=== PATIENT | male | born 1955 | race American Indian/Alaskan Native ===

== ENCOUNTER 2017-09-23 04:29 | Emergency (ER) | payer MEDICARE ==
[2017-09-23 06:03] LABS: Eosinophils # (Auto) 0.3 K/mm3 (0.0-0.4); Eosinophils % (Auto) 5.9 % (0.0-4.3); Hematocrit 38.7 % (35.5-45.6); Lymphocytes # (Auto) 2.2 K/mm3 (1.2-5.4); Lymphocytes % (Auto) 45.6 % (13.4-35.0); Mean Corpuscular HGB Conc 34 % (32-34); Mean Corpuscular Hemoglobin 34 pg (28-32); Mean Corpuscular Volume 100 fl (84-94); Monocytes # (Auto) 0.6 K/mm3 (0.0-0.8); Monocytes % (Auto) 11.7 % (0.0-7.3); Platelet Count 201 K/mm3 (140-440); Red Blood Count 3.86 M/mm3 (3.65-5.03); Red Cell Distribution Width 14.9 % (13.2-15.2)
--- NOTE | 2017-09-23 06:31 | Emergency Department Report ---
ED General Adult HPI - General Chief complaint: Medical Clearance Stated complaint: MED CLEARANCE Time Seen by Provider: 09/23/17 06:23 Source: patient, EMS Mode of arrival: Stretcher Limitations: No Limitations - History of Present Illness Initial comments: This is a 61-year-old man with a history of schizophrenia. He was seen and observed at [facility] through Sunday. He was transferred to [facility]. He states that his last heroin use was on Sunday. He states he also uses cocaine. He admits to intravenous drug abuse. I am not certain why [facility] wouldn't have sent this patient for emergency evaluation. He is resting comfortably. He is clearly not withdrawing from any medication. He is not acutely psychotic. The patient denies any hallucinosis now. He states the medicine that he is given at [facility] was beneficial. Apparently he additionally has history of HIV COPD and perhaps coronary artery disease/PA. He is literally resting comfortably and has no complaints. He denies any depression or suicidal ideation. He states he wants help with his drug use. -: Gradual - Related Data Allergies Allergy/AdvReac Type Severity Reaction Status Date / Time No Known Allergies Allergy Unverified 09/23/17 05:41 ED Review of Systems ROS: Stated complaint: MED CLEARANCE Other details as noted in HPI Constitutional: denies: chills, fever Eyes: denies: eye pain, eye discharge, vision change ENT: denies: ear pain, throat pain Respiratory: denies: cough, shortness of breath, wheezing Cardiovascular: denies: chest pain, palpitations Endocrine: no symptoms reported Gastrointestinal: denies: abdominal pain, nausea, diarrhea Genitourinary: denies: urgency, dysuria Musculoskeletal: denies: back pain, joint swelling, arthralgia Skin: denies: rash, lesions Neurological: denies: headache, weakness, paresthesias Psychiatric: as per HPI. denies: anxiety, depression, auditory hallucinations, visual hallucinations, homicidal thoughts, suicidal thoughts Hematological/Lymphatic: denies: easy bleeding, easy bruising ED Past Medical Hx - Past Medical History Previous Medical History?: Yes Hx Hypertension: Yes Hx Heart Attack/AMI: Yes Hx Psychiatric Treatment: Yes Hx COPD: Yes Hx HIV: Yes Additional medical history: Schizophrenia - Surgical History Past Surgical History?: No - Social History Smoking Status: Current Every Day Smoker Substance Use Type: Cocaine ED Physical Exam - General Limitations: No Limitations General appearance: alert, in no apparent distress - Head Head exam: Present: atraumatic, normocephalic - Eye Eye exam: Present: normal appearance, PERRL, EOMI. Absent: scleral icterus - ENT ENT exam: Present: mucous membranes moist - Neck Neck exam: Present: normal inspection - Respiratory Respiratory exam: Present: normal lung sounds bilaterally. Absent: respiratory distress - Cardiovascular Cardiovascular Exam: Present: regular rate, normal rhythm. Absent: systolic murmur, diastolic murmur, rubs, gallop - GI/Abdominal GI/Abdominal exam: Present: soft, normal bowel sounds. Absent: distended, tenderness, guarding, rebound, rigid - Rectal Rectal exam: Present: deferred - Extremities Exam Extremities exam: Present: normal inspection - Back Exam Back exam: Present: normal inspection - Neurological Exam Neurological exam: Present: alert, oriented X3, CN II-XII intact. Absent: motor sensory deficit - Psychiatric Psychiatric exam: Present: normal affect, normal mood - Skin Skin exam: Present: warm, dry, intact, normal color. Absent: rash ED Course Vital Signs 09/23/17 05:00 Temperature 97.7 F Pulse Rate 64 Respiratory 16 Rate Blood Pressure 142/85 Blood Pressure 142/85 [Right] O2 Sat by Pulse 100 Oximetry ED Medical Decision Making - Lab Data Result diagrams: 09/23/17 05:52 09/23/17 05:52 Laboratory Results - last 24 hr 09/23/17 05:52 WBC 4.9 RBC 3.86 Hgb 13.0 Hct 38.7 MCV 100 H MCH 34 H MCHC 34 RDW 14.9 Plt Count 201 Lymph % (Auto) 45.6 H [place] % (Auto) 11.7 H Eos % (Auto) 5.9 H Baso % (Auto) 1.0 Lymph # 2.2 [place] # 0.6 Eos # 0.3 Baso # 0.0 Seg Neutrophils % 35.8 L Seg Neutrophils # 1.8 Laboratory Results - last 24 hr 09/23/17 09/23/17 09/23/17 05:20 05:20 05:52 WBC RBC Hgb Hct MCV MCH MCHC RDW Plt Count Lymph % (Auto) [place] % (Auto) Eos % (Auto) Baso % (Auto) Lymph # [place] # Eos # Baso # Seg Neutrophils % Seg Neutrophils # Sodium Potassium Chloride Carbon Dioxide Anion Gap BUN Creatinine Estimated GFR BUN/Creatinine Ratio Glucose Calcium Urine Color Yellow Urine Turbidity Clear Urine pH 6.0 Ur Specific [place] 1.006 Urine Protein 30 mg/dl Urine Glucose (UA) Neg Urine Ketones Neg Urine Blood Neg Urine Nitrite Neg Urine Bilirubin Neg Urine Urobilinogen < 2.0 Ur Leukocyte Esterase Neg Urine WBC (Auto) 1.0 Urine RBC (Auto) 1.0 Salicylates < 0.3 L Urine Opiates Screen Presumptive negative Urine Methadone Screen Presumptive negative Acetaminophen Ur Barbiturates Screen Presumptive negative Ur Phencyclidine Scrn Presumptive negative Ur Amphetamines Screen Presumptive negative U Benzodiazepines Scrn Presumptive negative Urine Cocaine Screen Presumptive negative U Marijuana (THC) Screen Presumptive negative Drugs of Abuse Note Disclamer Plasma/Serum Alcohol 09/23/17 09/23/17 09/23/17 05:52 05:52 05:52 WBC RBC Hgb Hct MCV MCH MCHC RDW Plt Count Lymph % (Auto) [place] % (Auto) Eos % (Auto) Baso % (Auto) Lymph # [place] # Eos # Baso # Seg Neutrophils % Seg Neutrophils # Sodium 136 L Potassium 3.7 Chloride 97.6 L Carbon Dioxide 21 L Anion Gap 21 BUN 16 Creatinine 1.6 H Estimated GFR 53 BUN/Creatinine Ratio 10 Glucose 133 H Calcium 9.7 Urine Color Urine Turbidity Urine pH Ur Specific [place] Urine Protein Urine Glucose (UA) Urine Ketones Urine Blood Urine Nitrite Urine Bilirubin Urine Urobilinogen Ur Leukocyte Esterase Urine WBC (Auto) Urine RBC (Auto) Salicylates Urine Opiates Screen Urine Methadone Screen Acetaminophen < 5.0 L Ur Barbiturates Screen Ur Phencyclidine Scrn Ur Amphetamines Screen U Benzodiazepines Scrn Urine Cocaine Screen U Marijuana (THC) Screen Drugs of Abuse Note Plasma/Serum Alcohol < 0.01 09/23/17 05:52 WBC 4.9 RBC 3.86 Hgb 13.0 Hct 38.7 MCV 100 H MCH 34 H MCHC 34 RDW 14.9 Plt Count 201 Lymph % (Auto) 45.6 H [place] % (Auto) 11.7 H Eos % (Auto) 5.9 H Baso % (Auto) 1.0 Lymph # 2.2 [place] # 0.6 Eos # 0.3 Baso # 0.0 Seg Neutrophils % 35.8 L Seg Neutrophils # 1.8 Sodium Potassium Chloride Carbon Dioxide Anion Gap BUN Creatinine Estimated GFR BUN/Creatinine Ratio Glucose Calcium Urine Color Urine Turbidity Urine pH Ur Specific [place] Urine Protein Urine Glucose (UA) Urine Ketones Urine Blood Urine Nitrite Urine Bilirubin Urine Urobilinogen Ur Leukocyte Esterase Urine WBC (Auto) Urine RBC (Auto) Salicylates Urine Opiates Screen Urine Methadone Screen Acetaminophen Ur Barbiturates Screen Ur Phencyclidine Scrn Ur Amphetamines Screen U Benzodiazepines Scrn Urine Cocaine Screen U Marijuana (THC) Screen Drugs of Abuse Note Plasma/Serum Alcohol Critical care attestation.: If time is entered above; I have spent that time in minutes in the direct care of this critically ill patient, excluding procedure time. ED Disposition Clinical Impression: Polysubstance abuse Schizophrenia Qualifiers: Schizophrenia type: unspecified Qualified Code(s): F20.9 - Schizophrenia, unspecified Disposition: TO HOME OR SELFCARE Is pt being admited?: No Does the pt Need Aspirin: No Condition: Stable Instructions: Schizophrenia (ED), Polysubstance Abuse (ED) Additional Instructions: Further care at the [facility]. No emergency treatment is required at this time. Certainly continue your medication for schizophrenia. [facility] to evaluate this patient for his polysubstance abuse and recommended treatment thereof. Referrals: PRIMARY CARE [Primary Care Provider] - 3-5 Days [facility] provider [Other] - 3-5 Days Time of Disposition: 07:53
[2017-09-23 06:43] LABS: Calcium 9.7 mg/dL (8.4-10.2)
[2017-09-23 07:21] LABS: Bilirubin,Urine NEG (Negative); Blood,Urine NEG (Negative); Color,Urine Yellow (Yellow); Urobilinogen,Urine < 2.0 mg/dL (<2.0)
[2017-09-23 07:29] LABS: Amphetamine Screen,Urine PRESUMPTIVE NEGATIVE; Benzodiazepines Screen,Urine PRESUMPTIVE NEGATIVE; Cannabinoid Screen,Urine PRESUMPTIVE NEGATIVE; Cocaine Screen,Urine PRESUMPTIVE NEGATIVE; Methadone Screen,Urine PRESUMPTIVE NEGATIVE; Opiate Screen,Urine PRESUMPTIVE NEGATIVE
[2017-09-23 09:55] VITALS: BP 128/82
== END 2017-09-23 09:57 | disposition home or self-care (01) ==
LOC: ED 04:29
DX: F20.9 Schizophrenia, unspecified (principal); F11.10 Opioid abuse, uncomplicated; F14.10 Cocaine abuse, uncomplicated; F19.10 Other psychoactive substance abuse, uncomplicated; I10 Essential (primary) hypertension; I25.2 Old myocardial infarction; J44.9 Chronic obstructive pulmonary disease, unspecified; F17.200 Nicotine dependence, unspecified, uncomplicated
CPT/HCPCS: 36415; 80048; 80307; 81001; 85025; 99284; G0480; 80320

== ENCOUNTER 2018-09-17 15:25 | Inpatient (IN) | payer MEDICARE ==
--- NOTE | 2018-09-17 16:34 | Event Note ---
ED Screening Note ED Screening Note: HIV DX 1992 HTN FEELS LIKE HE SOMETHING STUCK IN HIS THROAT NO FEVER POS CHILLS POOR PO This initial assessment/diagnostic orders/clinical plan/treatment(s) is/are subject to change based on patients health status, clinical progression and re- assessment by fellow clinical providers in the ED. Further treatment and workup at subsequent clinical providers discretion. Patient/guardian urged not to elope from the ED as their condition may be serious if not clinically assessed and managed. Initial orders include: XRAY LABS UA
[2018-09-17 16:59] LABS: Hematocrit 37.7 % (35.5-45.6); Mean Corpuscular HGB Conc 34 % (32-34); Mean Corpuscular Volume 98 fl (84-94); Platelet Count 195 K/mm3 (140-440); Red Blood Count 3.87 M/mm3 (3.65-5.03); Red Cell Distribution Width 14.3 % (13.2-15.2)
[2018-09-17 17:14] LABS: Calcium 8.7 mg/dL (8.4-10.2)
--- NOTE | 2018-09-17 17:36 | XRay Report ---
CHEST 2 VIEWS INDICATION / CLINICAL INFORMATION: CHEST PAIN. COMPARISON: None available. FINDINGS: SUPPORT DEVICES: None. HEART / MEDIASTINUM: No significant abnormality. LUNGS / PLEURA: Multiple calcified granulomata in the right upper lung. Lungs are hyperexpanded sugge sting COPD. No focal consolidation or significant effusion. No pneumothorax. ADDITIONAL FINDINGS: No significant additional findings. IMPRESSION: 1. No acute findings. Signer Name: Wilton Devi MD Signed: 09/17/2018 5:32 PM Workstation Name: [id number]
--- NOTE | 2018-09-17 17:37 | XRay Report ---
Soft tissues the neck INDICATION: Feels like something stuck in throat FINDINGS: There is a linear radiopaque structure in the valleculae. This could represent a small bone . The prevertebral soft tissues are unremarkable. The airway appears patent. Atherosclerotic calcifications are noted in the left carotid artery. Signer Name: Eric Whatley MD Signed: 09/17/2018 5:33 PM Workstation Name: [id number]
[2018-09-17 18:21] LABS: Bilirubin,Urine NEG (Negative); Blood,Urine NEG (Negative); Color,Urine Yellow (Yellow); Urobilinogen,Urine < 2.0 mg/dL (<2.0)
[2018-09-17] MEDS ORDERED: NACL 0.9% 1000 ML 1,000 ML IV ONE (18:37)
[2018-09-17] MEDS ORDERED: MORPHINE IV ONE (19:18)
[2018-09-17] MEDS ORDERED: ZOFRAN IV ONE (19:18)
--- NOTE | 2018-09-17 19:18 | Emergency Department Report ---
ED General Adult HPI - General Chief complaint: Chest Pain Stated complaint: SORE THROAT/VOMITTING Time Seen by Provider: 09/17/18 16:32 Source: patient Mode of arrival: Ambulatory Limitations: No Limitations - History of Present Illness Initial comments: 62-year-old male comes in with nausea vomiting constipation and difficulty swallowing as well as chest pain. Patient has a past medical history of COPD [place] HIV and hypertension. Patient reports that he is currently taking his infections disease medication. Patient reports that he is on lisinopril for hypertension. Patient reports he feels like something is stuck in his throat. He denies any fever chills. Onset/Timin -: days(s) Location: chest Consistency: intermittent Associated Symptoms: denies other symptoms Treatments Prior to Arrival: none - Related Data Home Medications Medication Instructions Recorded Confirmed Last Taken RX: Emtricitab/Rilpiviri/Tenof Ala 1 each PO QAM 09/17/18 09/17/18 Unknown [Odefsey Tablet] RX: Ibuprofen [Motrin 800 MG tab] 800 mg PO BID PRN 09/17/18 09/17/18 Unknown Previous Rx's Medication Instructions Recorded Last Taken Type RX: Aspirin [Aspirin BABY CHEW TAB] 81 mg PO QDAY #30 tab.chew 09/24/18 Unknown Rx RX: AtorvaSTATin [Lipitor] 40 mg PO QHS #30 tablet 09/24/18 Unknown Rx RX: Docusate Sodium [Colace CAP] 100 mg PO BID PRN #20 capsule 09/24/18 Unknown Rx RX: Fluconazole [Diflucan TAB] 200 mg PO QDAY #5 tablet 09/24/18 Unknown Rx RX: Lisinopril [Zestril TAB] 40 mg PO QDAY #30 tablet 09/24/18 Unknown Rx RX: Metoprolol [Lopressor TAB] 25 mg PO BID #60 tablet 09/24/18 Unknown Rx RX: Nicotine [Habitrol] 14 mg TD QDAY #30 patch 09/24/18 Unknown Rx RX: Nystas/Diphen/Xyl Visc/Mylanta 15 ml PO TID 10 Days oral.liqd 09/24/18 Unknown Rx [Magic Mouthwash] RX: Pantoprazole [Protonix TAB] 40 mg PO DAILY #30 tablet 09/24/18 Unknown Rx RX: Spironolactone [Aldactone] 25 mg PO QDAY #30 tablet 09/24/18 Unknown Rx RX: hydrALAZINE [Apresoline TAB] 50 mg PO TID #90 tab 09/24/18 Unknown Rx RX: HYDROcodone/APAP 10-325 [[place] 1 each PO Q6H PRN #6 tablet 09/27/18 Unknown Rx 10-325 mg TAB] Allergies Allergy/AdvReac Type Severity Reaction Status Date / Time Lettuce Allergy Unknown Uncoded 09/18/18 17:27 ED Review of Systems ROS: Stated complaint: SORE THROAT/VOMITTING Other details as noted in HPI Comment: All other systems reviewed and negative ENT: denies: ear pain, throat pain Respiratory: denies: cough, shortness of breath, wheezing Cardiovascular: chest pain Gastrointestinal: nausea, vomiting Genitourinary: denies: urgency, dysuria Skin: denies: rash, lesions Neurological: denies: headache, weakness, paresthesias Psychiatric: denies: anxiety, depression ED Past Medical Hx - Past Medical History Hx Hypertension: Yes Hx Heart Attack/AMI: Yes Hx Psychiatric Treatment: Yes Hx COPD: Yes Hx HIV: Yes Additional medical history: Schizophrenia - Social History Smoking Status: Never Smoker Substance Use Type: None - Medications Home Medications: Home Medications Medication Instructions Recorded Confirmed Last Taken Type RX: Emtricitab/Rilpiviri/Tenof [place] 1 each PO QAM 09/17/18 09/17/18 Unknown History [Odefsey Tablet] RX: Ibuprofen [Motrin 800 MG tab] 800 mg PO BID PRN 09/17/18 09/17/18 Unknown History RX: Aspirin [Aspirin BABY CHEW TAB] 81 mg PO QDAY #30 tab.chew 09/24/18 Unknown Rx RX: AtorvaSTATin [Lipitor] 40 mg PO QHS #30 tablet 09/24/18 Unknown Rx RX: Docusate Sodium [Colace CAP] 100 mg PO BID PRN #20 capsule 09/24/18 Unknown Rx RX: Fluconazole [Diflucan TAB] 200 mg PO QDAY #5 tablet 09/24/18 Unknown Rx RX: Lisinopril [Zestril TAB] 40 mg PO QDAY #30 tablet 09/24/18 Unknown Rx RX: Metoprolol [Lopressor TAB] 25 mg PO BID #60 tablet 09/24/18 Unknown Rx RX: Nicotine [Habitrol] 14 mg TD QDAY #30 patch 09/24/18 Unknown Rx RX: Nystas/Diphen/Xyl Visc/Mylanta 15 ml PO TID 10 Days oral.liqd 09/24/18 Unknown Rx [Magic Mouthwash] RX: Pantoprazole [Protonix TAB] 40 mg PO DAILY #30 tablet 09/24/18 Unknown Rx RX: Spironolactone [Aldactone] 25 mg PO QDAY #30 tablet 09/24/18 Unknown Rx RX: hydrALAZINE [Apresoline TAB] 50 mg PO TID #90 tab 09/24/18 Unknown Rx RX: HYDROcodone/APAP 10-325 [[place] 1 each PO Q6H PRN #6 tablet 09/27/18 Unknown Rx 10-325 mg TAB] ED Physical Exam - General Limitations: No Limitations General appearance: alert, in no apparent distress, cachectic - Head Head exam: Present: atraumatic, normocephalic - Eye Eye exam: Present: normal appearance - ENT ENT exam: Present: mucous membranes moist - Neck Neck exam: Present: lymphadenopathy - Respiratory Respiratory exam: Present: normal lung sounds bilaterally. Absent: respiratory distress - Cardiovascular Cardiovascular Exam: Present: tachycardia - GI/Abdominal GI/Abdominal exam: Present: soft, normal bowel sounds. Absent: distended, tenderness - Back Exam Back exam: Present: normal inspection, full ROM - Neurological Exam Neurological exam: Present: alert, oriented X3, normal gait - Psychiatric Psychiatric exam: Present: normal affect, normal mood - Skin Skin exam: Present: warm, dry, intact, normal color. Absent: rash ED Course Vital Signs 09/17/18 09/17/18 09/17/18 16:34 19:00 20:40 Temperature 97.9 F 98.7 F 98.3 F Pulse Rate 96 H 90 72 Respiratory 16 18 17 Rate Blood Pressure 101/53 122/65 Blood Pressure 132/69 [Right] O2 Sat by Pulse 99 100 100 Oximetry 09/17/18 22:40 Temperature 97.7 F Pulse Rate 71 Respiratory 16 Rate Blood Pressure Blood Pressure 142/73 [Right] O2 Sat by Pulse 97 Oximetry ED Medical Decision Making - Lab Data Result diagrams: 09/23/18 04:00 09/23/18 04:00 - Radiology Data Radiology results: report reviewed Patient: GEGE CASTILLO MR#: [id number] : 1955 Acct:[id number] Age/Sex: 62 / M ADM Date: 09/17/18 Loc: ED Attending Dr: Ordering Physician: SONU DIAZ Date of Service: 09/17/18 Procedure(s): XR neck soft tissue Accession Number(s): [id number] cc: SONU DIAZ Fluoro Time In Minutes: Soft tissues the neck INDICATION: Feels like something stuck in throat FINDINGS: There is a linear radiopaque structure in the valleculae. This could represent a small bone. The prevertebral soft tissues are unremarkable. The airway appears patent. Atherosclerotic calcifications are noted in the left carotid artery. Signer Name: Eric Whatley MD Signed: 09/17/2018 5:33 PM Workstation Name: [id number] Transcribed By: Dictated By: Eric Whatley MD Electronically Authenticated By: Eric Whatley MD Signed Date/Time: 09/17/18 173 DD/ 30 TD/TT: - Medical Decision Making 62-year-old male comes in for chest pain radiates down his left arm. Patient has significant past medical history of HIV. Patient will have basic labs EKG. Patient be admitted for chest pain. Critical care attestation.: If time is entered above; I have spent that time in minutes in the direct care of this critically ill patient, excluding procedure time. ED Disposition Clinical Impression: Acute kidney injury superimposed on CKD Disposition: OP ADMIT IP TO THIS HOSP Is pt being admited?: Yes Does the pt Need Aspirin: No Condition: Stable
[2018-09-17] MEDS ORDERED: ZOFRAN IV PRN (19:57)
[2018-09-17] MEDS ORDERED: SODIUM CHLORIDE FLUSH SYRINGE 10 ML IV PRN ×2 (19:57)
[2018-09-17] MEDS ORDERED: PROVENTIL IH PRN (19:57)
[2018-09-17] MEDS ORDERED: DUONEB *Not for PRN Use IH SCH (20:00)
[2018-09-17] MEDS ORDERED: NITROSTAT SL PRN (20:03)
--- NOTE | 2018-09-17 20:47 | History and Physical Report ---
History of Present Illness Date of examination: 09/17/18 Date of admission: 09/17/2018 Chief complaint: Chest pain History of present illness: 61-year-old -Liberian male with history of COPD, MT, retention, HIV who presents [facility] with complaints of chest pain. Patient states that he's been experiencing intermittent left-sided chest pain accompanied by nausea, vomiting and constipation for the past 4 days. He also complains of throat discomfort. He states that it feels like "something is stuck in his throat". He rates his chest pain 6/10 describes that as achy. He states that his chest pain radiates to his left upper arm. This pain is aggravated with meal consumption and exertion. He admits to being compliant with antiretroviral medication, and follows an ID physician (can't recall name). He denies any further cardiac history or cardiac workup. Denies: fever, diarrhea, diaphoresis, cough, sputum production, hemoptysis, headache, or recent sick contacts Past History Past Medical History: acute MT, COPD, HIV/AIDS, hypertension, other (schizophrenia) Past Surgical History: No surgical history Social history: no significant social history Family history: no significant family history Medications and Allergies Allergies Allergy/AdvReac Type Severity Reaction Status Date / Time No Known Allergies Allergy Verified 09/17/18 15:27 Home Medications Medication Instructions Recorded Confirmed Last Taken Type Emtricitab/Rilpiviri/Tenof Ala 1 each PO QAM 09/17/18 09/17/18 Unknown History [Odefsey Tablet] HYDROcodone/APAP 10-325 [[place] 1 each PO Q6H PRN 09/17/18 09/17/18 Unknown History 10/325] Ibuprofen [Motrin] 800 mg PO BID PRN 09/17/18 09/17/18 Unknown History Lisinopril [Zestril TAB] 40 mg PO BID 09/17/18 09/17/18 Unknown History Active Meds: Active Medications Acetaminophen (Tylenol) 650 mg PO Q4H PRN PRN Reason: Pain MILD(1-3)/Fever >100.5/HORNE Albuterol (Proventil) 2.5 mg IH Q4HRT PRN PRN Reason: Shortness Of Breath Albuterol/Ipratropium (Duoneb *Not For Prn Use*) 1 ampul IH Q6HRT [facility] Aspirin (Baby Aspirin) 81 mg PO QDAY [facility] Atorvastatin Calcium (Lipitor) 40 mg PO QHS [facility] Docusate Sodium (Colace) 100 mg PO BID [facility] Enoxaparin Sodium (Lovenox) 40 mg SUB-Q QDAY [facility] Sodium Chloride (Nacl 0.9% 1000 Ml) 1,000 mls @ 100 mls/hr IV DIRECT SKY Ceftriaxone Sodium (Rocephin/Ns 1 Gm/50 Ml) 1 gm in 50 mls @ 100 mls/hr IV Q24H [facility]; Protocol Lisinopril (Zestril) 40 mg PO BID [facility] Miscellaneous Medication (Emtricitab/Rilpiviri/Tenof Ala [Odefsey Tablet]) 1 each PO QAM [facility] Morphine Sulfate (Morphine) 2 mg IV Q4H PRN PRN Reason: Pain, Moderate (4-6) Stop: 09/18/18 23:59 Nitroglycerin (Nitrostat) 0.4 mg SL Q5M PRN PRN Reason: Chest Pain Ondansetron HCl (Zofran) 4 mg IV Q8H PRN PRN Reason: Nausea And Vomiting Oxycodone/Acetaminophen (Percocet 5/325) 1 tab PO Q6H PRN PRN Reason: Pain, Moderate (4-6) Sodium Chloride (Sodium Chloride Flush Syringe 10 Ml) 10 ml IV BID [facility] Sodium Chloride (Sodium Chloride Flush Syringe 10 Ml) 10 ml IV PRN PRN PRN Reason: LINE FLUSH Review of Systems All systems: negative (reviewed and no additional remarkable complaints except as noted below) Cardiovascular: chest pain (with radiation to left arm), high blood pressure Respiratory: other (throat soreness/pain) Exam - Physical Exam Narrative exam: Physical exam General appearance: Present: No acute distress, alert and oriented 3, thin older adult male - EENT Eyes: Present: PERRL, EOM intact ENT: hearing intact, normal dentition - Neck Neck: Present: supple, normal ROM - Respiratory Respiratory effort: Non-labored Respiratory: Clear throughout - Cardiovascular Heart rate:92 (bpm) Rhythm: Sinus rhythm, biatrial enlargement Heart Sounds: Present: S1 & S2. Absent: rub, click - Extremities Extremities: no ischemia, pulses intact, - Peripheral Assessment Peripheral Pulses: within normal limits - Abdominal General gastrointestinal: soft, non-tender, normal bowel sounds - Integumentary Integumentary: Present: warm, dry - Musculoskeletal Musculoskeletal: Normal gait - Psychiatric Psychiatric: cooperative - Constitutional Vitals: Temp Pulse Resp BP Pulse Ox 98.3 F 72 17 122/65 100 09/17/18 20:40 09/17/18 20:40 09/17/18 20:40 09/17/18 20:40 09/17/18 20:40 Results - Labs CBC & Chem 7: 09/17/18 16:48 09/17/18 16:48 Labs: Laboratory Last Values WBC 7.6 K/mm3 (4.5-11.0) 09/17/18 16:48 RBC 3.87 M/mm3 (3.65-5.03) 09/17/18 16:48 Hgb 13.0 gm/dl (11.8-15.2) 09/17/18 16:48 Hct 37.7 % (35.5-45.6) 09/17/18 16:48 MCV 98 fl (84-94) H 09/17/18 16:48 MCH 34 pg (28-32) H 09/17/18 16:48 MCHC 34 % (32-34) 09/17/18 16:48 RDW 14.3 % (13.2-15.2) 09/17/18 16:48 Plt Count 195 K/mm3 (140-440) 09/17/18 16:48 Sodium 133 mmol/L (137-145) L 09/17/18 16:48 Potassium 3.7 mmol/L (3.6-5.0) 09/17/18 16:48 Chloride 99.7 mmol/L (98-107) 09/17/18 16:48 Carbon Dioxide 16 mmol/L (22-30) L 09/17/18 16:48 21 mmol/L 09/17/18 16:48 BUN 29 mg/dL (9-20) H 09/17/18 16:48 3.6 mg/dL (0.8-1.5) H 09/17/18 16:48 Estimated GFR 21 ml/min 09/17/18 16:48 8 % 09/17/18 16:48 Glucose 95 mg/dL (75-100) 09/17/18 16:48 Calcium 8.7 mg/dL (8.4-10.2) 09/17/18 16:48 Phosphorus 4.90 mg/dL (2.5-4.5) H 09/17/18 17:34 Magnesium 2.10 mg/dL (1.7-2.3) 09/17/18 17:34 < 0.010 ng/mL (0.00-0.029) 09/17/18 19:03 NT-Pro-B Natriuret Pep 636.1 pg/mL (0-900) 09/17/18 17:34 Yellow (Yellow) 09/17/18 18:00 Slightly-cloudy (Clear) 09/17/18 18:00 5.0 (5.0-7.0) 09/17/18 18:00 Ur Specific [place] 1.020 (1.003-1.030) 09/17/18 18:00 100 mg/dl mg/dL (Negative) 09/17/18 18:00 Neg mg/dL (Negative) 09/17/18 18:00 Neg mg/dL (Negative) 09/17/18 18:00 Neg (Negative) 09/17/18 18:00 Neg (Negative) 09/17/18 18:00 Neg (Negative) 09/17/18 18:00 < 2.0 mg/dL (<2.0) 09/17/18 18:00 Ur Leukocyte Esterase Neg (Negative) 09/17/18 18:00 12.0 /HPF (0.0-6.0) H 09/17/18 18:00 1.0 /HPF (0.0-6.0) 09/17/18 18:00 Group A Strep Rapid Negative (Negative) 09/17/18 Unknown - Imaging and Cardiology Chest x-ray: report reviewed (Multiple calcified granuloma in right upper lung. Lungs are hyperexpanded chest and COPD. No focal consolidation or significant effusion. No pneumothorax.), image reviewed Imaging and Cardiology: Throat/ Neck XR: FINDINGS: There is a linear radiopaque structure in the valleculae. This could represent a small bone. The prevertebral soft tissues are unremarkable. The airway appears patent. Atherosclerotic calcifications are noted in the left carotid artery. Assessment and Plan Assessment and plan: 61-year-old -Liberian male with history of COPD, MT, retention, HIV who presents [facility] with complaints of intermittent left-sided chest pain with radiation to left arm and the discomfort for the past 4 days. CXR showed hyperexpanded lungs chest of COPD. No acute cardiopulmonary abnormalities noted. Neck x-ray was unrevealing for acute abnormalities. He was found to be mildly hyponatremic with Na of 133. Elevated urine WBC at 12.0. Will admit to telemetry for further evaluation and treatment. Hyponatremia Urinary tract infection Acute on chronic renal failure Acute CP R/O ACS ?? Strep Throat- less likely ?? Dysphasia- more likely HIV positive HTN Plan: Continue supportive care Continuous radiation monitor Group B strep negative Nothing by mouth Speech eval pending Monitor renal function Creatinine this admission 3.6, baseline creatinine 1.6 Gentle hydration with normal saline @ 42ml/hr Nephrology consult pending Monitor electrolytes, replete as needed Urine WBC 12.0 Urine and blood culture pending Start Rocephin 1 g every 24 hours ID consulted Resume home antiretroviral medication Troponin negative 2, will continue to trend Echocardiogram and thallium stress test pending Cardiology consult pending Scheduled Duonebs, albuterol when necessary Monitor BP Continue home hypertensive med: Lisinopril 40 mg twice a day Start ASA 81 mg daily, Lipitor 40 mg daily at bedtime Lipid panel pending DVT PPX on Heparin Advance Directives: No VTE prophylaxis?: Chemical Plan of care discussed with patient/family: Yes
[2018-09-17] MEDS ORDERED: NACL 0.9% 1000 ML 1,000 ML IV SCH (21:00)
[2018-09-17] MEDS ORDERED: ROCEPHIN/NS 1 GM/50 ML 1 GM/50 ML BAG IV SCH (21:00)
[2018-09-17] MEDS ORDERED: ROCEPHIN/NS 1 GM/50 ML 1 GM/50 ML BAG IV ONE (22:38)
[2018-09-17] MEDS ORDERED: HEPARIN ONE (22:39)
[2018-09-17] MEDS ORDERED: COLACE ONE (22:39)
[2018-09-17] MEDS: HEPARIN SUB-Q SCH (22:45)
[2018-09-17] MEDS: SODIUM CHLORIDE FLUSH SYRINGE 10 ML IV SCH (22:45)
[2018-09-17] MEDS: COLACE PO SCH (22:45)
[2018-09-17] MEDS: ZESTRIL PO SCH (22:45)
[2018-09-17] MEDS ORDERED: MORPHINE ONE (22:48)
[2018-09-17] MEDS: MORPHINE IV PRN (22:54)
[2018-09-18] MEDS ORDERED: PROTONIX IV ONE (00:34)
[2018-09-18] MEDS: MORPHINE IV PRN ×2 (03:39→22:14)
[2018-09-18 06:48] LABS: Basophils % (Auto) 0.7 % (0.0-1.8); Eosinophils # (Auto) 0.2 K/mm3 (0.0-0.4); Eosinophils % (Auto) 2.6 % (0.0-4.3); Hematocrit 34.7 % (35.5-45.6); Lymphocytes # (Auto) 1.3 K/mm3 (1.2-5.4); Lymphocytes % (Auto) 20.5 % (13.4-35.0); Mean Corpuscular HGB Conc 35 % (32-34); Mean Corpuscular Volume 97 fl (84-94); Monocytes % (Auto) 14.9 % (0.0-7.3); Platelet Count 166 K/mm3 (140-440); Red Blood Count 3.57 M/mm3 (3.65-5.03); Red Cell Distribution Width 14.3 % (13.2-15.2)
[2018-09-18] MEDS ORDERED: LEXISCAN IV NR (07:43)
[2018-09-18] MEDS: DUONEB *Not for PRN Use IH SCH ×3 (08:02→20:33)
[2018-09-18 08:22] LABS: Chol/HDL Ratio 8.11 %
[2018-09-18] MEDS ORDERED: LOVENOX SUB-Q SCH (10:00)
--- NOTE | 2018-09-18 10:48 | Progress Note ---
Assessment and Plan Assessment and plan: 61-year-old -[place] male with history of COPD, [place], retention, HIV who presents [facility] with complaints of intermittent left-sided chest pain with radiation to left arm and the discomfort for the past 4 days. CXR showed hyperexpanded lungs chest of COPD. No acute cardiopulmonary abnormalities noted. Neck x-ray was unrevealing for acute abnormalities. He was found to be mildly hyponatremic with Na of 133. Elevated urine WBC at 12.0. Will admit to telemetry for further evaluation and treatment. --Hyponatremia;, continue replacement therapy with normal saline Closely monitor electrolytes --Acute on chronic renal failure; vasomotor nephropathy Closely monitor renal function, avoid nephrotoxins, nephrology following --HIV; continue current management per ID Patient follows with [facility], --Dysphagia; supportive care, Magic mouthwash swish and swallow Diet as tolerated, GI consult improvement Also consider [place] esophagitis --Severe malnutrition; nutrition supplements and supportive care Nutrition consult as needed --DVT prophylaxis; Lovenox Monitor closely and adjust management as needed History Interval history: Patient seen and examined medical records reviewed Complaints of sore throat difficulty swallowing No other Complaints Vital signs noted Hospitalist Physical - Constitutional Vitals: Temp Pulse Resp BP Pulse Ox 98.1 F 73 18 124/61 87 09/18/18 07:41 09/18/18 07:41 09/18/18 07:41 09/18/18 07:41 09/18/18 07:41 General appearance: Present: no acute distress, cachectic, disheveled - EENT Eyes: Present: PERRL, EOM intact - Neck Neck: Present: supple, normal ROM - Respiratory Respiratory effort: normal Respiratory: bilateral: diminished, negative: rales, rhonchi, wheezing - Cardiovascular Rhythm: regular Heart Sounds: Present: S1 & S2 - Extremities Extremities: no ischemia, No edema - Abdominal General gastrointestinal: soft, non-tender, non-distended, normal bowel sounds - Integumentary Integumentary: Present: clear, warm - Psychiatric Psychiatric: appropriate mood/affect, cooperative - Neurologic Neurologic: CNII-XII intact, moves all extremities Results - Labs CBC & Chem 7: 09/18/18 05:48 09/18/18 05:48 Labs: Laboratory Last Values WBC 6.5 K/mm3 (4.5-11.0) 09/18/18 05:48 RBC 3.57 M/mm3 (3.65-5.03) L 09/18/18 05:48 Hgb 12.0 gm/dl (11.8-15.2) 09/18/18 05:48 Hct 34.7 % (35.5-45.6) L 09/18/18 05:48 MCV 97 fl (84-94) H 09/18/18 05:48 MCH 34 pg (28-32) H 09/18/18 05:48 MCHC 35 % (32-34) H 09/18/18 05:48 RDW 14.3 % (13.2-15.2) 09/18/18 05:48 Plt Count 166 K/mm3 (140-440) 09/18/18 05:48 Lymph % (Auto) 20.5 % (13.4-35.0) 09/18/18 05:48 [place] % (Auto) 14.9 % (0.0-7.3) H 09/18/18 05:48 Eos % (Auto) 2.6 % (0.0-4.3) 09/18/18 05:48 Baso % (Auto) 0.7 % (0.0-1.8) 09/18/18 05:48 Lymph # 1.3 K/mm3 (1.2-5.4) 09/18/18 05:48 [place] # 1.0 K/mm3 (0.0-0.8) H 09/18/18 05:48 Eos # 0.2 K/mm3 (0.0-0.4) 09/18/18 05:48 Baso # 0.0 K/mm3 (0.0-0.1) 09/18/18 05:48 Seg Neutrophils % 61.3 % (40.0-70.0) 09/18/18 05:48 Seg Neutrophils # 4.0 K/mm3 (1.8-7.7) 09/18/18 05:48 Sodium 136 mmol/L (137-145) L 09/18/18 05:48 Potassium 3.5 mmol/L (3.6-5.0) L 09/18/18 05:48 Chloride 105.8 mmol/L (98-107) 09/18/18 05:48 Carbon Dioxide 16 mmol/L (22-30) L 09/18/18 05:48 18 mmol/L 09/18/18 05:48 BUN 26 mg/dL (9-20) H 09/18/18 05:48 3.0 mg/dL (0.8-1.5) H 09/18/18 05:48 Estimated GFR 26 ml/min 09/18/18 05:48 9 % 09/18/18 05:48 Glucose 85 mg/dL (75-100) 09/18/18 05:48 Calcium 8.0 mg/dL (8.4-10.2) L 09/18/18 05:48 Phosphorus 4.90 mg/dL (2.5-4.5) H 09/17/18 17:34 Magnesium 2.10 mg/dL (1.7-2.3) 09/17/18 17:34 < 0.010 ng/mL (0.00-0.029) 09/18/18 00:44 NT-Pro-B Natriuret Pep 636.1 pg/mL (0-900) 09/17/18 17:34 Triglycerides 255 mg/dL (2-149) H 09/18/18 05:48 Cholesterol 146 mg/dL (50-199) 09/18/18 05:48 76 mg/dL (50-130) 09/18/18 05:48 18 mg/dL (40-59) L 09/18/18 05:48 8.11 % 09/18/18 05:48 Yellow (Yellow) 09/17/18 18:00 Slightly-cloudy (Clear) 09/17/18 18:00 5.0 (5.0-7.0) 09/17/18 18:00 Ur Specific [place] 1.020 (1.003-1.030) 09/17/18 18:00 100 mg/dl mg/dL (Negative) 09/17/18 18:00 Neg mg/dL (Negative) 09/17/18 18:00 Neg mg/dL (Negative) 09/17/18 18:00 Neg (Negative) 09/17/18 18:00 Neg (Negative) 09/17/18 18:00 Neg (Negative) 09/17/18 18:00 < 2.0 mg/dL (<2.0) 09/17/18 18:00 Ur Leukocyte Esterase Neg (Negative) 09/17/18 18:00 12.0 /HPF (0.0-6.0) H 09/17/18 18:00 1.0 /HPF (0.0-6.0) 09/17/18 18:00 Group A Strep Rapid Negative (Negative) 09/17/18 Unknown Active Medications - Current Medications Current Medications: Generic Name Dose Route Start Last Admin Trade Name Freq PRN Reason Stop Dose Admin Acetaminophen 650 mg 09/17/18 19:57 Tylenol PO Q4H PRN Pain MILD(1-3)/Fever >100.5/HORNE Albuterol 2.5 mg 09/17/18 19:57 Proventil IH Q4HRT PRN Shortness Of Breath Albuterol/Ipratropium 1 ampul 09/18/18 08:00 09/18/18 08:02 Duoneb *Not For Prn Use* IH Not Given TIDRT [facility] Aspirin 81 mg 09/18/18 10:00 Baby Aspirin PO QDAY [facility] Atorvastatin Calcium 40 mg 09/17/18 22:00 09/17/18 22:45 Lipitor PO 40 mg QHS [facility] Administration Docusate Sodium 100 mg 09/17/18 22:00 09/17/18 22:45 Colace PO 100 mg BID [facility] Administration Heparin Sodium (Porcine) 5,000 unit 09/17/18 22:00 09/17/18 22:45 Heparin SUB-Q 5,000 unit Q12HR [facility] Administration Sodium Chloride 1,000 mls @ 42 mls/hr 09/17/18 21:00 09/18/18 00:32 Nacl 0.9% 1000 Ml IV 42 mls/hr DIRECT [facility] Administration Ceftriaxone Sodium 1 gm in 50 mls @ 100 mls/hr 09/17/18 21:00 09/17/18 22:45 Rocephin/Ns 1 Gm/50 Ml IV 100 mls/hr Q24H [facility] Administration Protocol Lisinopril 40 mg 09/17/18 22:00 09/17/18 22:45 Zestril PO 40 mg BID [facility] Administration Miscellaneous Medication 1 each 09/18/18 10:00 Emtricitab/Rilpiviri/Tenof Ala [Odefsey Tablet] PO QAM [facility] Morphine Sulfate 2 mg 09/17/18 19:57 09/18/18 03:39 Morphine IV 09/18/18 23:59 2 mg Q4H PRN Administration Pain, Moderate (4-6) Nitroglycerin 0.4 mg 09/17/18 20:03 Nitrostat SL Q5M PRN Chest Pain Ondansetron HCl 4 mg 09/17/18 19:57 Zofran IV Q8H PRN Nausea And Vomiting Oxycodone/Acetaminophen 1 tab 09/17/18 19:57 Percocet 5/325 PO Q6H PRN Pain, Moderate (4-6) Sodium Chloride 10 ml 09/17/18 22:00 09/17/18 22:45 Sodium Chloride Flush Syringe 10 Ml IV 10 ml BID [facility] Administration Sodium Chloride 10 ml 09/17/18 19:57 Sodium Chloride Flush Syringe 10 Ml IV PRN PRN LINE FLUSH
[2018-09-18] MEDS: BABY ASPIRIN PO SCH (11:28)
[2018-09-18] MEDS: HEPARIN SUB-Q SCH ×2 (11:29→21:47)
[2018-09-18] MEDS: ZESTRIL PO SCH (11:29)
[2018-09-18] MEDS: COLACE PO SCH ×2 (11:29→21:46)
[2018-09-18] MEDS: PERCOCET 5/325 PO PRN ×2 (11:29→19:08)
--- NOTE | 2018-09-18 11:59 | Consultation ---
History of Present Illness Consult date: 09/18/18 Requesting physician: CHEPE MANLEY Consult reason: chest pain History of present illness: The patient claims that for the past 2 days, he has been experiencing a sensation of sore throat and difficulty swallowing both solids and liquids. He states that he experiences chest pain with swallowing. X-ray of his neck reve aled a radio-opaque structure in the vallecula which was felt to represent a small bone. The patient was seen in the stress lab this morning after undergoing pharmacologic stress test with nuclear imaging. The nuclear scan is currently pending. Past History Past Medical History: acute [place], COPD, HIV/AIDS, hypertension, hyperlipidemia, other (schizophrenia) Past Surgical History: No surgical history Social history: smoking. denies: alcohol abuse Family history: denies: CAD Medications and Allergies Allergies Allergy/AdvReac Type Severity Reaction Status Date / Time No Known Allergies Allergy Verified 09/17/18 15:27 Home Medications Medication Instructions Recorded Confirmed Last Taken Type Emtricitab/Rilpiviri/Tenof Ala 1 each PO QAM 09/17/18 09/17/18 Unknown History [Odefsey Tablet] HYDROcodone/APAP 10-325 [[place] 1 each PO Q6H PRN 09/17/18 09/17/18 Unknown History 10/325] Ibuprofen [Motrin] 800 mg PO BID PRN 09/17/18 09/17/18 Unknown History Lisinopril [Zestril TAB] 40 mg PO BID 09/17/18 09/17/18 Unknown History Active Meds: Active Medications Acetaminophen (Tylenol) 650 mg PO Q4H PRN PRN Reason: Pain MILD(1-3)/Fever >100.5/HORNE Albuterol (Proventil) 2.5 mg IH Q4HRT PRN PRN Reason: Shortness Of Breath Albuterol/Ipratropium (Duoneb *Not For Prn Use*) 1 ampul [facility]IDRT [facility] Last Admin: 09/18/18 08:02 Dose: Not Given Documented by: Aspirin (Baby Aspirin) 81 mg PO QDAY [facility] Last Admin: 09/18/18 11:28 Dose: 81 mg Documented by: Atorvastatin Calcium (Lipitor) 40 mg PO QHS [facility] Last Admin: 09/17/18 22:45 Dose: 40 mg Documented by: Docusate Sodium (Colace) 100 mg PO BID [facility] Last Admin: 09/18/18 11:29 Dose: 100 mg Documented by: Heparin Sodium (Porcine) (Heparin) 5,000 unit SUB-Q Q12HR [facility] Last Admin: 09/18/18 11:29 Dose: 5,000 unit Documented by: Sodium Chloride (Nacl 0.9% 1000 Ml) 1,000 mls @ 42 mls/hr IV DIRECT [facility] Last Admin: 09/18/18 00:32 Dose: 42 mls/hr Documented by: Ceftriaxone Sodium (Rocephin/Ns 1 Gm/50 Ml) 1 gm in 50 mls @ 100 mls/hr IV Q24H [facility]; Protocol Last Admin: 09/17/18 22:45 Dose: 100 mls/hr Documented by: Lisinopril (Zestril) 40 mg PO BID [facility] Last Admin: 09/18/18 11:29 Dose: 40 mg Documented by: Miscellaneous Medication (Emtricitab/Rilpiviri/Tenof Ala [Odefsey Tablet]) 1 each PO QAM [facility] Morphine Sulfate (Morphine) 2 mg IV Q4H PRN PRN Reason: Pain, Moderate (4-6) Stop: 09/18/18 23:59 Last Admin: 09/18/18 03:39 Dose: 2 mg Documented by: Nicotine (Habitrol) 14 mg TD QDAY [facility] Nitroglycerin (Nitrostat) 0.4 mg SL Q5M PRN PRN Reason: Chest Pain Ondansetron HCl (Zofran) 4 mg IV Q8H PRN PRN Reason: Nausea And Vomiting Oxycodone/Acetaminophen (Percocet 5/325) 1 tab PO Q6H PRN PRN Reason: Pain, Moderate (4-6) Last Admin: 09/18/18 11:29 Dose: 1 tab Documented by: Sodium Chloride (Sodium Chloride Flush Syringe 10 Ml) 10 ml IV BID [facility] Last Admin: 09/17/18 22:45 Dose: 10 ml Documented by: Sodium Chloride (Sodium Chloride Flush Syringe 10 Ml) 10 ml IV PRN PRN PRN Reason: LINE FLUSH Review of Systems Constitutional: no fever, no chills Ears, nose, mouth and throat: dysphagia, sore throat, no ear pain, no ear discharge Cardiovascular: chest pain, no palpitations, no lightheadedness, no shortness of breath Respiratory: no cough, no hemoptysis, no shortness of breath Gastrointestinal: nausea, vomiting, no abdominal pain, no diarrhea, no constipation Genitourinary Male: no dysuria, no urinary frequency Rectal: no pain, no bleeding Musculoskeletal: neck pain, no neck stiffness, no myalgias Integumentary: no rash, no pruritis Neurological: no weakness, no parathesias, no numbness, no tingling, no headaches Endocrine: no cold intolerance, no heat intolerance Hematologic/Lymphatic: no easy bruising, no easy bleeding Allergic/Immunologic: no urticaria, no wheezing Physical Examination Vital Signs Last Vital Signs Temp 98.1 F 09/18/18 07:41 Pulse 73 09/18/18 11:29 Resp 18 09/18/18 07:41 BP 124/61 09/18/18 11:29 Pulse Ox 87 09/18/18 07:41 General appearance: no acute distress HEENT: Positive: EOMI, Normocephaly, Mucus Membranes Moist Neck: Positive: neck supple, trachea midline Cardiac: Positive: Reg Rate and Rhythm, S1/S2 Lungs: Positive: clear to auscultation Neuro: Positive: Grossly Intact Abdomen: Positive: Soft, Active Bowel Sounds. Negative: Tender Skin: Positive: Clear. Negative: Rash Musculoskeletal: Normal Range of Motion Extremities: Present: normal. Absent: edema Results 09/18/18 05:48 09/18/18 05:48 Lipids 09/18/18 Range/Units 05:48 Triglycerides 255 H (2-149) mg/dL Cholesterol 146 (50-199) mg/dL HDL Cholesterol 18 L (40-59) mg/dL Cholesterol/HDL Ratio 8.11 % CBC 09/17/18 09/18/18 Range/Units 16:48 05:48 WBC 7.6 6.5 (4.5-11.0) K/mm3 RBC 3.87 3.57 L (3.65-5.03) M/mm3 Hgb 13.0 12.0 (11.8-15.2) gm/dl Hct 37.7 34.7 L (35.5-45.6) % Plt Count 195 166 (140-440) K/mm3 Lymph # 1.3 (1.2-5.4) K/mm3 [place] # 1.0 H (0.0-0.8) K/mm3 Eos # 0.2 (0.0-0.4) K/mm3 Baso # 0.0 (0.0-0.1) K/mm3 Comprehensive Metabolic Panel 09/17/18 09/18/18 Range/Units 16:48 05:48 Sodium 133 L 136 L (137-145) mmol/L Potassium 3.7 3.5 L (3.6-5.0) mmol/L Chloride 99.7 105.8 (98-107) mmol/L Carbon Dioxide 16 L 16 L (22-30) mmol/L BUN 29 H 26 H (9-20) mg/dL Creatinine 3.6 H 3.0 H (0.8-1.5) mg/dL Glucose 95 85 (75-100) mg/dL Calcium 8.7 8.0 L (8.4-10.2) mg/dL - Imaging and Cardiology EKG: image reviewed EKG interpretations - Telemetry EKG Rhythm: Sinus Rhythm - EKG Sinus rhythms and dysrhythmias: sinus rhythm Assessment and Plan I will await nuclear imaging results for further recommendations. - Patient Problems (1) Atypical chest pain Current Visit: Yes Status: Acute (2) Dysphagia Current Visit: Yes Status: Acute (3) Hypertension Current Visit: Yes Status: Chronic Qualifiers: Hypertension type: essential hypertension Qualified Code(s): I10 - E ssential (primary) hypertension (4) COPD (chronic obstructive pulmonary disease) Current Visit: Yes Status: Chronic (5) HIV antibody positive Current Visit: Yes Status: Chronic (6) Schizophrenia Current Visit: Yes Status: Chronic
--- NOTE | 2018-09-18 12:27 | Consultation ---
History of Present Illness - History of Present Illness Thank you for the consultation ! Patient was evaluated today My assessment and plan are as follows; Acute on chronic renal failure in a patient who does have multiple risk factors for chronic kidney disease as well as its progression over time patient clinically appears to be prerenal given that he was taking BC powder, nonsteroidal drugs and was admitted with nausea vomiting poor by mouth intake for last 5-6 days, continue with hydration and close monitoring of renal functi on, patient has been educated to comply with treatment recommendation No indication for renal replacement therapy at this time Avoid nonsteroidal drugs altogether negative measures for pain control History of HIV: Check urine for protein creatinine ratio Admitted with chest pain left arm pain patients with chronic kidney disease are much higher risk for coronary artery disease and must be evaluated further Hyponatremia: Multifactorial in a patient who has been admitted with dehydration Mild hypokalemia: Monitor and follow discontinue lisinopril for now, may consider adding spironolactone High suspicion for secondary hypertension Metabolic acidosis and renal failure will change IV fluids to lactated Ringer's with potassium Hyperphosphatemia likely due to underlying chronic kidney disease, acute renal failure to monitor and follow No evidence of anemia at this time Patient was adequately counseled and educated regarding multiple renal related issues. Renal prognosis remains guarded at this time All renal related questions were answered and simple Filipino pertinent lab studies as well as imaging results were also discussed with patient We will continue to follow and make recommendations from renal standpoint. Author: Sebastian Saleh M.D. [facility], [address] [place] [id number] Tel; [phone] history of presenting illness Patient is a 62-year-old -[place]i male who has been admitted here since yesterday with complaints of chest pain, intermittent nausea vomiting and constipation for last 4 days with discomfort in the throat area for which workup is in progress.. Patient stated that she has been usin BCs as well as [id number] nonsteroidal drugs for pain control including ibuprofen, patient does have history of chronic kidney disease but during this admission his creatinine upon arrival was 3.6 which has come down to 3.0 he does not follow up with her house father but has multiple risk factors for underlying chronic kidney disease Denies any voiding problems Current allergies: None Past medical history: Acute RI COPD HIV Patient's a viral load was 0 Hypertension Schizophrenia Home medication present medication: Reviewed Social history: Reviewed Family history: Reviewed Review of systems positive for abdominal pain nausea vomiting constipation, no difficulty voiding Prior history of chronic kidney disease All other review of systems negative Physical examination Vitals: Reviewed General: No acute distress HEENT: Oral mucosa moist no pallor or icterus Neck: Supple without any JVD thyromegaly or nodular mass Chest: Clear to auscultation Heart: Regular rate and rhythm S1-S2 heard no S3-S4 Abdomen: Soft nontender, bowel sounds present no renal bruit no suprapubic masses no CVA tenderness noted Extremity: Minimal edema dry skin no peripheral cyanosis Endocrine: Thyroid not enlarged Psychiatric: No agitation and aggression noted Musculoskeletal: No joint effusion noted Labs and x-rays: Reviewed from this admission Past History Past Medical History: acute [place], COPD, HIV/AIDS, hypertension, hyperlipidemia, other (schizophrenia) Past Surgical History: No surgical history Social history: smoking. denies: alcohol abuse Family history: denies: CAD Medications and Allergies Allergies Allergy/AdvReac Type Severity Reaction Status Date / Time No Known Allergies Allergy Verified 09/17/18 15:27 Home Medications Medication Instructions Recorded Confirmed Last Taken Type Emtricitab/Rilpiviri/Tenof Ala 1 each PO QAM 09/17/18 09/17/18 Unknown History [Odefsey Tablet] HYDROcodone/APAP 10-325 [[place] 1 each PO Q6H PRN 09/17/18 09/17/18 Unknown History 10/325] Ibuprofen [Motrin] 800 mg PO BID PRN 09/17/18 09/17/18 Unknown History Lisinopril [Zestril TAB] 40 mg PO BID 09/17/18 09/17/18 Unknown History Active Meds: Active Medications Acetaminophen (Tylenol) 650 mg PO Q4H PRN PRN Reason: Pain MILD(1-3)/Fever >100.5/HORNE Albuterol (Proventil) 2.5 mg IH Q4HRT PRN PRN Reason: Shortness Of Breath Albuterol/Ipratropium (Duoneb *Not For Prn Use*) 1 ampul IH TIDRT [facility] Last Admin: 09/18/18 08:02 Dose: Not Given Documented by: Aspirin (Baby Aspirin) 81 mg PO QDAY [facility] Last Admin: 09/18/18 11:28 Dose: 81 mg Documented by: Atorvastatin Calcium (Lipitor) 40 mg PO QHS [facility] Last Admin: 09/17/18 22:45 Dose: 40 mg Documented by: Docusate Sodium (Colace) 100 mg PO BID [facility] Last Admin: 09/18/18 11:29 Dose: 100 mg Documented by: Heparin Sodium (Porcine) (Heparin) 5,000 unit SUB-Q Q12HR [facility] Last Admin: 09/18/18 11:29 Dose: 5,000 unit Documented by: Sodium Chloride (Nacl 0.9% 1000 Ml) 1,000 mls @ 42 mls/hr IV DIRECT [facility] Last Admin: 09/18/18 00:32 Dose: 42 mls/hr Documented by: Ceftriaxone Sodium (Rocephin/Ns 1 Gm/50 Ml) 1 gm in 50 mls @ 100 mls/hr IV Q24H [facility]; Protocol Last Admin: 09/17/18 22:45 Dose: 100 mls/hr Documented by: Lidocaine HCl (Magic Mouthwash) 15 ml PO TID [facility] Lisinopril (Zestril) 40 mg PO BID [facility] Last Admin: 09/18/18 11:29 Dose: 40 mg Documented by: Miscellaneous Medication (Emtricitab/Rilpiviri/Tenof Ala [Odefsey Tablet]) 1 each PO QAM [facility] Morphine Sulfate (Morphine) 2 mg IV Q4H PRN PRN Reason: Pain, Moderate (4-6) Stop: 09/18/18 23:59 Last Admin: 09/18/18 03:39 Dose: 2 mg Documented by: Nicotine (Habitrol) 14 mg TD QDAY [facility] Nitroglycerin (Nitrostat) 0.4 mg SL Q5M PRN PRN Reason: Chest Pain Ondansetron HCl (Zofran) 4 mg IV Q8H PRN PRN Reason: Nausea And Vomiting Oxycodone/Acetaminophen (Percocet 5/325) 1 tab PO Q6H PRN PRN Reason: Pain, Moderate (4-6) Last Admin: 09/18/18 11:29 Dose: 1 tab Documented by: Sodium Chloride (Sodium Chloride Flush Syringe 10 Ml) 10 ml IV BID [facility] Last Admin: 09/17/18 22:45 Dose: 10 ml Documented by: Sodium Chloride (Sodium Chloride Flush Syringe 10 Ml) 10 ml IV PRN PRN PRN Reason: LINE FLUSH Exam - Vital Signs Vital signs: Vital Signs Temp Pulse Resp BP Pulse Ox 97.9 F 96 H 16 101/53 99 09/17/18 16:34 09/17/18 16:34 09/17/18 16:34 09/17/18 16:34 09/17/18 16:34 Results - Lab Results 09/18/18 05:48 09/18/18 05:48 Most recent lab results Calcium 8.0 mg/dL (8.4-10.2) L 09/18/18 05:48 Phosphorus 4.90 mg/dL (2.5-4.5) H 09/17/18 17:34 Magnesium 2.10 mg/dL (1.7-2.3) 09/17/18 17:34
--- NOTE | 2018-09-18 12:44 | Consultation ---
History of Present Illness - Reason for Consult Consult date: 09/18/18 UTI, HIV Requesting physician: KILO QUIROZ - History of Present Illness The patient is a 61-year-old male with COPD, coronary artery disease, HIV disease presented to the emergency room yesterday with complaints of painful swallowing. He felt like something was stuck in his throat. The difficulty and pain with swallowing his to both liquids and solids. He has a long-standing history of HIV, takes Odefsey, follows up with an ID physician at [facility]. His UA on admission showed some pyuria and hence infectious diseases was consulted to evaluate for possibility of UTI. Denies any fever or chills. Denies any diarrhea or abdominal pain. Denies any urinary burning. Review of Systems: General: no fevers,chills or rigors HEENT: no new visual disturbance Respiratory: No cough, sputum, hemoptysis or shortness of breath Cardiovascular: No chest pain, syncope Gastrointestinal: No nausea or diarrhea. No abdominal pain Genitourinary: No dysuria or hematuria Musculoskeletal: No new or worsening neck pain or back pain Neurologic: No headaches, seizures Hematologic: No easy bruising or bleeding Endocrine: No night sweats or acute weight loss Skin: negative for rash, jaundice Psychiatric: No suicidal or homicidal ideation Past History Past Medical History: acute [place], COPD, HIV/AIDS, hypertension, hyperlipidemia, other (schizophrenia) Past Surgical History: No surgical history Social history: smoking. denies: alcohol abuse Family history: denies: CAD Medications and Allergies Allergies Allergy/AdvReac Type Severity Reaction Status Date / Time No Known Allergies Allergy Verified 09/17/18 15:27 Home Medications Medication Instructions Recorded Confirmed Last Taken Type Emtricitab/Rilpiviri/Tenof Ala 1 each PO QAM 09/17/18 09/17/18 Unknown History [Odefsey Tablet] HYDROcodone/APAP 10-325 [[place] 1 each PO Q6H PRN 09/17/18 09/17/18 Unknown History 10/325] Ibuprofen [Motrin] 800 mg PO BID PRN 09/17/18 09/17/18 Unknown History Lisinopril [Zestril TAB] 40 mg PO BID 09/17/18 09/17/18 Unknown History Active Meds: Active Medications Acetaminophen (Tylenol) 650 mg PO Q4H PRN PRN Reason: Pain MILD(1-3)/Fever >100.5/HORNE Albuterol (Proventil) 2.5 mg IH Q4HRT PRN PRN Reason: Shortness Of Breath Albuterol/Ipratropium (Duoneb *Not For Prn Use*) 1 ampul IH TIDRT [facility] Last Admin: 09/18/18 08:02 Dose: Not Given Documented by: Aspirin (Baby Aspirin) 81 mg PO QDAY [facility] Last Admin: 09/18/18 11:28 Dose: 81 mg Documented by: Atorvastatin Calcium (Lipitor) 40 mg PO QHS [facility] Last Admin: 09/17/18 22:45 Dose: 40 mg Documented by: Docusate Sodium (Colace) 100 mg PO BID [facility] Last Admin: 09/18/18 11:29 Dose: 100 mg Documented by: Heparin Sodium (Porcine) (Heparin) 5,000 unit SUB-Q Q12HR [facility] Last Admin: 09/18/18 11:29 Dose: 5,000 unit Documented by: Sodium Chloride (Nacl 0.9% 1000 Ml) 1,000 mls @ 42 mls/hr IV DIRECT [facility] Last Admin: 09/18/18 00:32 Dose: 42 mls/hr Documented by: Ceftriaxone Sodium (Rocephin/Ns 1 Gm/50 Ml) 1 gm in 50 mls @ 100 mls/hr IV Q24H [facility]; Protocol Last Admin: 09/17/18 22:45 Dose: 100 mls/hr Documented by: Lidocaine HCl (Magic Mouthwash) 15 ml PO TID [facility] Lisinopril (Zestril) 40 mg PO BID [facility] Last Admin: 09/18/18 11:29 Dose: 40 mg Documented by: Miscellaneous Medication (Emtricitab/Rilpiviri/Tenof Ala [Odefsey Tablet]) 1 each PO QAM [facility] Morphine Sulfate (Morphine) 2 mg IV Q4H PRN PRN Reason: Pain, Moderate (4-6) Stop: 09/18/18 23:59 Last Admin: 09/18/18 03:39 Dose: 2 mg Documented by: Nicotine (Habitrol) 14 mg TD QDAY [facility] Nitroglycerin (Nitrostat) 0.4 mg SL Q5M PRN PRN Reason: Chest Pain Ondansetron HCl (Zofran) 4 mg IV Q8H PRN PRN Reason: Nausea And Vomiting Oxycodone/Acetaminophen (Percocet 5/325) 1 tab PO Q6H PRN PRN Reason: Pain, Moderate (4-6) Last Admin: 09/18/18 11:29 Dose: 1 tab Documented by: Sodium Chloride (Sodium Chloride Flush Syringe 10 Ml) 10 ml IV BID [facility] Last Admin: 09/17/18 22:45 Dose: 10 ml Documented by: Sodium Chloride (Sodium Chloride Flush Syringe 10 Ml) 10 ml IV PRN PRN PRN Reason: LINE FLUSH Physical Examination - Physical Exam Narrative exam: Physical Exam: Constitutional: Alert, cooperative. No acute distress Head, Ears, Nose: Normocephalic, atraumatic. External ears, nose normal Eyes: Conjunctivae/corneas clear. No icterus. No ptosis. Neck: Supple, no meningeal signs Oral: no thrush Cardiovascular: S1, S2 normal. Respiratory: Good air entry, clear to auscultation bilaterally GI: Soft, non-tender; bowel sounds normal. No peritoneal signs. No CVA tenderness. No suprapubic tenderness. Musculoskeletal: No pedal edema, no cyanosis. Skin: No rash or abscess Hem/Lymphatic: No palpable cervical or supraclavicular nodes. No lymphangitis Psych: Mood ok. Affect normal Neurological: Awake, alert, oriented. No gross abnormality - Constitutional Vitals: Vital Signs Temp Pulse Resp BP Pulse Ox 98.1 F 73 18 124/61 87 09/18/18 07:41 09/18/18 11:29 09/18/18 07:41 09/18/18 11:29 09/18/18 07:41 Temperature -Last 24 Hours Temperature 98.1 F Temperature 98.5 F Temperature 97.7 F Temperature 98.3 F Temperature 98.7 F Temperature 97.9 F Results - Labs CBC & Chem 7: 09/18/18 05:48 09/18/18 05:48 Labs: Abnormal lab results 09/17/18 09/17/18 09/17/18 Range/Units 16:48 16:48 17:34 RBC (3.65-5.03) M/mm3 Hct (35.5-45.6) % MCV 98 H (84-94) fl MCH 34 H (28-32) pg MCHC (32-34) % [place] % (Auto) (0.0-7.3) % [place] # (0.0-0.8) K/mm3 Sodium 133 L (137-145) mmol/L Potassium (3.6-5.0) mmol/L Carbon Dioxide 16 L (22-30) mmol/L BUN 29 H (9-20) mg/dL Creatinine 3.6 H (0.8-1.5) mg/dL Calcium (8.4-10.2) mg/dL Phosphorus 4.90 H (2.5-4.5) mg/dL Triglycerides (2-149) mg/dL HDL Cholesterol (40-59) mg/dL Urine WBC (Auto) (0.0-6.0) /HPF 09/17/18 09/18/18 09/18/18 Range/Units 18:00 05:48 05:48 RBC 3.57 L (3.65-5.03) M/mm3 Hct 34.7 L (35.5-45.6) % MCV 97 H (84-94) fl MCH 34 H (28-32) pg MCHC 35 H (32-34) % [place] % (Auto) 14.9 H (0.0-7.3) % [place] # 1.0 H (0.0-0.8) K/mm3 Sodium 136 L (137-145) mmol/L Potassium 3.5 L (3.6-5.0) mmol/L Carbon Dioxide 16 L (22-30) mmol/L BUN 26 H (9-20) mg/dL Creatinine 3.0 H (0.8-1.5) mg/dL Calcium 8.0 L (8.4-10.2) mg/dL Phosphorus (2.5-4.5) mg/dL Triglycerides 255 H (2-149) mg/dL HDL Cholesterol 18 L (40-59) mg/dL Urine WBC (Auto) 12.0 H (0.0-6.0) /HPF - Imaging and Cardiology Chest x-ray: report reviewed, image reviewed (no pneumonia) Assessment and Plan Cultures: 09/17/2018 Blood culture in progress A/P: 61-year-old male with COPD, coronary artery disease, HIV disease admitted with dysphagia: 1) HIV: well controlled, on Odefsey. Per history, viral load undetectable and good CD4 count. Follows up at [facility]. Odefsey is non formulary, patient states he can have someone bring it in. 2) ?UTI: UA showed 12 WBC. No leucocytosis, no fever. Patient has no urinary symptoms. When questioned the patient, he was not instructed to provide a mid- stream sample. No abx needed. 3) Dysphagia / sore throat: Group A Strep rapid negative. 4) TUAN: nephrology consulted. Recs: - no UTI, no abx needed - continue Odefsey when available, but it is non formulary, patient states he can have someone bring it in. (follow up renal function, Odefsey does not need renal adjustment till CrCL is <30) Lacey Eastman MD, FACP [facility] C: [phone] O: [phone] F: [phone]
[2018-09-18] MEDS ORDERED: APRESOLINE IV PRN (15:56)
[2018-09-18] MEDS: SODIUM CHLORIDE FLUSH SYRINGE 10 ML IV SCH ×2 (16:04→22:19)
[2018-09-18] MEDS: MAGIC MOUTHWASH PO SCH ×2 (16:05→21:47)
[2018-09-18] MEDS: KCL 20 MEQ in LACTATED RINGERS 1,000 ML IV SCH (21:53)
--- NOTE | 2018-09-18 22:09 | Treadmill Report ---
LEXISCAN STRESS TEST REPORT REASON FOR STUDY: Chest pain. STRESS TEST PROTOCOL: The patient received 0.4 mg of Lexiscan intravenously over 10 seconds. Tc-99m Tetrofosmin was subsequently injected. Baseline ECG, normal sinus rhythm. Lexiscan ECG, no ischemic changes. No chest pain. No arrhythmias. IMPRESSION: Electrocardiographically negative stress test. Nuclear imaging report to follow. JOB# [id number] ELADIO/NTS
[2018-09-19] MEDS: PERCOCET 5/325 PO PRN ×5 (00:08→21:26)
--- NOTE | 2018-09-19 00:35 | Treadmill Report ---
THALLIUM REPORT REASON FOR STUDY: Chest pain. IMAGING PROTOCOL: The patient received 10 mCi of technetium-99 Tetrofosmin for rest imaging and 28 mCi of technetium-99m Tetrofosmin for stress imaging. Imaging for all procedures was completed 30-90 minutes following the initial injection of Technetium 99m Tetrofosmin. SPECT imaging in the 180 degree arc was performed in the right anterior oblique projection. Computerized reconstruction of the images was performed for analysis. NUCLEAR IMAGING RESULTS: Normal left ventricular cavity size with no change from stress to rest. Distribution of radionuclide within the left ventricle revealed a medium-sized area of photo-induction involving the inferior and inferoapical region. The degree of photo-induction is moderate. Rest imaging does not show any significant improvement in this defect. There is also a small area of photo-induction involving the inferolateral wall. The degree of photo-induction is moderate. Rest imaging does not show any significant improvement in this defect. In addition, there is a small area of photo-induction involving the anteroseptal wall. The degree of photo-induction is moderate. Rest imaging does not show any significant improvement in this defect. Gated SPECT imaging revealed normal global LV systolic function with no significant wall motion abnormalities. The calculated left ventricular ejection fraction is 56%. IMPRESSION: Medium-size fixed inferior and inferoapical defect. Small fixed inferolateral defect. Small fixed anteroseptal defect. Normal global left ventricular systolic function with no significant wall motion abnormalities. Ejection fraction 56%. These findings suggest prior infarction involving all 3 coronary artery territories. However, in the absence of significant wall motion abnormalities, the defects noted in this patient may be artifactual. No evidence of significant stress-induced ischemia. [facility]# [id number] ELADIO/GABO ADDISON
[2018-09-19 06:04] LABS: Basophils % (Auto) 0.5 % (0.0-1.8); Eosinophils # (Auto) 0.2 K/mm3 (0.0-0.4); Eosinophils % (Auto) 3.1 % (0.0-4.3); Hematocrit 34.6 % (35.5-45.6); Hemoglobin 11.7 gm/dl (11.8-15.2); Lymphocytes # (Auto) 1.7 K/mm3 (1.2-5.4); Lymphocytes % (Auto) 33.2 % (13.4-35.0); Mean Corpuscular HGB Conc 34 % (32-34); Mean Corpuscular Volume 98 fl (84-94); Monocytes # (Auto) 0.8 K/mm3 (0.0-0.8); Monocytes % (Auto) 15.5 % (0.0-7.3); Platelet Count 166 K/mm3 (140-440); Red Blood Count 3.52 M/mm3 (3.65-5.03); Red Cell Distribution Width 14.2 % (13.2-15.2)
[2018-09-19 06:31] LABS: Albumin 3.2 g/dL (3.9-5); Calcium 8.4 mg/dL (8.4-10.2)
[2018-09-19] MEDS: DUONEB *Not for PRN Use IH SCH ×3 (08:21→20:03)
[2018-09-19] MEDS: COLACE PO SCH ×2 (09:06→21:26)
[2018-09-19] MEDS: BABY ASPIRIN PO SCH (09:06)
[2018-09-19] MEDS: HABITROL TD SCH (09:06)
--- NOTE | 2018-09-19 09:06 | Progress Note ---
Subjective Interval history: Patient was seen today for follow-up of multiple renal related issues No complaints of any chest pain pressure or shortness of breath feeling better No nausea or vomiting Interdisciplinary notes that also reviewed Events of 24 hours vitals labs intake output medications were reviewed Past medical history: Reviewed Family history: Reviewed Social history: Reviewed Allergies: Reviewed Physical examination: Vitals: Reviewed HEENT: No pallor or icterus oral mucosa moist Neck: Supple no JVD no thyromegaly Chest: Bilateral clear to auscultation anteriorly Heart: Regular rate and rhythm S1-S2 heard no S3-S4 Abdomen: Soft nontender no voluntary guarding rigidity rebound Extremity: Dry skin less than 1+ peripheral edema Psychiatric: No evidence of agitation and aggression noted Dermatology: No petechial rashes Labs and x-rays: Reviewed from today Assessment and plan Acute kidney injury: Improving renal function and no evidence to suggest acute tubular necrosis mostly appeared to be volume depleted Accelerated hypertension with hypokalemia likely secondary hypertension we'll consider adding Aldactone with caution discussed with patient Would like to discontinue IV fluid tomorrow, depending on hydration status Patient will need to make an appointment for follow-up in the office next week , he is agreeable to follow Electrolyte imbalances: To monitor and follow Follow pending ultrasonogram results He has been adequately counseled and educated regarding all her renal-related issues Patient was adequately counseled and educated regarding all the renal related issues Laboratory studies, pertinent for discussed with patient more than 35 minutes was spent in direct patient care today All questions were answered and simple Chadian We'll continue to follow and make recommendation for renal standpoint Objective - Vital Signs Vital signs: Vital Signs - 12hr 09/18/18 09/19/18 09/19/18 23:07 03:49 07:38 Temperature 98.0 F 98.0 F 98.1 F Pulse Rate 70 63 71 Pulse Rate [ Throughout] Respiratory 20 20 18 Rate Respiratory Rate [ Throughout] Blood Pressure 140/69 148/73 152/85 O2 Sat by Pulse 100 99 89 Oximetry 09/19/18 09/19/18 08:21 08:34 Temperature Pulse Rate Pulse Rate [ 68 69 Throughout] Respiratory Rate Respiratory 18 18 Rate [ Throughout] Blood Pressure O2 Sat by Pulse Oximetry - Lab 09/19/18 05:29 09/20/18 10:59 Most recent lab results Calcium 8.4 mg/dL (8.4-10.2) 09/19/18 05:29 Phosphorus 4.90 mg/dL (2.5-4.5) H 09/17/18 17:34 Magnesium 2.10 mg/dL (1.7-2.3) 09/17/18 17:34 Medications & Allergies - Medications Allergies/Adverse Reactions: Allergies Lettuce Allergy (Uncoded 09/18/18 17:27) Unknown Home Medications: Home Medications Medication Instructions Recorded Confirmed Last Taken Type Emtricitab/Rilpiviri/Tenof Ala 1 each PO QAM 09/17/18 09/17/18 Unknown History [Odefsey Tablet] HYDROcodone/APAP 10-325 [[place] 1 each PO Q6H PRN 09/17/18 09/17/18 Unknown History 10/325] Ibuprofen [Motrin] 800 mg PO BID PRN 09/17/18 09/17/18 Unknown History Lisinopril [Zestril TAB] 40 mg PO BID 09/17/18 09/17/18 Unknown History Active Medications: Generic Name Dose Route Start Last Admin Trade Name Freq PRN Reason Stop Dose Admin Acetaminophen 650 mg 09/17/18 19:57 Tylenol PO Q4H PRN Pain MILD(1-3)/Fever >100.5/HORNE Albuterol 2.5 mg 09/17/18 19:57 Proventil IH Q4HRT PRN Shortness Of Breath Albuterol/Ipratropium 1 ampul 09/18/18 08:00 09/19/18 08:21 Duoneb *Not For Prn Use* IH 1 ampul TIDRT [facility] Administration Aspirin 81 mg 09/18/18 10:00 09/18/18 11:28 Baby Aspirin PO 81 mg QDAY [facility] Administration Atorvastatin Calcium 40 mg 09/17/18 22:00 09/18/18 21:46 Lipitor PO 40 mg QHS [facility] Administration Docusate Sodium 100 mg 09/17/18 22:00 09/18/18 21:46 Colace PO 100 mg BID [facility] Administration Heparin Sodium (Porcine) 5,000 unit 09/17/18 22:00 09/18/18 21:47 Heparin SUB-Q 5,000 unit Q12HR [facility] Administration Hydralazine HCl 20 mg 09/18/18 15:56 Apresoline IV Q4H PRN HTN SYS=OR>170 Potassium Chloride 20 meq/ 1,010 mls @ 125 mls/hr 09/18/18 16:00 09/18/18 21:53 Lactated Ringer's IV 125 mls/hr DIRECT [facility] Administration Lidocaine HCl 15 ml 09/18/18 14:00 09/18/18 21:47 Magic Mouthwash PO 15 ml TID [facility] Administration Miscellaneous Medication 1 each 09/18/18 10:00 Emtricitab/Rilpiviri/Tenof Ala [Odefsey Tablet] PO QAM [facility] Nicotine 14 mg 09/19/18 10:00 Habitrol TD QDAY [facility] Nitroglycerin 0.4 mg 09/17/18 20:03 Nitrostat SL Q5M PRN Chest Pain Ondansetron HCl 4 mg 09/17/18 19:57 Zofran IV Q8H PRN Nausea And Vomiting Oxycodone/Acetaminophen 1 tab 09/17/18 19:57 09/19/18 08:55 Percocet 5/325 PO 1 tab Q6H PRN Administration Pain, Moderate (4-6) Sodium Chloride 10 ml 09/17/18 22:00 09/18/18 22:19 Sodium Chloride Flush Syringe 10 Ml IV 10 ml BID [facility] Administration Sodium Chloride 10 ml 09/17/18 19:57 Sodium Chloride Flush Syringe 10 Ml IV PRN PRN LINE FLUSH
[2018-09-19] MEDS: MAGIC MOUTHWASH PO SCH ×3 (09:07→21:25)
[2018-09-19] MEDS: HEPARIN SUB-Q SCH ×2 (09:08→21:26)
--- NOTE | 2018-09-19 09:18 | Progress Note ---
Assessment and Plan Assessment and plan: 61-year-old -[place] male with history of COPD, ID, retention, HIV who presents [facility] with complaints of intermittent left-sided chest pain with radiation to left arm and the discomfort for the past 4 days. CXR showed hyperexpanded lungs chest of COPD. No acute cardiopulmonary abnormalities noted. Neck x-ray was unrevealing for acute abnormalities. He was found to be mildly hyponatremic with Na of 133. Elevated urine WBC at 12.0. Will admit to telemetry for further evaluation and treatment. --Hyponatremia;, continue replacement therapy with normal saline Closely monitor electrolytes --Acute on chronic renal failure; vasomotor nephropathy Closely monitor renal function, avoid nephrotoxins, nephrology following --HIV; continue current management per ID Patient follows with [facility], --Dysphagia; odynophagia, supportive care, Magic mouthwash swish and swallow Diet as tolerated, GI consult improvement Also consider Belen esophagitis --Severe malnutrition; nutrition supplements and supportive care Nutrition consult as needed --DVT prophylaxis; Lovenox Monitor closely and adjust management as needed History Interval history: Patient seen and examined medical records reviewed Patient still complains of dysphagia odynophagia We'll consult GI Vital signs noted Hospitalist Physical - Constitutional Vitals: Temp Pulse Resp BP Pulse Ox 98.1 F 69 18 152/85 89 09/19/18 07:38 09/19/18 08:34 09/19/18 08:34 09/19/18 07:38 09/19/18 07:38 General appearance: Present: no acute distress, cachectic, disheveled - EENT Eyes: Present: PERRL, EOM intact - Neck Neck: Present: supple, normal ROM - Respiratory Respiratory effort: normal Respiratory: bilateral: diminished, negative: rales, rhonchi, wheezing - Cardiovascular Rhythm: regular Heart Sounds: Present: S1 & S2 - Extremities Extremities: no ischemia, No edema - Abdominal General gastrointestinal: soft, non-tender, non-distended, normal bowel sounds - Integumentary Integumentary: Present: clear, warm - Psychiatric Psychiatric: appropriate mood/affect, cooperative - Neurologic Neurologic: moves all extremities Results - Labs CBC & Chem 7: 09/19/18 05:29 09/19/18 05:29 Labs: Laboratory Last Values WBC 5.2 K/mm3 (4.5-11.0) 07/18/19 05:29 RBC 3.52 M/mm3 (3.65-5.03) L 09/19/18 05:29 Hgb 11.7 gm/dl (11.8-15.2) L 09/19/18 05:29 Hct 34.6 % (35.5-45.6) L 09/19/18 05:29 MCV 98 fl (84-94) H 09/19/18 05:29 MCH 33 pg (28-32) H 09/19/18 05:29 MCHC 34 % (32-34) 09/19/18 05:29 RDW 14.2 % (13.2-15.2) 09/19/18 05:29 Plt Count 166 K/mm3 (140-440) 09/19/18 05:29 Lymph % (Auto) 33.2 % (13.4-35.0) 09/19/18 05:29 [place] % (Auto) 15.5 % (0.0-7.3) H 09/19/18 05:29 Eos % (Auto) 3.1 % (0.0-4.3) 09/19/18 05:29 Baso % (Auto) 0.5 % (0.0-1.8) 09/19/18 05:29 Lymph # 1.7 K/mm3 (1.2-5.4) 09/19/18 05:29 [place] # 0.8 K/mm3 (0.0-0.8) 09/19/18 05:29 Eos # 0.2 K/mm3 (0.0-0.4) 09/19/18 05:29 Baso # 0.0 K/mm3 (0.0-0.1) 09/19/18 05:29 Seg Neutrophils % 47.7 % (40.0-70.0) 09/19/18 05:29 Seg Neutrophils # 2.5 K/mm3 (1.8-7.7) 09/19/18 05:29 Sodium 141 mmol/L (137-145) 09/19/18 05:29 Potassium 3.2 mmol/L (3.6-5.0) L 09/19/18 05:29 Chloride 110.7 mmol/L (98-107) H 09/19/18 05:29 Carbon Dioxide 17 mmol/L (22-30) L 09/19/18 05:29 17 mmol/L 09/19/18 05:29 BUN 23 mg/dL (9-20) H 09/19/18 05:29 1.9 mg/dL (0.8-1.5) H 09/19/18 05:29 Estimated GFR 44 ml/min 09/19/18 05:29 12 % 09/19/18 05:29 Glucose 81 mg/dL (75-100) 09/19/18 05:29 8.1 mg/dL (3.5-7.6) H 09/18/18 05:04 Calcium 8.4 mg/dL (8.4-10.2) 09/19/18 05:29 Phosphorus 4.90 mg/dL (2.5-4.5) H 09/17/18 17:34 Magnesium 2.10 mg/dL (1.7-2.3) 09/17/18 17:34 0.20 mg/dL (0.1-1.2) 09/19/18 05:29 AST 11 units/L (5-40) 09/19/18 05:29 ALT 6 units/L (7-56) L 09/19/18 05:29 105 units/L (35-129) 09/19/18 05:29 < 0.010 ng/mL (0.00-0.029) 09/18/18 00:44 NT-Pro-B Natriuret Pep 636.1 pg/mL (0-900) 09/17/18 17:34 6.8 g/dL (6.3-8.2) 09/19/18 05:29 3.2 g/dL (3.9-5) L 09/19/18 05:29 0.9 % 09/19/18 05:29 Triglycerides 255 mg/dL (2-149) H 09/18/18 05:48 Cholesterol 146 mg/dL (50-199) 09/18/18 05:48 76 mg/dL (50-130) 09/18/18 05:48 18 mg/dL (40-59) L 09/18/18 05:48 8.11 % 09/18/18 05:48 Yellow (Yellow) 09/17/18 18:00 Slightly-cloudy (Clear) 09/17/18 18:00 5.0 (5.0-7.0) 09/17/18 18:00 Ur Specific [place] 1.020 (1.003-1.030) 09/17/18 18:00 100 mg/dl mg/dL (Negative) 09/17/18 18:00 Neg mg/dL (Negative) 09/17/18 18:00 Neg mg/dL (Negative) 09/17/18 18:00 Neg (Negative) 09/17/18 18:00 Neg (Negative) 09/17/18 18:00 Neg (Negative) 09/17/18 18:00 < 2.0 mg/dL (<2.0) 09/17/18 18:00 Ur Leukocyte Esterase Neg (Negative) 09/17/18 18:00 12.0 /HPF (0.0-6.0) H 09/17/18 18:00 1.0 /HPF (0.0-6.0) 09/17/18 18:00 Group A Strep Rapid Negative (Negative) 09/17/18 Unknown Active Medications - Current Medications Current Medications: Generic Name Dose Route Start Last Admin Trade Name Freq PRN Reason Stop Dose Admin Acetaminophen 650 mg 09/17/18 19:57 Tylenol PO Q4H PRN Pain MILD(1-3)/Fever >100.5/HORNE Albuterol 2.5 mg 09/17/18 19:57 Proventil IH Q4HRT PRN Shortness Of Breath Albuterol/Ipratropium 1 ampul 09/18/18 08:00 09/19/18 08:21 Duoneb *Not For Prn Use* IH 1 ampul TIDRT SKY Administration Aspirin 81 mg 09/18/18 10:00 09/19/18 09:06 Baby Aspirin PO 81 mg QDAY SKY Administration Atorvastatin Calcium 40 mg 09/17/18 22:00 09/18/18 21:46 Lipitor PO 40 mg QHS SKY Administration Docusate Sodium 100 mg 09/17/18 22:00 09/19/18 09:06 Colace PO 100 mg BID SKY Administration Heparin Sodium (Porcine) 5,000 unit 09/17/18 22:00 09/19/18 09:08 Heparin SUB-Q 5,000 unit Q12HR SKY Administration Hydralazine HCl 20 mg 09/18/18 15:56 Apresoline IV Q4H PRN HTN SYS=OR>170 Potassium Chloride 20 meq/ 1,010 mls @ 125 mls/hr 09/18/18 16:00 09/18/18 21:53 Lactated Ringer's IV 125 mls/hr DIRECT SKY Administration Lidocaine HCl 15 ml 09/18/18 14:00 09/19/18 09:07 Magic Mouthwash PO 15 ml TID SKY Administration Miscellaneous Medication 1 each 09/18/18 10:00 Emtricitab/Rilpiviri/Tenof Ala [Odefsey Tablet] PO QAM SKY Nicotine 14 mg 09/19/18 10:00 09/19/18 09:06 Habitrol TD 14 mg QDAY SKY Administration Nitroglycerin 0.4 mg 09/17/18 20:03 Nitrostat SL Q5M PRN Chest Pain Ondansetron HCl 4 mg 09/17/18 19:57 Zofran IV Q8H PRN Nausea And Vomiting Oxycodone/Acetaminophen 1 tab 09/17/18 19:57 09/19/18 08:55 Percocet 5/325 PO 1 tab Q6H PRN Administration Pain, Moderate (4-6) Sodium Chloride 10 ml 09/17/18 22:00 09/18/18 22:19 Sodium Chloride Flush Syringe 10 Ml IV 10 ml BID SKY Administration Sodium Chloride 10 ml 09/17/18 19:57 Sodium Chloride Flush Syringe 10 Ml IV PRN PRN LINE FLUSH Spironolactone 25 mg 09/19/18 10:00 Aldactone PO QDAY [facility] Nutrition/Malnutrition Assess - Dietary Evaluation Nutrition/Malnutrition Findings: Nutrition Notes Start: 09/18/18 17:16 Freq: Status: Active Protocol: Document 09/18/18 17:16 RM (Rec: 09/18/18 17:26 RM [id number]) Nutrition Notes Need for Assessment 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 NPO in place earlier today. Cardiac diet ordered later today. 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 Also stated that at home he drinks Ensure TID. Stated that his appetite is fair now. Noted lunch at bedside w/25% eaten. Denied chewing difficulty. Stated UBW is 134 lbs but unsure how long ago he weighed that. Noted temporal wasting. Percent of energy/protein needs met: 23%/31% Burn Absent Trauma Absent #1 Nutrition Diagnosis Malnutrition Etiology HIV, Schizophrenia As Evidenced by Signs and Symptoms temporal wasting, BMI 17 Is patient on ventilator? No Is Patient Ambulatory and/or Out of Bed Yes REE-([place]-St. Jeor-ambulatory/OOB) [ 1820.000 NUTR.MSJOOB] Kcal/Kg value to use for calculation 41 Approximate Energy Requirements Using 2325 kcal/Kg Calculation Used for Recommendations Kcal/kg Additional Notes Protein Needs: 68-85g (1.2-1. 5g/kg) Fluid Needs: 1 ml/kcal Nutrition Intervention Change Diet Order: Continue current Add Supplement/Snack (indicate name/kcal Ensure Enlive [place] TID /protein ) Provides kCal: 1,050 Provides Protein (gm) 60 Goal #1 Meet at least 75% of calorie and protein needs via PO and ONS intakes Goal #2 Wt gain/mainetenance Anticipated Discharge Needs: Cardiac diet Follow-Up By: 09/20/18 Additional Comments Follow for PO and ONS intakes
[2018-09-19] MEDS: KCL 20 MEQ in LACTATED RINGERS 1,000 ML IV SCH ×2 (09:38→17:14)
[2018-09-19] MEDS: SODIUM CHLORIDE FLUSH SYRINGE 10 ML IV SCH ×2 (11:00→21:27)
--- NOTE | 2018-09-19 11:58 | Ultrasound Report ---
ULTRASOUND RENAL INDICATION / CLINICAL INFORMATION: Acute kidney injury. COMPARISON: None available. FINDINGS: RIGHT KIDNEY: Length = 10.4 cm. [normal > 9 cm] - Parenchymal Thickness = 1.2 cm. [normal > 1.5 cm] - Echogenicity: Slightly increased - Hydronephrosis: None. - Cyst or mass: No significant abnormality. - Stones: None seen. LEFT KIDNEY: Length = 10.6 cm. [normal > 9 cm] - Parenchymal Thickness = 1.7 cm. [normal > 1.5 cm] - Echogenicity: Widely increased - Hydronephrosis: None. - Cyst or mass: A 6 mm cyst is noted at the superior pole of the left kidney. - Stones: None seen. URINARY BLADDER: The bladder is partially distended. There appears to be a focal area of bladder wall thickening along the left lateral wall measuring 1.8 x 0.6 x 0.8 cm. FREE FLUID: None. ADDITIONAL FINDINGS: Cholelithiasis IMPRESSION: Nonspecific renal parenchymal disease. No obstructive uropathy. 6 mm left renal cyst. Focal area of thickening along the left lateral wall of the bladder which could represent a small mas s. Consider further evaluation with CT with contrast. Cholelithiasis. Signer Name: Raúl Nielsen Jr, MD Signed: 09/19/2018 11:54 AM Workstation Name: [id number]
--- NOTE | 2018-09-19 13:58 | Consultation ---
History of Present Illness - Reason for Consult Consult date: 09/19/18 - History of Present Illness In the ED, temp 103.1, HR 142, R20, BP 99, BP 124/80. WBC 7.5. Hg 9.6. Plat 269. Creat 1.2. UA with 156 wbc, large LE. Blood cultures 07/24/2018 GNR 1 of 4. Urine culture 07/24/2018 10-100K multiple sp. CXR negative. CT chest showed atelectasis versus possible small infiltrate in posterior segment left lower lobe. Review of Systems: General: no fever, chills, no malaise Cutaneous: no rash, pruritus Head: no headaches or injury Eyes: no changes in vision, eye pain, double vision Ears: no ear pain, ear discharge, ringing or hearing loss Nose: no nose bleeding, stuffiness Mouth & throat: no bleeding gums, no horseness, no dental problems, or swollen g lands Neck: no pain, node enlargement/lumps, tyroid enlargement or tenderness Respiratory: no cough, wheezing, sputum, hemoptysis, pleuritic chest pain Cardiovascular: no chest pain, leg edema, cyanosis, GAFFNEY, orthopnea Musculoskeletal: no edema Gastrointestinal: +nausea, vomiting, no hematemesis, diarrhea, constipation, melena, bright red blood in stools, fecal incontinence, jaundice Genitourinary/Reproductive: + frequent urination, dysuria, hematuria, incontinence Neurogical: no seizures, no headaches, no weakness, no paresthesias, no loss of speech or vision; no memory loss, no vertigo, no tremors, no numbness Psychiatric: stable mood; no excessive anxiety, sadness or moodiness General appearance: Alert in NAD Eyes: anicteric sclerae, moist conjunctivae; no lid-lag; PERRLA HENT: Atraumatic; oropharynx clear with moist mucous membranes and no mucosal ulcerations/no oral thrush; normal hard and soft palate. Normal external ears. Neck: Trachea midline; supple, no thyromegaly or lymphadenopathy Lungs: CTA, with normal respiratory effort and no intercostal retractions CV: RRR no murmur Abdomen: Soft, non-tender; no masses or hepatosplenomegaly Extremities: no edema, cyanosis Skin: Normal temperature, turgor and texture; no rash, ulcers or subcutaneous nodules Psych: Appropriate affect, alert and oriented to person, place and time. Neuro: alert and oriented x 3. Moving all extermities Cultures: Blood cultures 07/24/2018 no growth today Urine culture 07/24/2018 Assessment: 1) Severe Sepsis: Present on admission, manifested by fever, tachycardia, increased lactate. Etiology most likely 2) 3) 4) 5) Recommendations: - follow-up blood cultures, urine culture - Will follow. Daysi Murray MD Infectious Diseases Desulphurizer Operator [facility] ([facility]) M [phone] O [phone] Past History Past Medical History: acute [place], COPD, HIV/AIDS, hypertension, hyperlipidemia, other (schizophrenia) Past Surgical History: No surgical history Social history: smoking. denies: alcohol abuse Family history: denies: CAD Medications and Allergies Allergies Allergy/AdvReac Type Severity Reaction Status Date / Time Lettuce Allergy Unknown Uncoded 09/18/18 17:27 Home Medications Medication Instructions Recorded Confirmed Last Taken Type Emtricitab/Rilpiviri/Tenof Ala 1 each PO QAM 09/17/18 09/17/18 Unknown History [Odefsey Tablet] HYDROcodone/APAP 10-325 [Cecilia 1 each PO Q6H PRN 09/17/18 09/17/18 Unknown History 10/325] Ibuprofen [Motrin] 800 mg PO BID PRN 09/17/18 09/17/18 Unknown History Lisinopril [Zestril TAB] 40 mg PO BID 09/17/18 09/17/18 Unknown History Active Meds: Active Medications Acetaminophen (Tylenol) 650 mg PO Q4H PRN PRN Reason: Pain MILD(1-3)/Fever >100.5/HORNE Albuterol (Proventil) 2.5 mg IH Q4HRT PRN PRN Reason: Shortness Of Breath Albuterol/Ipratropium (Duoneb *Not For Prn Use*) 1 ampul IH TIDRT [facility] Last Admin: 09/19/18 08:21 Dose: 1 ampul Documented by: Aspirin (Baby Aspirin) 81 mg PO QDAY [facility] Last Admin: 09/19/18 09:06 Dose: 81 mg Documented by: Atorvastatin Calcium (Lipitor) 40 mg PO QHS [facility] Last Admin: 09/18/18 21:46 Dose: 40 mg Documented by: Docusate Sodium (Colace) 100 mg PO BID [facility] Last Admin: 09/19/18 09:06 Dose: 100 mg Documented by: Heparin Sodium (Porcine) (Heparin) 5,000 unit SUB-Q Q12HR [facility] Last Admin: 09/19/18 09:08 Dose: 5,000 unit Documented by: Hydralazine HCl (Apresoline) 20 mg IV Q4H PRN PRN Reason: HTN SYS=OR>170 Potassium Chloride 20 meq/ (Lactated Ringer's) 1,010 mls @ 125 mls/hr IV DIRECT [facility] Stop: 09/20/18 10:00 Last Admin: 09/19/18 09:38 Dose: 125 mls/hr Documented by: Lidocaine HCl (Magic Mouthwash) 15 ml PO TID [facility] Last Admin: 09/19/18 09:07 Dose: 15 ml Documented by: Miscellaneous Medication (Emtricitab/Rilpiviri/Tenof Ala [Odefsey Tablet]) 1 each PO QAM [facility] Nicotine (Habitrol) 14 mg TD QDAY [facility] Last Admin: 09/19/18 09:06 Dose: 14 mg Documented by: Nitroglycerin (Nitrostat) 0.4 mg SL Q5M PRN PRN Reason: Chest Pain Ondansetron HCl (Zofran) 4 mg IV Q8H PRN PRN Reason: Nausea And Vomiting Oxycodone/Acetaminophen (Percocet 5/325) 1 tab PO Q6H PRN PRN Reason: Pain, Moderate (4-6) Last Admin: 09/19/18 08:55 Dose: 1 tab Documented by: Sodium Chloride (Sodium Chloride Flush Syringe 10 Ml) 10 ml IV BID [facility] Last Admin: 09/18/18 22:19 Dose: 10 ml Documented by: Sodium Chloride (Sodium Chloride Flush Syringe 10 Ml) 10 ml IV PRN PRN PRN Reason: LINE FLUSH Spironolactone (Aldactone) 25 mg PO QDAY [facility] Physical Examination - Constitutional Vitals: Vital Signs Temp Pulse Resp BP Pulse Ox 98.1 F 69 18 152/85 89 09/19/18 07:38 09/19/18 08:34 09/19/18 08:34 09/19/18 07:38 09/19/18 07:38 Temperature -Last 24 Hours Temperature 98.1 F Temperature 98.0 F Temperature 98.0 F Temperature 98.6 F Temperature 98.5 F Results - Labs CBC & Chem 7: 09/19/18 05:29 09/19/18 05:29 Labs: Abnormal lab results 09/18/18 09/19/18 09/19/18 Range/Units 05:04 05:29 05:29 RBC 3.52 L (3.65-5.03) M/mm3 Hgb 11.7 L (11.8-15.2) gm/dl Hct 34.6 L (35.5-45.6) % MCV 98 H (84-94) fl MCH 33 H (28-32) pg [place] % (Auto) 15.5 H (0.0-7.3) % Potassium 3.2 L (3.6-5.0) mmol/L Chloride 110.7 H (98-107) mmol/L Carbon Dioxide 17 L (22-30) mmol/L BUN 23 H (9-20) mg/dL Creatinine 1.9 H (0.8-1.5) mg/dL Uric Acid 8.1 H (3.5-7.6) mg/dL ALT 6 L (7-56) units/L Albumin 3.2 L (3.9-5) g/dL
--- NOTE | 2018-09-19 15:05 | Progress Note ---
Assessment and Plan Cultures: 09/17/2018 Blood culture no growth so far 09/17/2018 GAS neg 09/17/2018 Urine culture neg A/P: 61-year-old male with COPD, coronary artery disease, HIV disease admitted with dysphagia/odynophagia and reporting weight loss: 1) HIV: well controlled, on Odefsey. Per history, viral load undetectable and good CD4 count. Follows up at [facility]. Odefsey is non formulary. 2) ?UTI: UA showed 12 WBC. No leucocytosis, no fever. Patient has no urinary symptoms. When questioned the patient, he was not instructed to provide a mid- stream sample. No abx needed. 3) Dysphagia / odynophagia and weight loss: Group A Strep rapid negative. Reports "bad reflux". 4) TUAN: nephrology consulted. Improving. Recs: - GI med for Dysphagia / odynophagia and weight loss - continue Odefsey when available, but it is non formulary, patient states he can have someone bring it in. (follow up renal function, Odefsey does not need renal adjustment till CrCL is <30) Will follow Daysi Murray MD Infectious Diseases Bilingual Spanish [employer]bound [employer] [facility] ([facility]) M [phone] O [phone] Subjective Date of service: 09/19/18 Principal diagnosis: odynophagia Interval history: Continues to reports odynophagia/dysphagia as well as reflux. No fever. Objective - Exam Narrative Exam: General appearance: Alert in NAD, conversant Eyes: anicteric sclerae, moist conjunctivae; no lid-lag; PERRLA HENT: Atraumatic; oropharynx clear with moist mucous membranes and no mucosal ulcerations/no oral thrush; normal hard and soft palate. Normal external ears. Neck: Trachea midline; supple, no thyromegaly or lymphadenopathy Lungs: CTA, with normal respiratory effort and no intercostal retractions CV: RRR, no murmurs Abdomen: Soft, non-tender; no masses or hepatosplenomegaly Extremities: No peripheral edema or extremity lymphadenopathy Skin: Normal temperature, turgor and texture; no rash, ulcers or subcutaneous nodules Psych: Appropriate affect, alert and oriented to person, place and time. Neuro: alert and oriented x 3. Moving all extermities - Constitutional Vitals: Vital Signs Temp Pulse Resp BP Pulse Ox 98.1 F 69 18 152/85 89 09/19/18 07:38 09/19/18 08:34 09/19/18 08:34 09/19/18 07:38 09/19/18 07:38 Temperature -Last 24 Hours Temperature 98.1 F Temperature 98.0 F Temperature 98.0 F Temperature 98.6 F Temperature 98.5 F - Labs CBC & Chem 7: 09/19/18 05:29 09/19/18 05:29 Labs: Abnormal lab results 09/19/18 09/19/18 Range/Units 05:29 05:29 RBC 3.52 L (3.65-5.03) M/mm3 Hgb 11.7 L (11.8-15.2) gm/dl Hct 34.6 L (35.5-45.6) % MCV 98 H (84-94) fl MCH 33 H (28-32) pg [place] % (Auto) 15.5 H (0.0-7.3) % Potassium 3.2 L (3.6-5.0) mmol/L Chloride 110.7 H (98-107) mmol/L Carbon Dioxide 17 L (22-30) mmol/L BUN 23 H (9-20) mg/dL Creatinine 1.9 H (0.8-1.5) mg/dL ALT 6 L (7-56) units/L Albumin 3.2 L (3.9-5) g/dL
[2018-09-19] MEDS ORDERED: K-DUR PO NR (16:31)
--- NOTE | 2018-09-19 16:50 | Gastroenterology Consultation ---
History of Present Illness - Reason for Consult Consult date: 09/19/18 dysphagia, odynophagia Requesting physician: CHEPE MANLEY - History of Present Illness Patient is a 61 y/o male with PMH COPD, HTN, CAD, HIV, and schizophrenia who presented to ED with c/o CP. ACS was ruled out by cardiology. He also has c/o dysphagia/odynophagia with associated wt loss to which GI has been consulted. ID and nephrology (TUAN) following. This afternoon patient was resting in bed w/o acute distress. He reports pain with swalling, along with feeling like his food gets stuck and then has to vomit/regurgitate it back up x ~1 week. Currently tolerating liquids. Denies fever, SOB, abd pain, or signs of bleeding. Takes Goody's power daily but has no hx of PUD. No prior EGD. Patient is previously known to our service and underwent a colonoscopy at that time (07/2017) for rectal bleeding/wt loss that showed internal hemorrhoids. No known Fhx of GI cancers. Past History Past Medical History: other (as per HPI) Past Surgical History: No surgical history Social history: smoking. denies: alcohol abuse Family history: denies: CAD Medications and Allergies Allergies Allergy/AdvReac Type Severity Reaction Status Date / Time Lettuce Allergy Unknown Uncoded 09/18/18 17:27 Home Medications Medication Instructions Recorded Confirmed Last Taken Type Emtricitab/Rilpiviri/Tenof Ala 1 each PO QAM 09/17/18 09/17/18 Unknown History [Odefsey Tablet] HYDROcodone/APAP 10-325 [[place] 1 each PO Q6H PRN 09/17/18 09/17/18 Unknown History 10/325] Ibuprofen [Motrin] 800 mg PO BID PRN 09/17/18 09/17/18 Unknown History Lisinopril [Zestril TAB] 40 mg PO BID 09/17/18 09/17/18 Unknown History Active Meds: Active Medications Acetaminophen (Tylenol) 650 mg PO Q4H PRN PRN Reason: Pain MILD(1-3)/Fever >100.5/HORNE Albuterol (Proventil) 2.5 mg IH Q4HRT PRN PRN Reason: Shortness Of Breath Albuterol/Ipratropium (Duoneb *Not For Prn Use*) 1 ampul IH TIDRT [facility] Last Admin: 09/19/18 15:10 Dose: Not Given Documented by: Aspirin (Baby Aspirin) 81 mg PO QDAY [facility] Last Admin: 09/19/18 09:06 Dose: 81 mg Documented by: Atorvastatin Calcium (Lipitor) 40 mg PO QHS [facility] Last Admin: 09/18/18 21:46 Dose: 40 mg Documented by: Docusate Sodium (Colace) 100 mg PO BID [facility] Last Admin: 09/19/18 09:06 Dose: 100 mg Documented by: Heparin Sodium (Porcine) (Heparin) 5,000 unit SUB-Q Q12HR [facility] Last Admin: 09/19/18 09:08 Dose: 5,000 unit Documented by: Hydralazine HCl (Apresoline) 20 mg IV Q4H PRN PRN Reason: HTN SYS=OR>170 Potassium Chloride 20 meq/ (Lactated Ringer's) 1,010 mls @ 125 mls/hr IV DIRECT [facility] Stop: 09/20/18 10:00 Last Admin: 09/19/18 09:38 Dose: 125 mls/hr Documented by: Lidocaine HCl (Magic Mouthwash) 15 ml PO TID [facility] Last Admin: 09/19/18 09:07 Dose: 15 ml Documented by: Miscellaneous Medication (Emtricitab/Rilpiviri/Tenof Ala [Odefsey Tablet]) 1 each PO QAM [facility] Nicotine (Habitrol) 14 mg TD QDAY [facility] Last Admin: 09/19/18 09:06 Dose: 14 mg Documented by: Nitroglycerin (Nitrostat) 0.4 mg SL Q5M PRN PRN Reason: Chest Pain Ondansetron HCl (Zofran) 4 mg IV Q8H PRN PRN Reason: Nausea And Vomiting Oxycodone/Acetaminophen (Percocet 5/325) 1 tab PO Q6H PRN PRN Reason: Pain, Moderate (4-6) Last Admin: 09/19/18 16:11 Dose: 1 tab Documented by: Potassium Chloride (K-Dur) 40 meq PO ONCE NR Stop: 09/19/18 18:00 Sodium Chloride (Sodium Chloride Flush Syringe 10 Ml) 10 ml IV BID [facility] Last Admin: 09/19/18 11:00 Dose: 10 ml Documented by: Sodium Chloride (Sodium Chloride Flush Syringe 10 Ml) 10 ml IV PRN PRN PRN Reason: LINE FLUSH Spironolactone (Aldactone) 25 mg PO QDAY SKY medications reviewed/updated as required Review of Systems - Review of Systems All systems: negative Gastrointestinal: other (dysphagia, odynophagia) Exam - Constitutional Vital Signs: Temp Pulse Resp BP Pulse Ox 98.1 F 69 18 152/85 89 09/19/18 07:38 09/19/18 08:34 09/19/18 08:34 09/19/18 07:38 09/19/18 07:38 General appearance: no acute distress - Respiratory Respiratory effort: normal - Cardiovascular Rhythm: regular - Gastrointestinal General gastrointestinal: Present: soft, non-tender, non-distended, normal bowel sounds - Neurologic Neurological: alert and oriented x3 - Labs CBC & Chem 7: 09/19/18 05:29 09/19/18 05:29 Lab Results: Laboratory Results - last 24 hr 09/19/18 09/19/18 05:29 05:29 WBC 5.2 RBC 3.52 L Hgb 11.7 L Hct 34.6 L MCV 98 H MCH 33 H MCHC 34 RDW 14.2 Plt Count 166 Lymph % (Auto) 33.2 [place] % (Auto) 15.5 H Eos % (Auto) 3.1 Baso % (Auto) 0.5 Lymph # 1.7 [place] # 0.8 Eos # 0.2 Baso # 0.0 Seg Neutrophils % 47.7 Seg Neutrophils # 2.5 Sodium 141 Potassium 3.2 L Chloride 110.7 H Carbon Dioxide 17 L Anion Gap 17 BUN 23 H Creatinine 1.9 H Estimated GFR 44 BUN/Creatinine Ratio 12 Glucose 81 Calcium 8.4 Total Bilirubin 0.20 AST 11 ALT 6 L Alkaline Phosphatase 105 Total Protein 6.8 Albumin 3.2 L Albumin/Globulin Ratio 0.9 Assessment and Plan 1.dysphagia 2.odynophagia 3.atypical CP 4.wt loss 5.HIV -afebrile -WBC WNL -H/H 11.7/34.6-no active signs of bleeding -chest x-ray-no acute process -soft tissue neck [id number] calcifications in left carotid artery -etiology unclear- possible infection, esophagitis, stricture vs other -EGD tomorrow for further evaluation -continue liquids for now as tolerated then NPO after MN -hold am dose of heparin -INR in am -start on PPI -continue magic mouthwash -continue supportive care -will follow
[2018-09-19] MEDS: NON-FORMULARY (Emtricitab/Rilpiviri/Tenof Ala [Odefsey Tablet] 1 EACH) PO SCH (17:06)
[2018-09-19] MEDS: ALDACTONE PO SCH (17:09)
--- NOTE | 2018-09-19 17:22 | Progress Note ---
Assessment and Plan Negative stress test. Will avoid AV blocking meds. For EGD. OK to proceed cardiac-jerez. - Patient Problems (1) Atypical chest pain Current Visit: Yes Status: Acute (2) Dysphagia Current Visit: Yes Status: Acute (3) Acute kidney injury superimposed on CKD Current Visit: Yes Status: Acute (4) AV block Current Visit: Yes Status: Acute (5) Hypertension Current Visit: Yes Status: Chronic Qualifiers: Hypertension type: essential hypertension Qualified Code(s): I10 - Essential (primary) hypertension (6) COPD (chronic obstructive pulmonary disease) Current Visit: Yes Status: Chronic (7) HIV antibody positive Current Visit: Yes Status: Chronic (8) Schizophrenia Current Visit: Yes Status: Chronic Subjective Principal diagnosis: odynophagia, dysphagia, atypical CP, acute on ckd, HIV, schizophrenia Interval history: He still has odynophagia, although he claims it is not as severe. Occasional episodes of 2:1 AV block on the monitor. Objective Vital Signs Temp Pulse Pulse Resp Resp BP Pulse Ox 09/19/18 08:34 69 18 09/19/18 08:21 68 18 09/19/18 07:38 98.1 F 71 18 152/85 89 09/19/18 07:00 82 09/19/18 03:49 98.0 F 63 20 148/73 99 09/18/18 23:07 98.0 F 70 20 140/69 100 09/18/18 20:45 70 09/18/18 20:33 68 16 09/18/18 19:22 98.6 F 69 20 145/78 100 - Physical Examination General: No Apparent Distress HEENT: Positive: EOMI, Normocephaly, Mucus Membranes Moist Neck: Positive: neck supple, trachea midline Cardiac: Positive: Reg Rate and Rhythm, S1/S2 Lungs: Positive: clear to auscultation Neuro: Positive: Grossly Intact Abdomen: Positive: Soft, Active Bowel Sounds. Negative: Tender Skin: Positive: Clear. Negative: Rash Musculoskeletal: Normal Range of Motion Extremities: Present: normal. Absent: edema - Labs and Meds Cardiac Enzymes 09/19/18 Range/Units 05:29 AST 11 (5-40) units/L CBC 09/19/18 Range/Units 05:29 WBC 5.2 (4.5-11.0) K/mm3 RBC 3.52 L (3.65-5.03) M/mm3 Hgb 11.7 L (11.8-15.2) gm/dl Hct 34.6 L (35.5-45.6) % Plt Count 166 (140-440) K/mm3 Lymph # 1.7 (1.2-5.4) K/mm3 [place] # 0.8 (0.0-0.8) K/mm3 Eos # 0.2 (0.0-0.4) K/mm3 Baso # 0.0 (0.0-0.1) K/mm3 Comprehensive Metabolic Panel 09/19/18 Range/Units 05:29 Sodium 141 (137-145) mmol/L Potassium 3.2 L (3.6-5.0) mmol/L Chloride 110.7 H (98-107) mmol/L Carbon Dioxide 17 L (22-30) mmol/L BUN 23 H (9-20) mg/dL Creatinine 1.9 H (0.8-1.5) mg/dL Glucose 81 (75-100) mg/dL Calcium 8.4 (8.4-10.2) mg/dL AST 11 (5-40) units/L ALT 6 L (7-56) units/L Alkaline Phosphatase 105 (35-129) units/L Total Protein 6.8 (6.3-8.2) g/dL Albumin 3.2 L (3.9-5) g/dL - Imaging and Cardiology EKG: image reviewed - Telemetry EKG Rhythm: Sinus Rhythm - EKG Sinus rhythms and dysrhythmias: sinus rhythm AV and intraventricular conduction: 2 to 1 AV block
[2018-09-19] MEDS: PROTONIX IV SCH (17:35)
[2018-09-19 18:21] LABS: Bilirubin,Urine NEG (Negative); Blood,Urine NEG (Negative); Color,Urine Yellow (Yellow); Urobilinogen,Urine < 2.0 mg/dL (<2.0)
[2018-09-19 19:07] LABS: Creatinine,Urine 58.9 mg/dL (0.1-20.0)
[2018-09-20] MEDS: PERCOCET 5/325 PO PRN ×4 (02:30→22:04)
[2018-09-20] MEDS: KCL 20 MEQ in LACTATED RINGERS 1,000 ML IV SCH (06:34)
[2018-09-20 06:43] LABS: INR 1.24 (0.87-1.13)
[2018-09-20] MEDS: MAGIC MOUTHWASH PO SCH ×3 (08:00→20:07)
--- NOTE | 2018-09-20 09:37 | Progress Note ---
Subjective Principal diagnosis: odynophagia, dysphagia, atypical CP, acute on ckd, HIV, schizophrenia Interval history: Patient was seen today for follow-up on multiple renal related issues Patient denies any complaints of chest pain shortness of breath nausea vomiting Events over 24 hours were noted Vitals intake output medications were reviewed Allergies: Reviewed Social/family history: Reviewed Physical examination: Gen.: No acute distress HEENT: Oral mucosa moist, no icterus Neck: Supple no thyromegaly maass or JVD Chest: Clear to auscultation Heart: Regular rate and rhythm S1-S2 heard no S3-S4 Abdomen: Soft nontender no suprapubic masses nor organomegaly Extremity: Dry skin less than 1+ edema,No petechial rashes Psych: No evidence of any agitation and aggression noted Neurological: Alert awake Assessment and plan Acute renal failure with underlying chronic kidney disease yesterday the creatinine was 1.9 potassium was 3.2 patient will need a follow-up labs including basic metabolic profile as well as a magnesium level, instructed to abstain from nonsteroidal drugs Hypertension, hypokalemia with renal failure patient has been felt to have secondary hypertension and hence Aldactone has been started if discharge he will need to have a follow-up basic metabolic profile within 3-5 days and then make an appointment the same week for follow up in our office, Ultrasonogram obtained during this admission, shows possible renal disease, also possibly may have a bladder mass please consider urology evaluation and direct cystoscopy patient is high-risk, he has been explained about ultrasonogram finding Renal cyst which can be commonly seen with chronic kidney disease Patient appears to be very poorly compliant without discussing with him about his renal issue he expressed his desire that he wants to go home He possibly may have underlying stage III chronic kidney disease Proteinuria likely due to chronic kidney disease will need follow-up in outpatient setting In the previous admission September 2014 his creatinine was 1.6 If his renal function is stable electrolytes are okay he is stable to be discharged from renal standpoint I have advised him to make an appointment to the clinic in a week or 2 after discharge Educated him about renal diet, need to follow a proper diet and lifestyle Renal prognosis long-term: Guarded, poor, prognosis will depend on patient's compliance Told him that he must take responsibility for his own health and follow medical advice Patient has been adequately counseled and educated regarding all the renal related issues and does have a good understanding Lab results as well as renal progress was discussed with patient and simple [place] We will continue to follow and make recommendation from renal standpoint. For any questions please call me at: [phone] Objective - Vital Signs Vital signs: Vital Signs - 12hr 09/19/18 09/20/18 09/20/18 23:45 02:30 04:30 Temperature 98.0 F 98.0 F Pulse Rate 69 73 Respiratory 18 18 18 Rate Blood Pressure 185/97 150/86 O2 Sat by Pulse 100 99 Oximetry 09/20/18 09/20/18 09/20/18 06:12 07:30 08:41 Temperature 98.1 F Pulse Rate 63 Respiratory 18 20 Rate Blood Pressure 171/78 O2 Sat by Pulse 99 98 Oximetry - Lab 09/19/18 05:29 09/19/18 05:29 Most recent lab results Calcium 8.4 mg/dL (8.4-10.2) 09/19/18 05:29 Phosphorus 4.90 mg/dL (2.5-4.5) H 09/17/18 17:34 Magnesium 2.10 mg/dL (1.7-2.3) 09/17/18 17:34 58.9 mg/dL (0.1-20.0) H 09/18/18 17:21 149 mg/dL (5-11.8) H 09/18/18 17:21 Medications & Allergies - Medications Allergies/Adverse Reactions: Allergies Lettuce Allergy (Uncoded 09/18/18 17:27) Unknown Home Medications: Home Medications Medication Instructions Recorded Confirmed Last Taken Type Emtricitab/Rilpiviri/Tenof Ala 1 each PO QAM 09/17/18 09/17/18 Unknown History [Odefsey Tablet] HYDROcodone/APAP 10-325 [[place] 1 each PO Q6H PRN 09/17/18 09/17/18 Unknown History 10/325] Ibuprofen [Motrin] 800 mg PO BID PRN 09/17/18 09/17/18 Unknown History Lisinopril [Zestril TAB] 40 mg PO BID 09/17/18 09/17/18 Unknown History Active Medications: Generic Name Dose Route Start Last Admin Trade Name Freq PRN Reason Stop Dose Admin Acetaminophen 650 mg 09/17/18 19:57 Tylenol PO Q4H PRN Pain MILD(1-3)/Fever >100.5/HORNE Albuterol 2.5 mg 09/17/18 19:57 Proventil IH Q4HRT PRN Shortness Of Breath Aspirin 81 mg 09/18/18 10:00 09/19/18 09:06 Baby Aspirin PO 81 mg QDAY SKY Administration Atorvastatin Calcium 40 mg 09/17/18 22:00 09/19/18 21:26 Lipitor PO 40 mg QHS SKY Administration Docusate Sodium 100 mg 09/17/18 22:00 09/19/18 21:26 Colace PO 100 mg BID SKY Administration Heparin Sodium (Porcine) 5,000 unit 09/17/18 22:00 09/19/18 21:26 Heparin SUB-Q 5,000 unit Q12HR SKY Administration Hydralazine HCl 20 mg 09/18/18 15:56 09/19/18 23:57 Apresoline IV 20 mg Q4H PRN Administration HTN SYS=OR>170 Potassium Chloride 20 meq/ 1,010 mls @ 125 mls/hr 09/18/18 16:00 09/20/18 06:34 Lactated Ringer's IV 09/20/18 10:00 125 mls/hr DIRECT SKY Administration Lidocaine HCl 15 ml 09/18/18 14:00 09/19/18 21:25 Magic Mouthwash PO 15 ml TID SKY Administration Miscellaneous Medication 1 each 09/18/18 10:00 09/19/18 17:06 Emtricitab/Rilpiviri/Tenof Ala [Odefsey Tablet] PO 1 each QAM SKY Administration Nicotine 14 mg 09/19/18 10:00 09/19/18 09:06 Habitrol TD 14 mg QDAY SKY Administration Nitroglycerin 0.4 mg 09/17/18 20:03 Nitrostat SL Q5M PRN Chest Pain Ondansetron HCl 4 mg 09/17/18 19:57 Zofran IV Q8H PRN Nausea And Vomiting Oxycodone/Acetaminophen 1 tab 09/17/18 19:57 09/20/18 08:41 Percocet 5/325 PO 1 tab Q6H PRN Administration Pain, Moderate (4-6) Pantoprazole Sodium 40 mg 09/19/18 18:00 09/19/18 17:35 Protonix IV 40 mg QDAY SKY Administration Sodium Chloride 10 ml 09/17/18 22:00 09/19/18 21:27 Sodium Chloride Flush Syringe 10 Ml IV 10 ml BID SKY Administration Sodium Chloride 10 ml 09/17/18 19:57 Sodium Chloride Flush Syringe 10 Ml IV PRN PRN LINE FLUSH Spironolactone 25 mg 09/19/18 10:00 09/19/18 17:09 Aldactone PO 25 mg QDAY SKY Administration
--- NOTE | 2018-09-20 09:37 | Progress Note ---
Subjective Principal diagnosis: odynophagia, dysphagia, atypical CP, acute on ckd, HIV, schizophrenia Interval history: Patient was seen today for follow-up on multiple renal related issues He has very poor understanding of his overall health including renal failure despite counseling and education He wants to know when he can be discharged home Blood pressure has been elevated Patient denies any complaints of chest pain shortness of breath nausea vomiting Events over 24 hours were noted Vitals intake output medications were reviewed Allergies: Reviewed Social/family history: Reviewed Physical examination: Gen.: No acute distress HEENT: Oral mucosa moist, no icterus Neck: Supple no thyromegaly maass or JVD Chest: Clear to auscultation Heart: Regular rate and rhythm S1-S2 heard no S3-S4 Abdomen: Soft nontender no suprapubic masses nor organomegaly Extremity: Dry skin less than 1+ edema,No petechial rashes Psych: No evidence of any agitation and aggression noted Neurological: Alert awake Assessment and plan Acute kidney injury: Improving renal function and no evidence to suggest acute tubular necrosis mostly appeared to be volume depleted, we'll continue to monitor renal function at this time There is no indication for renal replacement therapy, patient is very poorly educated about his renal issues have adequately counseled and educated him that he does have chronic kidney disease Pending ultrasonogram results to follow, Accelerated hypertension with hypokalemia likely secondary hypertension we'll consider adding Aldactone with caution discussed with patient Would like to discontinue IV fluid tomorrow, Hyponatremia will need ongoing monitoring He does have evidence of proteinuria nearly 100 mg a random specimen which could be multifactorial and will need to be pursued in the outpatient setting Metabolic acidosis patient will require sodium bicarbonate tablet to twice a day upon discharge discussed about metabolic acidosis need to change diet to reduce animal protein moderately, Patient will need to make an appointment for follow-up in the office next week He has been adequately counseled and educated regarding all her renal-related issues Prognosis will depend on his compliance Patient has been adequately counseled and educated regarding all the renal related issues and does have a good understanding Lab results as well as renal progress was discussed with patient and simple [place] We will continue to follow and make recommendation from renal standpoint. For any questions please call me at: [phone] Objective - Vital Signs Vital signs: Vital Signs - 12hr 09/19/18 09/20/18 09/20/18 23:45 02:30 04:30 Temperature 98.0 F 98.0 F Pulse Rate 69 73 Respiratory 18 18 18 Rate Blood Pressure 185/97 150/86 O2 Sat by Pulse 100 99 Oximetry 09/20/18 09/20/18 09/20/18 06:12 07:30 08:41 Temperature 98.1 F Pulse Rate 63 Respiratory 18 20 Rate Blood Pressure 171/78 O2 Sat by Pulse 99 98 Oximetry - Lab 09/19/18 05:29 09/19/18 05:29 Most recent lab results Calcium 8.4 mg/dL (8.4-10.2) 09/19/18 05:29 Phosphorus 4.90 mg/dL (2.5-4.5) H 09/17/18 17:34 Magnesium 2.10 mg/dL (1.7-2.3) 09/17/18 17:34 58.9 mg/dL (0.1-20.0) H 09/18/18 17:21 149 mg/dL (5-11.8) H 09/18/18 17:21 Medications & Allergies - Medications Allergies/Adverse Reactions: Allergies Lettuce Allergy (Uncoded 09/18/18 17:27) Unknown Home Medications: Home Medications Medication Instructions Recorded Confirmed Last Taken Type Emtricitab/Rilpiviri/Tenof Ala 1 each PO QAM 09/17/18 09/17/18 Unknown History [Odefsey Tablet] HYDROcodone/APAP 10-325 [[place] 1 each PO Q6H PRN 09/17/18 09/17/18 Unknown History 10/325] Ibuprofen [Motrin] 800 mg PO BID PRN 09/17/18 09/17/18 Unknown History Lisinopril [Zestril TAB] 40 mg PO BID 09/17/18 09/17/18 Unknown History Active Medications: Generic Name Dose Route Start Last Admin Trade Name Freq PRN Reason Stop Dose Admin Acetaminophen 650 mg 09/17/18 19:57 Tylenol PO Q4H PRN Pain MILD(1-3)/Fever >100.5/HORNE Albuterol 2.5 mg 09/17/18 19:57 Proventil IH Q4HRT PRN Shortness Of Breath Aspirin 81 mg 09/18/18 10:00 09/19/18 09:06 Baby Aspirin PO 81 mg QDAY SKY Administration Atorvastatin Calcium 40 mg 09/17/18 22:00 09/19/18 21:26 Lipitor PO 40 mg QHS SKY Administration Docusate Sodium 100 mg 09/17/18 22:00 09/19/18 21:26 Colace PO 100 mg BID SKY Administration Heparin Sodium (Porcine) 5,000 unit 09/17/18 22:00 09/19/18 21:26 Heparin SUB-Q 5,000 unit Q12HR SKY Administration Hydralazine HCl 20 mg 09/18/18 15:56 09/19/18 23:57 Apresoline IV 20 mg Q4H PRN Administration HTN SYS=OR>170 Potassium Chloride 20 meq/ 1,010 mls @ 125 mls/hr 09/18/18 16:00 09/20/18 06:34 Lactated Ringer's IV 09/20/18 10:00 125 mls/hr DIRECT SKY Administration Lidocaine HCl 15 ml 09/18/18 14:00 09/19/18 21:25 Magic Mouthwash PO 15 ml TID SKY Administration Miscellaneous Medication 1 each 09/18/18 10:00 09/19/18 17:06 Emtricitab/Rilpiviri/Tenof Ala [Odefsey Tablet] PO 1 each QAM SKY Administration Nicotine 14 mg 09/19/18 10:00 09/19/18 09:06 Habitrol TD 14 mg QDAY SKY Administration Nitroglycerin 0.4 mg 09/17/18 20:03 Nitrostat SL Q5M PRN Chest Pain Ondansetron HCl 4 mg 09/17/18 19:57 Zofran IV Q8H PRN Nausea And Vomiting Oxycodone/Acetaminophen 1 tab 09/17/18 19:57 09/20/18 08:41 Percocet 5/325 PO 1 tab Q6H PRN Administration Pain, Moderate (4-6) Pantoprazole Sodium 40 mg 09/19/18 18:00 09/19/18 17:35 Protonix IV 40 mg QDAY SKY Administration Sodium Chloride 10 ml 09/17/18 22:00 09/19/18 21:27 Sodium Chloride Flush Syringe 10 Ml IV 10 ml BID SKY Administration Sodium Chloride 10 ml 09/17/18 19:57 Sodium Chloride Flush Syringe 10 Ml IV PRN PRN LINE FLUSH Spironolactone 25 mg 09/19/18 10:00 09/19/18 17:09 Aldactone PO 25 mg QDAY SKY Administration
[2018-09-20] MEDS: SODIUM CHLORIDE FLUSH SYRINGE 10 ML IV SCH ×2 (10:00→22:08)
[2018-09-20] MEDS: COLACE PO SCH ×2 (10:00→22:08)
[2018-09-20] MEDS: HEPARIN SUB-Q SCH ×2 (10:00→22:08)
[2018-09-20] MEDS: PROTONIX IV SCH (10:00)
--- NOTE | 2018-09-20 10:59 | Event Note ---
Date: 09/20/18 Notified by cardiology that patient went into 2nd degree HB overnight. Will cancel EGD today and order esophagram once patient is stable. Consider starting on empric Diflucan if okay with ID.
[2018-09-20 11:44] LABS: BUN/Creatinine Ratio 14; Blood Urea Nitrogen 19 mg/dL (9-20); Calcium 9.5 mg/dL (8.4-10.2); Hemolysis Index 8
--- NOTE | 2018-09-20 11:54 | Progress Note ---
Assessment and Plan With recent findings of high degree AV block and pauses, I am hesitatnt to have him proceed with his upper endoscopy today. He will be evaluated by Dr. Catherine, our tip tester, for possible PPM. Initiate hydralazine for BP control. - Patient Problems (1) High degree atrioventricular block Current Visit: Yes Status: Acute (2) Atypical chest pain Current Visit: Yes Status: Acute (3) Dysphagia Current Visit: Yes Status: Acute (4) Acute kidney injury superimposed on CKD Current Visit: Yes Status: Acute (5) Hypertension Current Visit: Yes Status: Chronic Qualifiers: Hypertension type: essential hypertension Qualified Code(s): I10 - Essential (primary) hypertension (6) COPD (chronic obstructive pulmonary disease) Current Visit: Yes Status: Chronic (7) HIV antibody positive Current Visit: Yes Status: Chronic (8) Schizophrenia Current Visit: Yes Status: Chronic Subjective Date of service: 09/20/18 Principal diagnosis: odynophagia, dysphagia, atypical CP, acute on ckd, HIV, schizophrenia Interval history: The patient has demonstrated intermittent episodes of marked sinus bradycardia and high degree AV block on the monitor 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 Objective Vital Signs Temp Pulse Pulse Resp Resp BP Pulse Ox 09/20/18 08:41 20 09/20/18 07:30 98.1 F 63 18 171/78 98 09/20/18 06:12 99 09/20/18 04:30 98.0 F 73 18 150/86 99 09/20/18 02:30 18 09/19/18 23:45 98.0 F 69 18 185/97 100 09/19/18 21:00 84 09/19/18 20:03 80 18 09/19/18 19:49 98.0 F 84 20 173/94 100 09/19/18 16:52 98.4 F 67 12 173/80 100 09/19/18 15:00 80 09/19/18 12:27 98.5 F 66 18 155/84 87 09/19/18 12:00 16 97 - Physical Examination General: No Apparent Distress HEENT: Positive: EOMI, Normocephaly, Mucus Membranes Moist Neck: Positive: neck supple, trachea midline Cardiac: Positive: Reg Rate and Rhythm, S1/S2 Lungs: Positive: clear to auscultation Neuro: Positive: Grossly Intact Abdomen: Positive: Soft, Active Bowel Sounds. Negative: Tender Skin: Positive: Clear. Negative: Rash Musculoskeletal: Normal Range of Motion Extremities: Present: normal. Absent: edema - Labs and Meds Coagulation 09/20/18 Range/Units 05:44 PT 15.3 H (12.2-14.9) Sec. INR 1.24 H (0.87-1.13) Comprehensive Metabolic Panel 09/20/18 Range/Units 10:59 Sodium 138 (137-145) mmol/L Chloride 105.5 (98-107) mmol/L Carbon Dioxide 21 L (22-30) mmol/L BUN 19 (9-20) mg/dL Creatinine 1.4 (0.8-1.5) mg/dL Glucose 95 (75-100) mg/dL Calcium 9.5 (8.4-10.2) mg/dL - Imaging and Cardiology EKG: image reviewed - Telemetry EKG Rhythm: Sinus Rhythm (intermittent high degree AV block and brief pauses) - EKG Sinus rhythms and dysrhythmias: sinus rhythm AV and intraventricular conduction: 2 to 1 AV block
--- NOTE | 2018-09-20 12:18 | Progress Note ---
Assessment and Plan Assessment and plan: 61-year-old -[place] male with history of COPD, MS, retention, HIV who presents [facility] with complaints of intermittent left-sided chest pain with radiation to left arm and the discomfort for the past 4 days. CXR showed hyperexpanded lungs chest of COPD. No acute cardiopulmonary abnormalities noted. Neck x-ray was unrevealing for acute abnormalities. He was found to be mildly hyponatremic with Na of 133. Elevated urine WBC at 12.0. Patient was initially scheduled for EGD, however patient had asymptomatic intermittent high degree heart block on the monitor,and EGD cancelled,Envelope Machine Adjuster adv transfer to ICU --Intermittent high degree heart block; patient isn't symptomatic Cardiology Dr Rodríguez recommend close monitoring in ICU Electro Tech Dr.Minnette Catherine is aware --Dysphagia; odynophagia, supportive care, Magic mouthwash swish and swallow Diet as tolerated, GI consult improvement Also consider Belen esophagitis --Hyponatremia;, resolved --Hypokalemia; resolved --Acute on chronic renal failure; vasomotor nephropathy Closely monitor renal function, avoid nephrotoxins, Creatinine back to baseline --HIV; continue current management per ID Patient follows with [facility], --Severe malnutrition; nutrition supplements and supportive care Nutrition consult as needed --DVT prophylaxis; Lovenox Monitor closely and adjust management as needed Patient will be transferred to ICU for close monitoring secondary to high degree AV block. Case discussed with pit hand Dr. Butler, and requested critical care consult Critical care time 36 minutes History Interval history: Patient seen and examined medical records reviewed Patient is scheduled for EGD today Anxious to go home after the procedure Vital signs reviewed Patient had intermittent episodes of high degree AV block Last night, patient was asymptomatic Patient denies chest pain, dizziness or weakness Vital signs reviewed Hospitalist Physical - Constitutional Vitals: Temp Pulse Resp BP Pulse Ox 98.2 F 27 L 18 150/74 100 09/20/18 11:36 09/20/18 12:00 09/20/18 11:36 09/20/18 12:00 09/20/18 11:36 General appearance: Present: no acute distress, cachectic, disheveled - EENT Eyes: Present: PERRL, EOM intact - Neck Neck: Present: supple, normal ROM - Respiratory Respiratory effort: normal Respiratory: bilateral: diminished, negative: rales, rhonchi, wheezing - Cardiovascular Rhythm: regular Heart Sounds: Present: S1 & S2 (intermittent bradycardia) - Extremities Extremities: no ischemia, pulses intact - Abdominal General gastrointestinal: soft, non-tender, non-distended, normal bowel sounds - Integumentary Integumentary: Present: clear, warm - Psychiatric Psychiatric: appropriate mood/affect, cooperative - Neurologic Neurologic: CNII-XII intact, moves all extremities Results - Labs CBC & Chem 7: 09/19/18 05:29 09/20/18 10:59 Labs: Laboratory Last Values WBC 5.2 K/mm3 (4.5-11.0) 09/19/18 05:29 RBC 3.52 M/mm3 (3.65-5.03) L 09/19/18 05:29 Hgb 11.7 gm/dl (11.8-15.2) L 09/19/18 05:29 Hct 34.6 % (35.5-45.6) L 09/19/18 05:29 MCV 98 fl (84-94) H 09/19/18 05:29 MCH 33 pg (28-32) H 09/19/18 05:29 MCHC 34 % (32-34) 09/19/18 05:29 RDW 14.2 % (13.2-15.2) 09/19/18 05:29 Plt Count 166 K/mm3 (140-440) 09/19/18 05:29 Lymph % (Auto) 33.2 % (13.4-35.0) 09/19/18 05:29 [place] % (Auto) 15.5 % (0.0-7.3) H 09/19/18 05:29 Eos % (Auto) 3.1 % (0.0-4.3) 09/19/18 05:29 Baso % (Auto) 0.5 % (0.0-1.8) 09/19/18 05:29 Lymph # 1.7 K/mm3 (1.2-5.4) 09/19/18 05:29 [place] # 0.8 K/mm3 (0.0-0.8) 09/19/18 05:29 Eos # 0.2 K/mm3 (0.0-0.4) 09/19/18 05:29 Baso # 0.0 K/mm3 (0.0-0.1) 09/19/18 05:29 Seg Neutrophils % 47.7 % (40.0-70.0) 09/19/18 05:29 Seg Neutrophils # 2.5 K/mm3 (1.8-7.7) 09/19/18 05:29 PT 15.3 Sec. (12.2-14.9) H 09/20/18 05:44 INR 1.24 (0.87-1.13) H 09/20/18 05:44 Sodium 138 mmol/L (137-145) 09/20/18 10:59 Potassium 4.3 mmol/L (3.6-5.0) D 09/20/18 10:59 Chloride 105.5 mmol/L (98-107) 09/20/18 10:59 Carbon Dioxide 21 mmol/L (22-30) L 09/20/18 10:59 16 mmol/L 09/20/18 10:59 BUN 19 mg/dL (9-20) 09/20/18 10:59 1.4 mg/dL (0.8-1.5) 09/20/18 10:59 Estimated GFR > 60 ml/min 09/20/18 10:59 14 % 09/20/18 10:59 Glucose 95 mg/dL (75-100) 09/20/18 10:59 8.1 mg/dL (3.5-7.6) H 09/18/18 05:04 Calcium 9.5 mg/dL (8.4-10.2) 09/20/18 10:59 Phosphorus 4.90 mg/dL (2.5-4.5) H 09/17/18 17:34 Magnesium 1.80 mg/dL (1.7-2.3) 09/20/18 10:59 0.20 mg/dL (0.1-1.2) 09/19/18 05:29 AST 11 units/L (5-40) 09/19/18 05:29 ALT 6 units/L (7-56) L 09/19/18 05:29 105 units/L (35-129) 09/19/18 05:29 < 0.010 ng/mL (0.00-0.029) 09/18/18 00:44 NT-Pro-B Natriuret Pep 636.1 pg/mL (0-900) 09/17/18 17:34 6.8 g/dL (6.3-8.2) 09/19/18 05:29 3.2 g/dL (3.9-5) L 09/19/18 05:29 0.9 % 09/19/18 05:29 Triglycerides 255 mg/dL (2-149) H 09/18/18 05:48 Cholesterol 146 mg/dL (50-199) 09/18/18 05:48 76 mg/dL (50-130) 09/18/18 05:48 18 mg/dL (40-59) L 09/18/18 05:48 8.11 % 09/18/18 05:48 TSH 0.920 mlU/mL (0.270-4.200) 09/20/18 05:44 Free T4 0.81 ng/dL (0.76-1.46) 09/20/18 05:44 Yellow (Yellow) 09/18/18 17:21 Clear (Clear) 09/18/18 17:21 6.0 (5.0-7.0) 09/18/18 17:21 Ur Specific [facility] 1.012 (1.003-1.030) 09/18/18 17:21 100 mg/dl mg/dL (Negative) 09/18/18 17:21 Neg mg/dL (Negative) 09/18/18 17:21 Neg mg/dL (Negative) 09/18/18 17:21 Neg (Negative) 09/18/18 17:21 Neg (Negative) 09/18/18 17:21 Neg (Negative) 09/18/18 17:21 < 2.0 mg/dL (<2.0) 09/18/18 17:21 Ur Leukocyte Esterase Neg (Negative) 09/18/18 17:21 1.0 /HPF (0.0-6.0) 09/18/18 17:21 1.0 /HPF (0.0-6.0) 09/18/18 17:21 58.9 mg/dL (0.1-20.0) H 09/18/18 17:21 149 mg/dL (5-11.8) H 09/18/18 17:21 Group A Strep Rapid Negative (Negative) 09/17/18 Unknown Active Medications - Current Medications Current Medications: Generic Name Dose Route Start Last Admin Trade Name Freq PRN Reason Stop Dose Admin Acetaminophen 650 mg 09/17/18 19:57 Tylenol PO Q4H PRN Pain MILD(1-3)/Fever >100.5/HORNE Albuterol 2.5 mg 09/17/18 19:57 Proventil IH Q4HRT PRN Shortness Of Breath Aspirin 81 mg 09/18/18 10:00 09/19/18 09:06 Baby Aspirin PO 81 mg QDAY SKY Administration Atorvastatin Calcium 40 mg 09/17/18 22:00 09/19/18 21:26 Lipitor PO 40 mg QHS SKY Administration Docusate Sodium 100 mg 09/17/18 22:00 09/19/18 21:26 Colace PO 100 mg BID SKY Administration Heparin Sodium (Porcine) 5,000 unit 09/17/18 22:00 09/19/18 21:26 Heparin SUB-Q 5,000 unit Q12HR SKY Administration Hydralazine HCl 50 mg 09/20/18 12:00 Apresoline PO Q6H SKY Lidocaine HCl 15 ml 09/18/18 14:00 09/19/18 21:25 Magic Mouthwash PO 15 ml TID SKY Administration Miscellaneous Medication 1 each 09/18/18 10:00 09/19/18 17:06 Emtricitab/Rilpiviri/Tenof Ala [Odefsey Tablet] PO 1 each QAM SKY Administration Nicotine 14 mg 09/19/18 10:00 09/19/18 09:06 Habitrol TD 14 mg QDAY SKY Administration Nitroglycerin 0.4 mg 09/17/18 20:03 Nitrostat SL Q5M PRN Chest Pain Ondansetron HCl 4 mg 09/17/18 19:57 Zofran IV Q8H PRN Nausea And Vomiting Oxycodone/Acetaminophen 1 tab 09/17/18 19:57 09/20/18 08:41 Percocet 5/325 PO 1 tab Q6H PRN Administration Pain, Moderate (4-6) Pantoprazole Sodium 40 mg 09/19/18 18:00 09/19/18 17:35 Protonix IV 40 mg QDAY SKY Administration Sodium Chloride 10 ml 09/17/18 22:00 09/19/18 21:27 Sodium Chloride Flush Syringe 10 Ml IV 10 ml BID SKY Administration Sodium Chloride 10 ml 09/17/18 19:57 Sodium Chloride Flush Syringe 10 Ml IV PRN PRN LINE FLUSH Spironolactone 25 mg 09/19/18 10:00 09/19/18 17:09 Aldactone PO 25 mg QDAY SKY Administration Nutrition/Malnutrition Assess - Dietary Evaluation Nutrition/Malnutrition Findings: Nutrition Notes Start: 09/18/18 17:16 Freq: Status: Active Protocol: Document 09/18/18 17:16 RM (Rec: 09/18/18 17:26 RM [id number]) Nutrition Notes 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 NPO in place earlier today. Cardiac diet ordered later today. 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 Also stated that at home he drinks Ensure TID. Stated that his appetite is fair now. Noted lunch at bedside w/25% eaten. Denied chewing difficulty. Stated UBW is 134 lbs but unsure how long ago he weighed that. Noted temporal wasting. Percent of energy/protein needs met: 23%/31% Burn Absent Trauma Absent #1 Nutrition Diagnosis Malnutrition Etiology HIV, Schizophrenia As Evidenced by Signs and Symptoms temporal wasting, BMI 17 Is patient on ventilator? No Is Patient Ambulatory and/or Out of Bed Yes REE-([facility]-ambulatory/OOB) [ 1820.000 NUTR.MSJOOB] Kcal/Kg value to use for calculation 41 Approximate Energy Requirements Using 2325 kcal/Kg Calculation Used for Recommendations Kcal/kg Additional Notes Protein Needs: 68-85g (1.2-1. 5g/kg) Fluid Needs: 1 ml/kcal Nutrition Intervention Change Diet Order: Continue current Add Supplement/Snack (indicate name/kcal Ensure Enlive [place] TID /protein ) Provides kCal: 1,050 Provides Protein (gm) 60 Goal #1 Meet at least 75% of calorie and protein needs via PO and ONS intakes Goal #2 Wt gain/mainetenance Anticipated Discharge Needs: Cardiac diet Follow-Up By: 09/20/18 Additional Comments Follow for PO and ONS intakes
[2018-09-20] MEDS: APRESOLINE PO SCH ×2 (12:58→17:26)
[2018-09-20] MEDS: HABITROL TD SCH (12:59)
[2018-09-20] MEDS: BABY ASPIRIN PO SCH (12:59)
[2018-09-20] MEDS: ALDACTONE PO SCH (12:59)
[2018-09-20] MEDS: NON-FORMULARY (Emtricitab/Rilpiviri/Tenof Ala [Odefsey Tablet] 1 EACH) PO SCH (13:01)
--- NOTE | 2018-09-20 14:53 | Consultation ---
History of Present Illness - Reason for Consult Consult date: 09/20/18 heart block 2nd degree Requesting physician: CHEPE MANLEY - History of Present Illness 62 male with newly diagnosed 2nd degree heart block. Patient was to have a GI procedure today but cards consulted secondary to abnormalities in conduction system. They have requested patient be watched in the ICU overnight. patient has been here since 09/17 but this is the first documentation of this. Past History Past Medical History: other (as per HPI) Past Surgical History: No surgical history Social history: smoking. denies: alcohol abuse Family history: denies: CAD Medications and Allergies Allergies Allergy/AdvReac Type Severity Reaction Status Date / Time Lettuce Allergy Unknown Uncoded 09/18/18 17:27 Home Medications Medication Instructions Recorded Confirmed Last Taken Type Emtricitab/Rilpiviri/Tenof Ala 1 each PO QAM 09/17/18 09/17/18 Unknown History [Odefsey Tablet] HYDROcodone/APAP 10-325 [[place] 1 each PO Q6H PRN 09/17/18 09/17/18 Unknown History 10/325] Ibuprofen [Motrin] 800 mg PO BID PRN 09/17/18 09/17/18 Unknown History Lisinopril [Zestril TAB] 40 mg PO BID 09/17/18 09/17/18 Unknown History Active Meds: Active Medications Acetaminophen (Tylenol) 650 mg PO Q4H PRN PRN Reason: Pain MILD(1-3)/Fever >100.5/HORNE Albuterol (Proventil) 2.5 mg IH Q4HRT PRN PRN Reason: Shortness Of Breath Aspirin (Baby Aspirin) 81 mg PO QDAY [facility] Last Admin: 09/20/18 12:59 Dose: 81 mg Documented by: Atorvastatin Calcium (Lipitor) 40 mg PO QHS [facility] Last Admin: 09/19/18 21:26 Dose: 40 mg Documented by: Docusate Sodium (Colace) 100 mg PO BID [facility] Last Admin: 09/20/18 10:00 Dose: Not Given Documented by: Heparin Sodium (Porcine) (Heparin) 5,000 unit SUB-Q Q12HR [facility] Last Admin: 09/20/18 10:00 Dose: Not Given Documented by: Hydralazine HCl (Apresoline) 50 mg PO Q6H [facility] Last Admin: 09/20/18 12:58 Dose: 50 mg Documented by: Lidocaine HCl (Magic Mouthwash) 15 ml PO TID [facility] Last Admin: 09/20/18 08:00 Dose: Not Given Documented by: Miscellaneous Medication (Emtricitab/Rilpiviri/Tenof Ala [Odefsey Tablet]) 1 each PO QAM [facility] Last Admin: 09/20/18 13:01 Dose: 1 each Documented by: Nicotine (Habitrol) 14 mg TD QDAY [facility] Last Admin: 09/20/18 12:59 Dose: 14 mg Documented by: Nitroglycerin (Nitrostat) 0.4 mg SL Q5M PRN PRN Reason: Chest Pain Ondansetron HCl (Zofran) 4 mg IV Q8H PRN PRN Reason: Nausea And Vomiting Oxycodone/Acetaminophen (Percocet 5/325) 1 tab PO Q6H PRN PRN Reason: Pain, Moderate (4-6) Last Admin: 09/20/18 08:41 Dose: 1 tab Documented by: Pantoprazole Sodium (Protonix) 40 mg IV QDAY [facility] Last Admin: 09/20/18 10:00 Dose: Not Given Documented by: Sodium Chloride (Sodium Chloride Flush Syringe 10 Ml) 10 ml IV BID [facility] Last Admin: 09/20/18 10:00 Dose: 10 ml Documented by: Sodium Chloride (Sodium Chloride Flush Syringe 10 Ml) 10 ml IV PRN PRN PRN Reason: LINE FLUSH Spironolactone (Aldactone) 25 mg PO QDAY [facility] Last Admin: 09/20/18 12:59 Dose: 25 mg Documented by: Review of Systems All systems: negative Exam - Constitutional Vitals: Temp Pulse Resp BP Pulse Ox 98.2 F 70 20 150/74 98 09/20/18 11:36 09/20/18 13:00 09/20/18 12:00 09/20/18 12:59 09/20/18 12:00 General appearance: Present: no acute distress, well-nourished - EENT Eyes: Present: PERRL, EOM intact ENT: hearing intact, clear oral mucosa - Neck Neck: Present: supple, normal ROM - Respiratory Respiratory effort: normal Respiratory: bilateral: CTA - Cardiovascular Rhythm: regular Heart Sounds: Present: S1 & S2 - Abdominal General gastrointestinal: Present: soft, non-tender, normal bowel sounds Male genitourinary: Present: deferred - Rectal Rectal Exam: deferred Results - Labs CBC & Chem 7: 09/19/18 05:29 09/20/18 10:59 Labs: Abnormal lab results 09/18/18 09/20/18 09/20/18 Range/Units 17:21 05:44 10:59 PT 15.3 H (12.2-14.9) Sec. INR 1.24 H (0.87-1.13) Carbon Dioxide 21 L (22-30) mmol/L Urine Creatinine 58.9 H (0.1-20.0) mg/dL Urine Total Protein 149 H (5-11.8) mg/dL Assessment and Plan 62 y/o with newly diagnosed second degree AV block. Cards does not specify if Mobitz type 1 or 2 but they feel uncomfortable with patient on tele so asked for transfer. Per them however no requirement for temporary pacemaker at this time. They have spoken with EP who will see the patient. Continue cardiac monitoring. Atropine at bedside.
[2018-09-20] MEDS ORDERED: NACL 0.9% 500 ML 500 ML IV SCH (16:00)
--- NOTE | 2018-09-20 18:16 | Progress Note ---
Assessment and Plan Cultures: 09/17/2018 Blood culture no growth so far 09/17/2018 GAS neg 09/17/2018 Urine culture neg A/P: 61-year-old male with COPD, coronary artery disease, HIV disease admitted with dysphagia/odynophagia and reporting weight loss: 1) HIV: well controlled, on Odefsey. Per history, viral load undetectable and good CD4 count. Follows up at [place]. Odefsey is non formulary. 2) ?UTI: UA showed 12 WBC. No leucocytosis, no fever. Patient has no urinary symptoms. When questioned the patient, he was not instructed to provide a mid- stream sample. No abx needed. 3) Dysphagia / odynophagia and weight loss: Group A Strep rapid negative. Reports "bad reflux". 4) TUAN: nephrology consulted. Improving. 5) Heart block Recs: - GI med endoscopy v/s esophogram for Dysphagia / odynophagia and weight loss - continue Odefsey - add fluconazole 200 mg po qday for now Will follow Daysi Murray MD Infectious Diseases Sap Technical Developer [facility] M [phone] O [phone] Subjective Date of service: 09/20/18 Principal diagnosis: odynophagia, dysphagia, atypical CP, acute on ckd, HIV, schizophrenia Interval history: Continues to reports odynophagia/dysphagia. No fever. Objective - Exam Narrative Exam: General appearance: Alert in NAD, conversant Eyes: anicteric sclerae, moist conjunctivae; no lid-lag; PERRLA HENT: Atraumatic; oropharynx clear with moist mucous membranes and no mucosal ulcerations/no oral thrush; normal hard and soft palate. Normal external ears. Neck: Trachea midline; supple, no thyromegaly or lymphadenopathy Lungs: CTA, with normal respiratory effort and no intercostal retractions CV: RRR, no murmurs Abdomen: Soft, non-tender; no masses or hepatosplenomegaly Extremities: No peripheral edema or extremity lymphadenopathy Skin: Normal temperature, turgor and texture; no rash, ulcers or subcutaneous nodules Psych: Appropriate affect, alert and oriented to person, place and time. Neuro: alert and oriented x 3. Moving all extermities - Constitutional Vitals: Vital Signs Temp Pulse Resp BP Pulse Ox 98.4 F 58 L 12 187/89 100 09/20/18 16:27 09/20/18 17:26 09/20/18 17:10 09/20/18 17:26 09/20/18 17:10 Temperature -Last 24 Hours Temperature 98.4 F Temperature 98.2 F Temperature 98.1 F Temperature 98.0 F Temperature 98.0 F Temperature 98.0 F - Labs CBC & Chem 7: 09/19/18 05:29 09/20/18 10:59 Labs: Abnormal lab results 09/18/18 09/20/18 09/20/18 Range/Units 17:21 05:44 10:59 PT 15.3 H (12.2-14.9) Sec. INR 1.24 H (0.87-1.13) Carbon Dioxide 21 L (22-30) mmol/L Urine Creatinine 58.9 H (0.1-20.0) mg/dL Urine Total Protein 149 H (5-11.8) mg/dL
[2018-09-20] MEDS ORDERED: APRESOLINE IV PRN (19:07)
[2018-09-20] MEDS ORDERED: ATROPINE IV PRN (19:08)
[2018-09-20] MEDS: TYLENOL PO PRN (20:06)
[2018-09-20] MEDS: DIFLUCAN PO SCH (20:07)
[2018-09-21] MEDS: APRESOLINE PO SCH ×3 (02:32→13:08)
[2018-09-21] MEDS: PERCOCET 5/325 PO PRN ×4 (04:18→22:05)
[2018-09-21] MEDS: TYLENOL PO PRN ×2 (08:16→19:56)
[2018-09-21] MEDS: MAGIC MOUTHWASH PO SCH ×3 (08:17→21:36)
[2018-09-21] MEDS: HEPARIN SUB-Q SCH ×2 (09:40→21:37)
[2018-09-21] MEDS: DIFLUCAN PO SCH (09:53)
[2018-09-21] MEDS: ZESTRIL PO SCH (09:53)
[2018-09-21] MEDS: HABITROL TD SCH (09:53)
[2018-09-21] MEDS: BABY ASPIRIN PO SCH (09:54)
[2018-09-21] MEDS: ALDACTONE PO SCH (09:54)
[2018-09-21] MEDS: COLACE PO SCH ×2 (09:54→21:39)
[2018-09-21] MEDS: PROTONIX IV SCH (09:54)
[2018-09-21] MEDS: SODIUM CHLORIDE FLUSH SYRINGE 10 ML IV SCH (09:55)
[2018-09-21] MEDS: NON-FORMULARY (Emtricitab/Rilpiviri/Tenof Ala [Odefsey Tablet] 1 EACH) PO SCH (09:55)
--- NOTE | 2018-09-21 11:35 | Progress Note ---
Assessment and Plan Impression * Acute kidney injury * Cardiomyopathy * Bladder mass * HIV disease * Schizophrenia * Hypertension * Hypokalemia * Proteinuria Recommendations * His renal function is stable. He is also currently nonoliguric. * He probably has some degree of underlying chronic kidney disease. Serum creatinine was 1.6 in September 2017. * His blood pressures under control. Patient is currently on Aldactone * Hypokalemia has been corrected * He will need urology evaluation for his bladder mass * Urine protein creatinine ratio is approximately 2.5 g/g. Continue TANO inhibitor for now Subjective Date of service: 09/21/18 Principal diagnosis: odynophagia, dysphagia, atypical CP, acute on ckd, HIV, schizophrenia Interval history: Patient is awake and alert. Appears comfortable. States that he is going to have a permanent pacemaker placed on Sunday. Denies any shortness of breath. Oxygen saturation 100% on room air Objective - Vital Signs Vital signs: Vital Signs - 12hr 09/20/18 09/20/18 09/20/18 23:34 23:41 23:51 Temperature 98.3 F Pulse Rate 63 63 Pulse Rate [ Apical] Respiratory 14 19 Rate Blood Pressure 143/57 143/57 O2 Sat by Pulse 99 98 Oximetry 09/21/18 09/21/18 09/21/18 00:00 00:01 00:11 Temperature Pulse Rate 39 L 64 Pulse Rate [ 58 L Apical] Respiratory 15 15 18 Rate Blood Pressure 151/60 151/60 O2 Sat by Pulse 100 98 100 Oximetry 09/21/18 09/21/18 09/21/18 00:21 00:31 00:41 Temperature Pulse Rate 55 L 63 40 L Pulse Rate [ Apical] Respiratory 14 16 18 Rate Blood Pressure 151/60 151/60 151/60 O2 Sat by Pulse 100 100 100 Oximetry 09/21/18 09/21/18 09/21/18 00:51 01:00 01:11 Temperature Pulse Rate 62 56 L 64 Pulse Rate [ Apical] Respiratory 13 16 17 Rate Blood Pressure 151/60 136/63 151/60 O2 Sat by Pulse 100 98 98 Oximetry 09/21/18 09/21/18 09/21/18 01:21 01:31 01:41 Temperature Pulse Rate 49 L 65 61 Pulse Rate [ Apical] Respiratory 13 17 16 Rate Blood Pressure 151/60 151/60 151/60 O2 Sat by Pulse 100 99 99 Oximetry 09/21/18 09/21/18 09/21/18 01:51 02:00 02:11 Temperature Pulse Rate 52 L 57 L 77 Pulse Rate [ Apical] Respiratory 14 16 16 Rate Blood Pressure 136/63 133/76 133/76 O2 Sat by Pulse 100 100 98 Oximetry 09/21/18 09/21/18 09/21/18 02:21 02:30 02:41 Temperature Pulse Rate 55 L 60 51 L Pulse Rate [ Apical] Respiratory 15 14 15 Rate Blood Pressure 133/76 133/76 133/76 O2 Sat by Pulse 100 100 100 Oximetry 09/21/18 09/21/18 09/21/18 02:51 03:01 03:11 Temperature Pulse Rate 52 L 52 L 58 L Pulse Rate [ Apical] Respiratory 17 17 15 Rate Blood Pressure 133/76 133/73 133/73 O2 Sat by Pulse 100 100 100 Oximetry 09/21/18 09/21/18 09/21/18 03:21 03:22 03:31 Temperature 98.4 F Pulse Rate 57 L 54 L Pulse Rate [ Apical] Respiratory 16 13 Rate Blood Pressure 133/73 133/73 O2 Sat by Pulse 100 100 Oximetry 09/21/18 09/21/18 09/21/18 03:41 03:51 04:00 Temperature Pulse Rate 45 L 52 L Pulse Rate [ 51 L Apical] Respiratory 17 17 15 Rate Blood Pressure 133/73 133/73 O2 Sat by Pulse 100 100 100 Oximetry 09/21/18 09/21/18 09/21/18 04:01 04:11 04:21 Temperature Pulse Rate 66 52 L 60 Pulse Rate [ Apical] Respiratory 15 13 14 Rate Blood Pressure 133/73 95/71 95/71 O2 Sat by Pulse 100 100 100 Oximetry 09/21/18 09/21/18 09/21/18 04:31 04:41 04:51 Temperature Pulse Rate 52 L 54 L 49 L Pulse Rate [ Apical] Respiratory 15 14 15 Rate Blood Pressure 95/71 95/71 95/71 O2 Sat by Pulse 100 100 100 Oximetry 09/21/18 09/21/18 09/21/18 05:00 05:01 05:11 Temperature Pulse Rate 58 L 46 L 47 L Pulse Rate [ Apical] Respiratory 16 19 Rate Blood Pressure 168/87 168/87 O2 Sat by Pulse 100 100 Oximetry 09/21/18 09/21/18 09/21/18 05:21 05:31 05:41 Temperature Pulse Rate 63 41 L 33 L Pulse Rate [ Apical] Respiratory 18 18 17 Rate Blood Pressure 168/87 168/87 168/87 O2 Sat by Pulse 100 100 100 Oximetry 09/21/18 09/21/18 09/21/18 05:51 06:01 06:11 Temperature Pulse Rate 53 L 55 L 31 L Pulse Rate [ Apical] Respiratory 17 17 15 Rate Blood Pressure 168/87 163/78 163/78 O2 Sat by Pulse 100 100 100 Oximetry 09/21/18 09/21/18 09/21/18 06:21 06:31 06:41 Temperature Pulse Rate 39 L 40 L 51 L Pulse Rate [ Apical] Respiratory 13 15 17 Rate Blood Pressure 163/78 163/78 163/78 O2 Sat by Pulse 100 100 100 Oximetry 09/21/18 09/21/18 09/21/18 06:51 07:01 07:11 Temperature Pulse Rate 35 L 58 L 53 L Pulse Rate [ Apical] Respiratory 17 13 17 Rate Blood Pressure 163/78 168/85 168/85 O2 Sat by Pulse 100 100 100 Oximetry 09/21/18 09/21/18 09/21/18 07:21 07:31 07:41 Temperature Pulse Rate 70 58 L 50 L Pulse Rate [ Apical] Respiratory 18 12 16 Rate Blood Pressure 168/85 168/85 168/85 O2 Sat by Pulse 100 100 100 Oximetry 09/21/18 09/21/18 09/21/18 07:51 08:00 08:01 Temperature 97.9 F Pulse Rate 65 52 L Pulse Rate [ 63 Apical] Respiratory 12 17 Rate Blood Pressure 168/85 168/70 O2 Sat by Pulse 100 100 100 Oximetry 09/21/18 09/21/18 09/21/18 08:11 08:16 08:21 Temperature Pulse Rate 58 L 58 L 70 Pulse Rate [ Apical] Respiratory 12 16 Rate Blood Pressure 168/70 168/70 168/70 O2 Sat by Pulse 100 100 Oximetry 09/21/18 09/21/18 09/21/18 08:29 08:31 08:41 Temperature 97.9 F Pulse Rate 51 L 82 Pulse Rate [ Apical] Respiratory 18 17 Rate Blood Pressure 168/70 168/70 O2 Sat by Pulse 100 100 Oximetry 09/21/18 09/21/18 09/21/18 08:51 09:01 09:11 Temperature Pulse Rate 76 77 57 L Pulse Rate [ Apical] Respiratory 16 10 L 18 Rate Blood Pressure 168/70 151/75 151/75 O2 Sat by Pulse 100 100 100 Oximetry 09/21/18 09/21/18 09/21/18 09:21 09:31 09:41 Temperature Pulse Rate 90 88 69 Pulse Rate [ Apical] Respiratory 17 25 H 16 Rate Blood Pressure 151/75 151/75 151/75 O2 Sat by Pulse 100 100 100 Oximetry 09/21/18 09/21/18 09/21/18 09:51 09:53 09:54 Temperature Pulse Rate 75 73 73 Pulse Rate [ Apical] Respiratory 16 Rate Blood Pressure 151/75 151/75 151/75 O2 Sat by Pulse 100 Oximetry 09/21/18 09/21/18 09/21/18 10:01 10:11 10:21 Temperature Pulse Rate 71 68 59 L Pulse Rate [ Apical] Respiratory 17 19 21 Rate Blood Pressure 151/75 151/75 151/75 O2 Sat by Pulse 100 100 100 Oximetry 09/21/18 10:31 Temperature Pulse Rate 52 L Pulse Rate [ Apical] Respiratory 21 Rate Blood Pressure 151/75 O2 Sat by Pulse 100 Oximetry - General Appearance General appearance: well-developed, well-nourished, appears stated age EENT: PERRL, mucous membranes moist Neck: no JVD, no thyromegaly, no carotid bruit, supple Respiratory: Present: Clear to Ascultation Cardiology: regular, normal heart rate, S1S2, no murmurs Gastrointestinal: normal, normoactive bowel sounds Integumentary: other (no edema) - Lab 09/19/18 05:29 09/20/18 10:59 Most recent lab results Calcium 9.5 mg/dL (8.4-10.2) 09/20/18 10:59 Phosphorus 4.90 mg/dL (2.5-4.5) H 09/17/18 17:34 Magnesium 1.80 mg/dL (1.7-2.3) 09/20/18 10:59 58.9 mg/dL (0.1-20.0) H 09/18/18 17:21 149 mg/dL (5-11.8) H 09/18/18 17:21 Medications & Allergies - Medications Allergies/Adverse Reactions: Allergies Lettuce Allergy (Uncoded 09/18/18 17:27) Unknown Home Medications: Home Medications Medication Instructions Recorded Confirmed Last Taken Type Emtricitab/Rilpiviri/Tenof Ala 1 each PO QAM 09/17/18 09/17/18 Unknown History [Odefsey Tablet] HYDROcodone/APAP 10-325 [Chambers 1 each PO Q6H PRN 09/17/18 09/17/18 Unknown History 10/325] Ibuprofen [Motrin] 800 mg PO BID PRN 09/17/18 09/17/18 Unknown History Lisinopril [Zestril TAB] 40 mg PO BID 09/17/18 09/17/18 Unknown History Active Medications: Generic Name Dose Route Start Last Admin Trade Name Freq PRN Reason Stop Dose Admin Acetaminophen 650 mg 09/17/18 19:57 09/21/18 08:16 Tylenol PO 650 mg Q4H PRN Administration Pain MILD(1-3)/Fever >100.5/HORNE Albuterol 2.5 mg 09/17/18 19:57 Proventil IH Q4HRT PRN Shortness Of Breath Aspirin 81 mg 09/18/18 10:00 09/21/18 09:54 Baby Aspirin PO 81 mg QDAY SKY Administration Atorvastatin Calcium 40 mg 09/17/18 22:00 09/20/18 22:08 Lipitor PO 40 mg QHS SKY Administration Atropine Sulfate 1 mg 09/20/18 19:08 Atropine IV ONCE PRN Bradycardia Docusate Sodium 100 mg 09/17/18 22:00 09/21/18 09:54 Colace PO 100 mg BID SKY Administration Fluconazole 200 mg 09/20/18 20:00 09/21/18 09:53 Diflucan PO 200 mg QDAY SKY Administration Heparin Sodium (Porcine) 5,000 unit 09/17/18 22:00 09/21/18 09:40 Heparin SUB-Q Not Given Q12HR SKY Hydralazine HCl 50 mg 09/20/18 12:00 09/21/18 08:16 Apresoline PO 50 mg Q6H SKY Administration Hydralazine HCl 10 mg 09/20/18 19:07 09/20/18 22:05 Apresoline IV 10 mg Q4HR PRN Administration Hypertension Lidocaine HCl 15 ml 09/18/18 14:00 09/21/18 08:17 Magic Mouthwash PO 15 ml TID SKY Administration Lisinopril 40 mg 09/21/18 10:00 09/21/18 09:53 Zestril PO 40 mg QDAY SKY Administration Miscellaneous Medication 1 each 09/18/18 10:00 09/21/18 09:55 Emtricitab/Rilpiviri/Tenof Ala [Odefsey Tablet] PO 1 each QAM SKY Administration Nicotine 14 mg 09/19/18 10:00 09/21/18 09:53 Habitrol TD 14 mg QDAY SKY Administration Nitroglycerin 0.4 mg 09/17/18 20:03 Nitrostat SL Q5M PRN Chest Pain Ondansetron HCl 4 mg 09/17/18 19:57 Zofran IV Q8H PRN Nausea And Vomiting Oxycodone/Acetaminophen 1 tab 09/17/18 19:57 09/21/18 10:41 Percocet 5/325 PO 1 tab Q6H PRN Administration Pain, Moderate (4-6) Pantoprazole Sodium 40 mg 09/19/18 18:00 09/21/18 09:54 Protonix IV 40 mg QDAY SKY Administration Sodium Chloride 10 ml 09/17/18 22:00 09/21/18 09:55 Sodium Chloride Flush Syringe 10 Ml IV 10 ml BID SKY Administration Sodium Chloride 10 ml 09/17/18 19:57 Sodium Chloride Flush Syringe 10 Ml IV PRN PRN LINE FLUSH Spironolactone 25 mg 09/19/18 10:00 09/21/18 09:54 Aldactone PO 25 mg QDAY SKY Administration
--- NOTE | 2018-09-21 11:43 | Progress Note ---
Assessment and Plan Assessment and plan: 61-year-old -Turkish male with history of COPD, MA, retention, HIV who presents [facility] with complaints of intermittent left-sided chest pain with radiation to left arm and the discomfort for the past 4 days. CXR showed hyperexpanded lungs chest of COPD. No acute cardiopulmonary abnormalities noted. Neck x-ray was unrevealing for acute abnormalities. He was found to be mildly hyponatremic with Na of 133. Elevated urine WBC at 12.0. Patient was initially scheduled for EGD, however patient had asymptomatic intermittent high degree heart block on the monitor,and EGD cancelled,[employer] adv transfer to ICU --Intermittent high degree heart block; patient is asymptomatic Cardiology following,EP evaluation and possible PPM placement on Sunday Atropine as needed --Dysphagia; odynophagia, supportive care, Magic mouthwash swish and swallow symptoms slightly improved Diet as tolerated, GI w/u as out pt On diflucan --Hyponatremia;, resolved --Hypokalemia; resolved --Acute on chronic renal failure; vasomotor nephropathy Closely monitor renal function, avoid nephrotoxins, Creatinine levels significantly improved --HIV; continue current management per ID Patient follows with [facility], --Severe malnutrition; nutrition supplements and supportive care Nutrition consult as needed --DVT prophylaxis; Lovenox Monitor closely and adjust management as needed Monitor in ICU per cardiology Critical care time 35 minutes The high probability of a clinically significant, sudden or life threatening deterioration of the [CVS,ID,Renal,Metabolic] system(s) required my full and direct attention, intervention and personal management. The aggregate critical care time was [35] minutes. This time is in addition to time spent performing reported procedures but includes the following: [x] Data Review and interpretation [x] Patient assessment and monitoring of vital signs [x] Documentation [x] Medication orders and management History Interval history: Patient seen in ICU ,medication list and chart reviewed No new episobes of cali cardia, Dysphagia slightly improved Patient wants something for his nerves Vital signs reviewed Hospitalist Physical - Constitutional Vitals: Temp Pulse Resp BP Pulse Ox 97.9 F 52 L 21 151/75 100 09/21/18 08:29 09/21/18 10:31 09/21/18 10:31 09/21/18 10:31 09/21/18 10:31 General appearance: Present: no acute distress, well-nourished - EENT Eyes: Present: PERRL, EOM intact - Neck Neck: Present: supple, normal ROM - Respiratory Respiratory effort: normal Respiratory: bilateral: diminished, negative: rales, rhonchi, wheezing - Cardiovascular Rhythm: regular Heart Sounds: Present: S1 & S2 - Extremities Extremities: no ischemia, No edema - Abdominal General gastrointestinal: soft, non-tender, non-distended, normal bowel sounds - Integumentary Integumentary: Present: clear, warm - Psychiatric Psychiatric: appropriate mood/affect, cooperative - Neurologic Neurologic: CNII-XII intact, moves all extremities Results - Labs CBC & Chem 7: 09/19/18 05:29 09/20/18 10:59 Labs: Laboratory Last Values WBC 5.2 K/mm3 (4.5-11.0) 09/19/18 05:29 RBC 3.52 M/mm3 (3.65-5.03) L 09/19/18 05:29 Hgb 11.7 gm/dl (11.8-15.2) L 09/19/18 05:29 Hct 34.6 % (35.5-45.6) L 09/19/18 05:29 MCV 98 fl (84-94) H 09/19/18 05:29 MCH 33 pg (28-32) H 09/19/18 05:29 MCHC 34 % (32-34) 09/19/18 05:29 RDW 14.2 % (13.2-15.2) 09/19/18 05:29 Plt Count 166 K/mm3 (140-440) 09/19/18 05:29 Lymph % (Auto) 33.2 % (13.4-35.0) 09/19/18 05:29 [place] % (Auto) 15.5 % (0.0-7.3) H 09/19/18 05:29 Eos % (Auto) 3.1 % (0.0-4.3) 09/19/18 05:29 Baso % (Auto) 0.5 % (0.0-1.8) 09/19/18 05:29 Lymph # 1.7 K/mm3 (1.2-5.4) 09/19/18 05:29 [place] # 0.8 K/mm3 (0.0-0.8) 09/19/18 05:29 Eos # 0.2 K/mm3 (0.0-0.4) 09/19/18 05:29 Baso # 0.0 K/mm3 (0.0-0.1) 09/19/18 05:29 Seg Neutrophils % 47.7 % (40.0-70.0) 09/19/18 05:29 Seg Neutrophils # 2.5 K/mm3 (1.8-7.7) 09/19/18 05:29 PT 15.3 Sec. (12.2-14.9) H 09/20/18 05:44 INR 1.24 (0.87-1.13) H 09/20/18 05:44 Sodium 138 mmol/L (137-145) 09/20/18 10:59 Potassium 4.3 mmol/L (3.6-5.0) D 09/20/18 10:59 Chloride 105.5 mmol/L (98-107) 09/20/18 10:59 Carbon Dioxide 21 mmol/L (22-30) L 09/20/18 10:59 16 mmol/L 09/20/18 10:59 BUN 19 mg/dL (9-20) 09/20/18 10:59 1.4 mg/dL (0.8-1.5) 09/20/18 10:59 Estimated GFR > 60 ml/min 09/20/18 10:59 14 % 09/20/18 10:59 Glucose 95 mg/dL (75-100) 09/20/18 10:59 POC Glucose 116 (70-105) H 09/20/18 21:33 8.1 mg/dL (3.5-7.6) H 09/18/18 05:04 Calcium 9.5 mg/dL (8.4-10.2) 09/20/18 10:59 Phosphorus 4.90 mg/dL (2.5-4.5) H 09/17/18 17:34 Magnesium 1.80 mg/dL (1.7-2.3) 09/20/18 10:59 0.20 mg/dL (0.1-1.2) 09/19/18 05:29 AST 11 units/L (5-40) 09/19/18 05:29 ALT 6 units/L (7-56) L 09/19/18 05:29 105 units/L (35-129) 09/19/18 05:29 < 0.010 ng/mL (0.00-0.029) 09/18/18 00:44 NT-Pro-B Natriuret Pep 636.1 pg/mL (0-900) 09/17/18 17:34 6.8 g/dL (6.3-8.2) 09/19/18 05:29 3.2 g/dL (3.9-5) L 09/19/18 05:29 0.9 % 09/19/18 05:29 Triglycerides 255 mg/dL (2-149) H 09/18/18 05:48 Cholesterol 146 mg/dL (50-199) 09/18/18 05:48 76 mg/dL (50-130) 09/18/18 05:48 18 mg/dL (40-59) L 09/18/18 05:48 8.11 % 09/18/18 05:48 TSH 0.920 mlU/mL (0.270-4.200) 09/20/18 05:44 Free T4 0.81 ng/dL (0.76-1.46) 09/20/18 05:44 Yellow (Yellow) 09/18/18 17:21 Clear (Clear) 09/18/18 17:21 6.0 (5.0-7.0) 09/18/18 17:21 Ur Specific Hawley 1.012 (1.003-1.030) 09/18/18 17:21 100 mg/dl mg/dL (Negative) 09/18/18 17:21 Neg mg/dL (Negative) 09/18/18 17:21 Neg mg/dL (Negative) 09/18/18 17:21 Neg (Negative) 09/18/18 17:21 Neg (Negative) 09/18/18 17:21 Neg (Negative) 09/18/18 17:21 < 2.0 mg/dL (<2.0) 09/18/18 17:21 Ur Leukocyte Esterase Neg (Negative) 09/18/18 17:21 1.0 /HPF (0.0-6.0) 09/18/18 17:21 1.0 /HPF (0.0-6.0) 09/18/18 17:21 58.9 mg/dL (0.1-20.0) H 09/18/18 17:21 149 mg/dL (5-11.8) H 09/18/18 17:21 Group A Strep Rapid Negative (Negative) 09/17/18 Unknown Active Medications - Current Medications Current Medications: Generic Name Dose Route Start Last Admin Trade Name Freq PRN Reason Stop Dose Admin Acetaminophen 650 mg 09/17/18 19:57 09/21/18 08:16 Tylenol PO 650 mg Q4H PRN Administration Pain MILD(1-3)/Fever >100.5/HORNE Albuterol 2.5 mg 09/17/18 19:57 Proventil IH Q4HRT PRN Shortness Of Breath Aspirin 81 mg 09/18/18 10:00 09/21/18 09:54 Baby Aspirin PO 81 mg QDAY SKY Administration Atorvastatin Calcium 40 mg 09/17/18 22:00 09/20/18 22:08 Lipitor PO 40 mg QHS SKY Administration Atropine Sulfate 1 mg 09/20/18 19:08 Atropine IV ONCE PRN Bradycardia Docusate Sodium 100 mg 09/17/18 22:00 09/21/18 09:54 Colace PO 100 mg BID SKY Administration Fluconazole 200 mg 09/20/18 20:00 09/21/18 09:53 Diflucan PO 200 mg QDAY SKY Administration Heparin Sodium (Porcine) 5,000 unit 09/17/18 22:00 09/21/18 09:40 Heparin SUB-Q Not Given Q12HR [facility] Hydralazine HCl 50 mg 09/20/18 12:00 09/21/18 08:16 Apresoline PO 50 mg Q6H SKY Administration Hydralazine HCl 10 mg 09/20/18 19:07 09/20/18 22:05 Apresoline IV 10 mg Q4HR PRN Administration Hypertension Lidocaine HCl 15 ml 09/18/18 14:00 09/21/18 08:17 Magic Mouthwash PO 15 ml TID SKY Administration Lisinopril 40 mg 09/21/18 10:00 09/21/18 09:53 Zestril PO 40 mg QDAY SKY Administration Miscellaneous Medication 1 each 09/18/18 10:00 09/21/18 09:55 Emtricitab/Rilpiviri/Tenof Ala [Odefsey Tablet] PO 1 each QAM SKY Administration Nicotine 14 mg 09/19/18 10:00 09/21/18 09:53 Habitrol TD 14 mg QDAY SKY Administration Nitroglycerin 0.4 mg 09/17/18 20:03 Nitrostat SL Q5M PRN Chest Pain Ondansetron HCl 4 mg 09/17/18 19:57 Zofran IV Q8H PRN Nausea And Vomiting Oxycodone/Acetaminophen 1 tab 09/17/18 19:57 09/21/18 10:41 Percocet 5/325 PO 1 tab Q6H PRN Administration Pain, Moderate (4-6) Pantoprazole Sodium 40 mg 09/19/18 18:00 09/21/18 09:54 Protonix IV 40 mg QDAY SKY Administration Sodium Chloride 10 ml 09/17/18 22:00 09/21/18 09:55 Sodium Chloride Flush Syringe 10 Ml IV 10 ml BID SKY Administration Sodium Chloride 10 ml 09/17/18 19:57 Sodium Chloride Flush Syringe 10 Ml IV PRN PRN LINE FLUSH Spironolactone 25 mg 09/19/18 10:00 09/21/18 09:54 Aldactone PO 25 mg QDAY SKY Administration Nutrition/Malnutrition Assess - Dietary Evaluation Nutrition/Malnutrition Findings: Nutrition Notes Start: 09/18/18 17:16 Freq: Status: Active Protocol: Document 09/20/18 19:14 RM (Rec: 09/20/18 19:19 [id number]) Nutrition Notes Initial or Follow up Reassessment Current Diagnosis COPD Other Pertinent Diagnosis UTI, HIV, Schizophrenia, Dysphagia,CP Current Diet Cardiac Labs/Tests Reviewed Pertinent Medications Reviewed Height 6 ft Weight 56.9 kg [place] Body Weight (kg) 80.90 BMI 16.9 Subjective/Other Information Pt moved to ICU. Pt stated that he eats all of his meals and drinks the Ensure Enlive. Pt requested softer diet d/t throat pain and some difficulty swallowing. Percent of energy/protein needs met: 100%/100% Burn Absent Trauma Absent #1 Nutrition Diagnosis Malnutrition Diagnosis Progress(for reassessment Continues documentation) Is patient on ventilator? No Is Patient Ambulatory and/or Out of Bed Yes REE-([place]-St. Jeor-ambulatory/OOB) [ 1822.600 NUTR.[id number]] Kcal/Kg value to use for calculation 41 Approximate Energy Requirements Using 2333 kcal/Kg Calculation Used for Recommendations Kcal/kg Additional Notes Protein Needs: 68-114g (1.2-2) Fluid Needs: 1 ml/kcal Nutrition Intervention Change Diet Order: Cardiac, Mech soft w/ground meat Add Supplement/Snack (indicate name/kcal Ensure Enlive Isabella TID /protein ) Provides kCal: 1,050 Provides Protein (gm) 60 Goal #1 Meet at least 75% of calorie and protein needs via PO and ONS intakes Goal #2 Wt gain/mainetenance Anticipated Discharge Needs: Cardiac diet Follow-Up By: 09/25/18 Additional Comments Follow for PO and ONS intakes
--- NOTE | 2018-09-21 11:44 | Gastroenterology Progress Note ---
Assessment and Plan GI: pt w/ resolved dysphagia/odynophagia - diet as tolerated - no need further GI intervention at this time - will sign off, call if needed Subjective Date of service: 09/21/18 Principal diagnosis: odynophagia, dysphagia, atypical CP, acute on ckd, HIV, schizophrenia Interval history: - per pt/nursing staff pt tolerated regular diet this am. Pt reports swallowing problem resolved Objective - Constitutional Vitals: Temp Pulse Resp BP Pulse Ox 97.9 F 52 L 21 151/75 100 09/21/18 08:29 09/21/18 10:31 09/21/18 10:31 09/21/18 10:31 09/21/18 10:31 General appearance: no acute distress - EENT Eyes: PERRL - Respiratory Respiratory: bilateral: CTA - Cardiovascular Rhythm: regular Heart Sounds: Present: S1 & S2 - Gastrointestinal General gastrointestinal: Present: soft, non-tender, non-distended - Labs CBC & Chem 7: 09/19/18 05:29 09/20/18 10:59 Labs: Laboratory Results - last 24 hr 09/20/18 09/20/18 10:59 21:33 Sodium 138 Potassium 4.3 D Chloride 105.5 Carbon Dioxide 21 L Anion Gap 16 BUN 19 Creatinine 1.4 Estimated GFR > 60 BUN/Creatinine Ratio 14 Glucose 95 POC Glucose 116 H Calcium 9.5 Magnesium 1.80
--- NOTE | 2018-09-21 12:36 | Progress Note ---
Assessment and Plan For PPM implantation on Sunday. - Patient Problems (1) High degree atrioventricular block Current Visit: Yes Status: Acute (2) Atypical chest pain Current Visit: Yes Status: Acute (3) Dysphagia Current Visit: Yes Status: Acute (4) Acute kidney injury superimposed on CKD Current Visit: Yes Status: Acute (5) Hypertension Current Visit: Yes Status: Chronic Qualifiers: Hypertension type: essential hypertension Qualified Code(s): I10 - Essential (primary) hypertension (6) COPD (chronic obstructive pulmonary disease) Current Visit: Yes Status: Chronic (7) HIV antibody positive Current Visit: Yes Status: Chronic (8) Schizophrenia Current Visit: Yes Status: Chronic Subjective Date of service: 09/21/18 Principal diagnosis: odynophagia, dysphagia, atypical CP, acute on ckd, HIV, schizophrenia Interval history: No complaint. Objective Vital Signs Last Vital Signs Temp 97.9 F 09/21/18 08:29 Pulse 52 L 09/21/18 10:31 Resp 21 09/21/18 10:31 BP 151/75 09/21/18 10:31 Pulse Ox 100 09/21/18 10:31 - Physical Examination General: No Apparent Distress HEENT: Positive: EOMI, Normocephaly, Mucus Membranes Moist Neck: Positive: neck supple, trachea midline Cardiac: Positive: Reg Rate and Rhythm, S1/S2 Lungs: Positive: clear to auscultation Neuro: Positive: Grossly Intact Abdomen: Positive: Soft, Active Bowel Sounds. Negative: Tender Skin: Positive: Clear. Negative: Rash Musculoskeletal: Normal Range of Motion Extremities: Present: normal. Absent: edema - Imaging and Cardiology EKG: image reviewed - Telemetry EKG Rhythm: Sinus Bradycardia AV and intraventricular conduction: 2 to 1 AV block
[2018-09-21] MEDS ORDERED: XANAX PO ONE (16:19)
[2018-09-22] MEDS: PERCOCET 5/325 PO PRN ×3 (06:05→20:49)
[2018-09-22] MEDS: APRESOLINE PO SCH ×3 (06:07→21:03)
[2018-09-22] MEDS: SODIUM CHLORIDE FLUSH SYRINGE 10 ML IV SCH ×3 (06:08→21:04)
[2018-09-22] MEDS ORDERED: ATROPINE 0.1% (CARDIAC) ONE (07:49)
--- NOTE | 2018-09-22 07:54 | Progress Note ---
Assessment and Plan Assessment and plan: 61-year-old -[place] male with history of COPD, HI, retention, HIV who presents [facility] with complaints of intermittent left-sided chest pain with radiation to left arm and the discomfort for the past 4 days. CXR showed hyperexpanded lungs chest of COPD. No acute cardiopulmonary abnormalities noted. Neck x-ray was unrevealing for acute abnormalities. He was found to be mildly hyponatremic with Na of 133. Elevated urine WBC at 12.0. Patient was initially scheduled for EGD, however patient had asymptomatic intermittent high degree heart block on the monitor,and EGD cancelled,Litigation Legal Secretary adv transfer to ICU, pending EP evaluation and placement of PPM tomorrow --High degree heart block[Intermittent]; patient is asymptomatic Cardiology following,EP evaluation and possible PPM placement tomorrow Atropine as needed,NPO mid night --Dysphagia; odynophagia, supportive care, Magic mouthwash swish and swallow symptoms slightly improved Diet as tolerated, EGD cancelled due to heart block. GI w/u as out pt , continue diflucan --Hyponatremia/ Hypokalemia; resolved --Acute on chronic renal failure; vasomotor nephropathy Closely monitor renal function, avoid nephrotoxins, Creatinine levels significantly improved, back to baseline --HIV; continue current management per ID Patient follows with [facility], --Severe malnutrition; nutrition supplements and supportive care Nutrition consult as needed --DVT prophylaxis; Lovenox Monitor closely and adjust management as needed Monitor in ICU per cardiology Critical care time 32 minutes The high probability of a clinically significant, sudden or life threatening deterioration of the [CVS,ID,Metabolic ,renal, respiratory] system(s) required my full and direct attention, intervention and personal management. The aggregate critical care time was [32] minutes. This time is in addition to time spent performing ,reported procedures but includes the following: [x] Data Review and interpretation [x] Patient assessment and monitoring of vital signs [x] Documentation [x] Medication orders and management Plan of care is reviewed with the patient and his nurse History Interval history: Patient seen and examined Patient complains of some anxiety, on antianxiety medication Comfortable not in acute distress Vital signs noted Hospitalist Physical - Constitutional Vitals: Temp Pulse Resp BP Pulse Ox 98.3 F 64 16 148/82 99 09/22/18 03:44 09/22/18 07:01 07/21/19 04:00 09/22/18 07:01 09/22/18 07:01 General appearance: Present: no acute distress, well-nourished - EENT Eyes: Present: PERRL, EOM intact ENT: hearing intact, clear oral mucosa, dentition normal, hearing decreased - Neck Neck: Present: supple, normal ROM - Respiratory Respiratory effort: normal Respiratory: bilateral: diminished, rhonchi, wheezing, negative: rales - Cardiovascular Rhythm: regular Heart Sounds: Present: S1 & S2 - Extremities Extremities: no ischemia, pulses intact Peripheral Pulses: within normal limits - Abdominal General gastrointestinal: soft, non-tender, non-distended, normal bowel sounds - Integumentary Integumentary: Present: clear, warm - Psychiatric Psychiatric: appropriate mood/affect, cooperative - Neurologic Neurologic: CNII-XII intact, moves all extremities Results - Labs CBC & Chem 7: 09/19/18 05:29 09/20/18 10:59 Labs: Laboratory Last Values WBC 5.2 K/mm3 (4.5-11.0) 09/19/18 05:29 RBC 3.52 M/mm3 (3.65-5.03) L 09/19/18 05:29 Hgb 11.7 gm/dl (11.8-15.2) L 09/19/18 05:29 Hct 34.6 % (35.5-45.6) L 09/19/18 05:29 MCV 98 fl (84-94) H 09/19/18 05:29 MCH 33 pg (28-32) H 09/19/18 05:29 MCHC 34 % (32-34) 09/19/18 05:29 RDW 14.2 % (13.2-15.2) 09/19/18 05:29 Plt Count 166 K/mm3 (140-440) 09/19/18 05:29 Lymph % (Auto) 33.2 % (13.4-35.0) 09/19/18 05:29 Ceiba % (Auto) 15.5 % (0.0-7.3) H 09/19/18 05:29 Eos % (Auto) 3.1 % (0.0-4.3) 09/19/18 05:29 Baso % (Auto) 0.5 % (0.0-1.8) 09/19/18 05:29 Lymph # 1.7 K/mm3 (1.2-5.4) 09/19/18 05:29 Ceiba # 0.8 K/mm3 (0.0-0.8) 09/19/18 05:29 Eos # 0.2 K/mm3 (0.0-0.4) 09/19/18 05:29 Baso # 0.0 K/mm3 (0.0-0.1) 09/19/18 05:29 Seg Neutrophils % 47.7 % (40.0-70.0) 09/19/18 05:29 Seg Neutrophils # 2.5 K/mm3 (1.8-7.7) 09/19/18 05:29 PT 15.3 Sec. (12.2-14.9) H 09/20/18 05:44 INR 1.24 (0.87-1.13) H 09/20/18 05:44 Sodium 138 mmol/L (137-145) 09/20/18 10:59 Potassium 4.3 mmol/L (3.6-5.0) D 09/20/18 10:59 Chloride 105.5 mmol/L (98-107) 09/20/18 10:59 Carbon Dioxide 21 mmol/L (22-30) L 09/20/18 10:59 16 mmol/L 09/20/18 10:59 BUN 19 mg/dL (9-20) 09/20/18 10:59 1.4 mg/dL (0.8-1.5) 09/20/18 10:59 Estimated GFR > 60 ml/min 09/20/18 10:59 14 % 09/20/18 10:59 Glucose 95 mg/dL (75-100) 09/20/18 10:59 POC Glucose 128 (70-105) H 09/22/18 05:17 8.1 mg/dL (3.5-7.6) H 09/18/18 05:04 Calcium 9.5 mg/dL (8.4-10.2) 09/20/18 10:59 Phosphorus 4.90 mg/dL (2.5-4.5) H 09/17/18 17:34 Magnesium 1.80 mg/dL (1.7-2.3) 09/20/18 10:59 0.20 mg/dL (0.1-1.2) 09/19/18 05:29 AST 11 units/L (5-40) 09/19/18 05:29 ALT 6 units/L (7-56) L 09/19/18 05:29 105 units/L (35-129) 09/19/18 05:29 < 0.010 ng/mL (0.00-0.029) 09/18/18 00:44 NT-Pro-B Natriuret Pep 636.1 pg/mL (0-900) 09/17/18 17:34 6.8 g/dL (6.3-8.2) 09/19/18 05:29 3.2 g/dL (3.9-5) L 09/19/18 05:29 0.9 % 09/19/18 05:29 Triglycerides 255 mg/dL (2-149) H 09/18/18 05:48 Cholesterol 146 mg/dL (50-199) 09/18/18 05:48 76 mg/dL (50-130) 09/18/18 05:48 18 mg/dL (40-59) L 09/18/18 05:48 8.11 % 09/18/18 05:48 TSH 0.920 mlU/mL (0.270-4.200) 09/20/18 05:44 Free T4 0.81 ng/dL (0.76-1.46) 09/20/18 05:44 Yellow (Yellow) 09/18/18 17:21 Clear (Clear) 09/18/18 17:21 6.0 (5.0-7.0) 09/18/18 17:21 Ur Specific Simms 1.012 (1.003-1.030) 09/18/18 17:21 100 mg/dl mg/dL (Negative) 09/18/18 17:21 Neg mg/dL (Negative) 09/18/18 17:21 Neg mg/dL (Negative) 09/18/18 17:21 Neg (Negative) 09/18/18 17:21 Neg (Negative) 09/18/18 17:21 Neg (Negative) 09/18/18 17:21 < 2.0 mg/dL (<2.0) 09/18/18 17:21 Ur Leukocyte Esterase Neg (Negative) 09/18/18 17:21 1.0 /HPF (0.0-6.0) 09/18/18 17:21 1.0 /HPF (0.0-6.0) 09/18/18 17:21 58.9 mg/dL (0.1-20.0) H 09/18/18 17:21 149 mg/dL (5-11.8) H 09/18/18 17:21 Group A Strep Rapid Negative (Negative) 09/17/18 Unknown Active Medications - Current Medications Current Medications: Generic Name Dose Route Start Last Admin Trade Name Freq PRN Reason Stop Dose Admin Acetaminophen 650 mg 09/17/18 19:57 09/21/18 19:56 Tylenol PO 650 mg Q4H PRN Administration Pain MILD(1-3)/Fever >100.5/HORNE Albuterol 2.5 mg 09/17/18 19:57 Proventil IH Q4HRT PRN Shortness Of Breath Alprazolam 0.5 mg 09/21/18 16:19 Xanax PO Q8H PRN Anxiety Aspirin 81 mg 09/18/18 10:00 09/21/18 09:54 Baby Aspirin PO 81 mg QDAY SKY Administration Atorvastatin Calcium 40 mg 09/17/18 22:00 09/21/18 21:38 Lipitor PO 40 mg QHS SKY Administration Atropine Sulfate 1 mg 09/22/18 08:00 Atropine 0.1% (Cardiac) IV ONCE PRN Bradycardia Docusate Sodium 100 mg 09/17/18 22:00 09/21/18 21:39 Colace PO 100 mg BID SKY Administration Fluconazole 200 mg 09/20/18 20:00 09/21/18 09:53 Diflucan PO 200 mg QDAY SKY Administration Heparin Sodium (Porcine) 5,000 unit 09/17/18 22:00 09/21/18 21:37 Heparin SUB-Q 5,000 unit Q12HR SKY Administration Hydralazine HCl 100 mg 09/21/18 13:00 09/22/18 06:07 Apresoline PO 100 mg Q8H SKY Administration Lidocaine HCl 15 ml 09/18/18 14:00 09/21/18 21:36 Magic Mouthwash PO 15 ml TID SKY Administration Lisinopril 40 mg 09/21/18 10:00 09/21/18 09:53 Zestril PO 40 mg QDAY SKY Administration Miscellaneous Medication 1 each 09/18/18 10:00 09/21/18 09:55 Emtricitab/Rilpiviri/Tenof Ala [Odefsey Tablet] PO 1 each QAM SKY Administration Nicotine 14 mg 09/19/18 10:00 09/21/18 09:53 Habitrol TD 14 mg QDAY SKY Administration Nitroglycerin 0.4 mg 09/17/18 20:03 Nitrostat SL Q5M PRN Chest Pain Ondansetron HCl 4 mg 09/17/18 19:57 Zofran IV Q8H PRN Nausea And Vomiting Oxycodone/Acetaminophen 1 tab 09/17/18 19:57 09/22/18 06:05 Percocet 5/325 PO 1 tab Q6H PRN Administration Pain, Moderate (4-6) Pantoprazole Sodium 40 mg 09/19/18 18:00 09/21/18 09:54 Protonix IV 40 mg QDAY SKY Administration Sodium Chloride 10 ml 09/17/18 22:00 09/22/18 06:08 Sodium Chloride Flush Syringe 10 Ml IV 10 ml BID SKY Administration Sodium Chloride 10 ml 09/17/18 19:57 Sodium Chloride Flush Syringe 10 Ml IV PRN PRN LINE FLUSH Spironolactone 25 mg 09/19/18 10:00 09/21/18 09:54 Aldactone PO 25 mg QDAY SKY Administration Nutrition/Malnutrition Assess - Dietary Evaluation Nutrition/Malnutrition Findings: Nutrition Notes Start: 09/18/18 17:16 Freq: Status: Active Protocol: Document 09/20/18 19:14 RM (Rec: 09/20/18 19:19 [email or web address]) Nutrition Notes Initial or Follow up Reassessment Current Diagnosis COPD Other Pertinent Diagnosis UTI, HIV, Schizophrenia, Dysphagia,CP Current Diet Cardiac Labs/Tests Reviewed Pertinent Medications Reviewed Height 6 ft Weight 56.9 kg [place] Body Weight (kg) 80.90 BMI 16.9 Subjective/Other Information Pt moved to ICU. Pt stated that he eats all of his meals and drinks the Ensure Enlive. Pt requested softer diet d/t throat pain and some difficulty swallowing. Percent of energy/protein needs met: 100%/100% Burn Absent Trauma Absent #1 Nutrition Diagnosis Malnutrition Diagnosis Progress(for reassessment Continues documentation) Is patient on ventilator? No Is Patient Ambulatory and/or Out of Bed Yes REE-([place]-St. Jeor-ambulatory/OOB) [ 1822.600 NUTR.MSJOOB] Kcal/Kg value to use for calculation 41 Approximate Energy Requirements Using 2333 kcal/Kg Calculation Used for Recommendations Kcal/kg Additional Notes Protein Needs: 68-114g (1.2-2) Fluid Needs: 1 ml/kcal Nutrition Intervention Change Diet Order: Cardiac, Mech soft w/ground meat Add Supplement/Snack (indicate name/kcal Ensure Enlive [place] TID /protein ) Provides kCal: 1,050 Provides Protein (gm) 60 Goal #1 Meet at least 75% of calorie and protein needs via PO and ONS intakes Goal #2 Wt gain/mainetenance Anticipated Discharge Needs: Cardiac diet Follow-Up By: 09/25/18 Additional Comments Follow for PO and ONS intakes
[2018-09-22] MEDS ORDERED: ATROPINE 0.1% (CARDIAC) IV PRN (08:00)
[2018-09-22] MEDS ORDERED: ATROPINE 0.1% (CARDIAC) IV ONE (08:00)
[2018-09-22] MEDS: XANAX PO PRN ×3 (08:03→22:28)
[2018-09-22] MEDS: MAGIC MOUTHWASH PO SCH ×3 (08:50→21:03)
[2018-09-22] MEDS: PROTONIX IV SCH (09:30)
[2018-09-22] MEDS: ALDACTONE PO SCH (09:30)
[2018-09-22] MEDS: COLACE PO SCH ×2 (09:31→21:03)
[2018-09-22] MEDS: HABITROL TD SCH (09:31)
[2018-09-22] MEDS: ZESTRIL PO SCH (09:31)
[2018-09-22] MEDS: BABY ASPIRIN PO SCH (09:31)
[2018-09-22] MEDS: HEPARIN SUB-Q SCH ×2 (09:32→21:00)
[2018-09-22] MEDS: DIFLUCAN PO SCH (09:34)
[2018-09-22] MEDS: NON-FORMULARY (Emtricitab/Rilpiviri/Tenof Ala [Odefsey Tablet] 1 EACH) PO SCH (09:34)
--- NOTE | 2018-09-22 12:11 | Progress Note ---
Assessment and Plan 62 y/o with newly diagnosed High Grade AV block. per cards note PPM placment tomorrow Continue cardiac monitoring Atropine at bedside NPO after midnight. 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 Subjective Date of service: 09/22/18 Principal diagnosis: odynophagia, dysphagia, atypical CP, acute on ckd, HIV, schizophrenia Interval history: No acute events. No major cardiac events last night. He did drop into the 30's while sleeping. Asymptomatic with normal blood pressure. No family present and the remainder is negative. Objective - Constitutional Vitals: Vital Signs - 12hr 09/22/18 09/22/18 09/22/18 00:11 00:21 00:31 Temperature Pulse Rate 59 L 61 61 Pulse Rate [ Apical] Respiratory Rate Blood Pressure 127/72 152/82 152/82 O2 Sat by Pulse 100 100 98 Oximetry 09/22/18 09/22/18 09/22/18 00:41 00:51 01:00 Temperature Pulse Rate 61 73 67 Pulse Rate [ Apical] Respiratory Rate Blood Pressure 152/82 152/82 125/74 O2 Sat by Pulse 98 99 99 Oximetry 09/22/18 09/22/18 09/22/18 01:11 01:21 01:31 Temperature Pulse Rate 68 64 65 Pulse Rate [ Apical] Respiratory Rate Blood Pressure 125/74 127/72 127/72 O2 Sat by Pulse 98 98 99 Oximetry 09/22/18 09/22/18 09/22/18 01:41 01:51 02:00 Temperature Pulse Rate 60 60 62 Pulse Rate [ Apical] Respiratory Rate Blood Pressure 127/72 127/72 118/64 O2 Sat by Pulse 100 100 100 Oximetry 09/22/18 09/22/18 09/22/18 02:11 02:21 02:31 Temperature Pulse Rate 64 61 63 Pulse Rate [ Apical] Respiratory Rate Blood Pressure 118/64 125/74 125/74 O2 Sat by Pulse 99 99 99 Oximetry 09/22/18 09/22/18 09/22/18 02:40 02:51 03:00 Temperature Pulse Rate 62 63 63 Pulse Rate [ Apical] Respiratory Rate Blood Pressure 118/64 125/74 114/61 O2 Sat by Pulse 99 100 100 Oximetry 09/22/18 09/22/18 09/22/18 03:11 03:21 03:31 Temperature Pulse Rate 82 53 L 56 L Pulse Rate [ Apical] Respiratory Rate Blood Pressure 114/61 118/64 118/64 O2 Sat by Pulse 100 100 100 Oximetry 09/22/18 09/22/18 09/22/18 03:41 03:44 03:51 Temperature 98.3 F Pulse Rate 59 L 59 L Pulse Rate [ Apical] Respiratory Rate Blood Pressure 118/64 114/61 O2 Sat by Pulse 100 100 Oximetry 09/22/18 09/22/18 09/22/18 04:00 04:01 04:11 Temperature Pulse Rate 64 64 Pulse Rate [ 75 Apical] Respiratory 16 Rate Blood Pressure 140/79 140/79 O2 Sat by Pulse 100 97 97 Oximetry 09/22/18 09/22/18 09/22/18 04:21 04:31 04:41 Temperature Pulse Rate 52 L 54 L 59 L Pulse Rate [ Apical] Respiratory Rate Blood Pressure 140/79 140/79 140/79 O2 Sat by Pulse 99 99 98 Oximetry 09/22/18 09/22/18 09/22/18 04:51 05:00 05:11 Temperature Pulse Rate 61 60 57 L Pulse Rate [ Apical] Respiratory Rate Blood Pressure 140/79 140/79 134/75 O2 Sat by Pulse 97 98 99 Oximetry 09/22/18 09/22/18 09/22/18 05:21 05:31 05:40 Temperature Pulse Rate 59 L 59 L 58 L Pulse Rate [ Apical] Respiratory Rate Blood Pressure 134/75 134/75 134/75 O2 Sat by Pulse 97 97 98 Oximetry 09/22/18 09/22/18 09/22/18 05:51 06:01 06:07 Temperature Pulse Rate 69 62 86 Pulse Rate [ Apical] Respiratory Rate Blood Pressure 134/75 144/81 144/81 O2 Sat by Pulse 100 99 Oximetry 09/22/18 09/22/18 09/22/18 06:11 06:21 06:31 Temperature Pulse Rate 55 L 53 L 52 L Pulse Rate [ Apical] Respiratory Rate Blood Pressure 144/81 144/81 144/81 O2 Sat by Pulse 100 100 100 Oximetry 09/22/18 09/22/18 09/22/18 06:41 06:51 07:01 Temperature Pulse Rate 58 L 60 64 Pulse Rate [ Apical] Respiratory Rate Blood Pressure 144/81 144/81 148/82 O2 Sat by Pulse 100 100 99 Oximetry 09/22/18 09/22/18 09/22/18 07:11 07:21 07:31 Temperature Pulse Rate 66 62 49 L Pulse Rate [ Apical] Respiratory Rate Blood Pressure 148/82 148/82 148/82 O2 Sat by Pulse 99 99 100 Oximetry 09/22/18 09/22/18 09/22/18 07:41 07:51 08:00 Temperature 97.6 F Pulse Rate 51 L 40 L 64 Pulse Rate [ 75 Apical] Respiratory 16 Rate Blood Pressure 148/82 148/82 139/74 O2 Sat by Pulse 99 100 100 Oximetry 09/22/18 09/22/18 09/22/18 08:11 08:21 08:31 Temperature Pulse Rate 49 L 53 L 77 Pulse Rate [ Apical] Respiratory Rate Blood Pressure 139/74 139/74 139/74 O2 Sat by Pulse 100 100 99 Oximetry 09/22/18 09/22/18 09/22/18 08:41 08:51 09:00 Temperature Pulse Rate 78 75 77 Pulse Rate [ Apical] Respiratory Rate Blood Pressure 139/74 139/74 140/84 O2 Sat by Pulse 99 98 98 Oximetry 09/22/18 09/22/18 09/22/18 09:11 09:21 09:30 Temperature Pulse Rate 80 78 79 Pulse Rate [ Apical] Respiratory Rate Blood Pressure 140/84 140/84 140/84 O2 Sat by Pulse 99 98 Oximetry 09/22/18 09/22/18 09/22/18 09:31 09:41 09:51 Temperature Pulse Rate 76 77 68 Pulse Rate [ Apical] Respiratory Rate Blood Pressure 140/84 140/84 140/84 O2 Sat by Pulse 99 98 100 Oximetry 09/22/18 09/22/18 09/22/18 10:00 10:11 10:21 Temperature Pulse Rate 117 H 88 80 Pulse Rate [ Apical] Respiratory Rate Blood Pressure 139/85 139/85 139/85 O2 Sat by Pulse 100 100 100 Oximetry 09/22/18 10:31 Temperature Pulse Rate 73 Pulse Rate [ Apical] Respiratory Rate Blood Pressure 139/85 O2 Sat by Pulse 99 Oximetry General appearance: Present: no acute distress, well-nourished - EENT Eyes: PERRL, EOM intact ENT: hearing intact - Neck Neck: supple, normal ROM - Respiratory Respiratory effort: normal Respiratory: bilateral: CTA - Breasts Breasts: deferred - Cardiovascular Rhythm: regular Heart Sounds: Present: S1 & S2 Extremities: no ischemia, No edema - Gastrointestinal General gastrointestinal: Present: soft, non-tender, normal bowel sounds Rectal Exam: deferred - Genitourinary Male genitourinary: deferred - Labs CBC & Chem 7: 09/19/18 05:29 09/20/18 10:59 Labs: Abnormal lab results 09/21/18 09/22/18 09/22/18 Range/Units 22:02 02:01 05:17 POC Glucose 158 H 128 H 128 H (70-105) Medications & Allergies - Medications Allergies/Adverse Reactions: Allergies Lettuce Allergy (Uncoded 09/18/18 17:27) Unknown Home Medications: Home Medications Medication Instructions Recorded Confirmed Last Taken Type Emtricitab/Rilpiviri/Tenof Ala 1 each PO QAM 09/17/18 09/17/18 Unknown History [Odefsey Tablet] HYDROcodone/APAP 10-325 [[place] 1 each PO Q6H PRN 09/17/18 09/17/18 Unknown History 10/325] Ibuprofen [Motrin] 800 mg PO BID PRN 09/17/18 09/17/18 Unknown History Lisinopril [Zestril TAB] 40 mg PO BID 09/17/18 09/17/18 Unknown History Active Medications: Generic Name Dose Route Start Last Admin Trade Name Freq PRN Reason Stop Dose Admin Acetaminophen 650 mg 09/17/18 19:57 09/21/18 19:56 Tylenol PO 650 mg Q4H PRN Administration Pain MILD(1-3)/Fever >100.5/HORNE Albuterol 2.5 mg 09/17/18 19:57 Proventil IH Q4HRT PRN Shortness Of Breath Alprazolam 0.5 mg 09/21/18 16:19 09/22/18 08:03 Xanax PO 0.5 mg Q8H PRN Administration Anxiety Aspirin 81 mg 09/18/18 10:00 09/22/18 09:31 Baby Aspirin PO 81 mg QDAY SKY Administration Atorvastatin Calcium 40 mg 09/17/18 22:00 09/21/18 21:38 Lipitor PO 40 mg QHS SKY Administration Atropine Sulfate 1 mg 09/22/18 08:00 09/22/18 08:20 Atropine 0.1% (Cardiac) IV 1 mg ONCE PRN Administration Bradycardia Docusate Sodium 100 mg 09/17/18 22:00 09/22/18 09:31 Colace PO 100 mg BID SKY Administration Fluconazole 200 mg 09/20/18 20:00 09/22/18 09:34 Diflucan PO 200 mg QDAY SKY Administration Heparin Sodium (Porcine) 5,000 unit 09/17/18 22:00 09/22/18 09:32 Heparin SUB-Q 5,000 unit Q12HR SKY Administration Hydralazine HCl 100 mg 09/21/18 13:00 09/22/18 06:07 Apresoline PO 100 mg Q8H SKY Administration Lidocaine HCl 15 ml 09/18/18 14:00 09/22/18 08:50 Magic Mouthwash PO 15 ml TID SKY Administration Lisinopril 40 mg 09/21/18 10:00 09/22/18 09:31 Zestril PO 40 mg QDAY SKY Administration Miscellaneous Medication 1 each 09/18/18 10:00 09/22/18 09:34 Emtricitab/Rilpiviri/Tenof Ala [Odefsey Tablet] PO 1 each QAM SKY Administration Nicotine 14 mg 09/19/18 10:00 09/22/18 09:31 Habitrol TD 14 mg QDAY SKY Administration Nitroglycerin 0.4 mg 09/17/18 20:03 Nitrostat SL Q5M PRN Chest Pain Ondansetron HCl 4 mg 09/17/18 19:57 Zofran IV Q8H PRN Nausea And Vomiting Oxycodone/Acetaminophen 1 tab 09/17/18 19:57 09/22/18 11:54 Percocet 5/325 PO 1 tab Q6H PRN Administration Pain, Moderate (4-6) Pantoprazole Sodium 40 mg 09/19/18 18:00 09/22/18 09:30 Protonix IV 40 mg QDAY SKY Administration Sodium Chloride 10 ml 09/17/18 22:00 09/22/18 09:32 Sodium Chloride Flush Syringe 10 Ml IV 10 ml BID SKY Administration Sodium Chloride 10 ml 09/17/18 19:57 Sodium Chloride Flush Syringe 10 Ml IV PRN PRN LINE FLUSH Spironolactone 25 mg 09/19/18 10:00 09/22/18 09:30 Aldactone PO 25 mg QDAY SKY Administration
--- NOTE | 2018-09-22 12:28 | Progress Note ---
Assessment and Plan Impression * Acute kidney injury * Cardiomyopathy * Bladder mass * HIV disease * Schizophrenia * Hypertension * Hypokalemia * Proteinuria Recommendations * His renal function is stable. He is also currently nonoliguric. * He probably has some degree of underlying chronic kidney disease. Serum creatinine was 1.6 in September 2017. * His blood pressures under control. Patient is currently on Aldactone * Hypokalemia has been corrected * He will need urology evaluation for his bladder mass * Urine protein creatinine ratio is approximately 2.5 g/g. Continue TANO inhibitor for now * Check BMP in the morning Subjective Date of service: 09/22/18 Principal diagnosis: odynophagia, dysphagia, atypical CP, acute on ckd, HIV, schizophrenia Interval history: Patient is awake and alert. Appears comfortable. States that he is going to have a permanent pacemaker placed on Sunday. Denies any shortness of breath. Oxygen saturation 100% on room air Objective - Vital Signs Vital signs: Vital Signs - 12hr 09/22/18 09/22/18 09/22/18 00:31 00:41 00:51 Temperature Pulse Rate 61 61 73 Pulse Rate [ Apical] Respiratory Rate Blood Pressure 152/82 152/82 152/82 O2 Sat by Pulse 98 98 99 Oximetry 09/22/18 09/22/18 09/22/18 01:00 01:11 01:21 Temperature Pulse Rate 67 68 64 Pulse Rate [ Apical] Respiratory Rate Blood Pressure 125/74 125/74 127/72 O2 Sat by Pulse 99 98 98 Oximetry 09/22/18 09/22/18 09/22/18 01:31 01:41 01:51 Temperature Pulse Rate 65 60 60 Pulse Rate [ Apical] Respiratory Rate Blood Pressure 127/72 127/72 127/72 O2 Sat by Pulse 99 100 100 Oximetry 09/22/18 09/22/18 09/22/18 02:00 02:11 02:21 Temperature Pulse Rate 62 64 61 Pulse Rate [ Apical] Respiratory Rate Blood Pressure 118/64 118/64 125/74 O2 Sat by Pulse 100 99 99 Oximetry 09/22/18 09/22/18 09/22/18 02:31 02:40 02:51 Temperature Pulse Rate 63 62 63 Pulse Rate [ Apical] Respiratory Rate Blood Pressure 125/74 118/64 125/74 O2 Sat by Pulse 99 99 100 Oximetry 09/22/18 09/22/18 09/22/18 03:00 03:11 03:21 Temperature Pulse Rate 63 82 53 L Pulse Rate [ Apical] Respiratory Rate Blood Pressure 114/61 114/61 118/64 O2 Sat by Pulse 100 100 100 Oximetry 09/22/18 09/22/18 09/22/18 03:31 03:41 03:44 Temperature 98.3 F Pulse Rate 56 L 59 L Pulse Rate [ Apical] Respiratory Rate Blood Pressure 118/64 118/64 O2 Sat by Pulse 100 100 Oximetry 09/22/18 09/22/18 09/22/18 03:51 04:00 04:01 Temperature Pulse Rate 59 L 64 Pulse Rate [ 75 Apical] Respiratory 16 Rate Blood Pressure 114/61 140/79 O2 Sat by Pulse 100 100 97 Oximetry 09/22/18 09/22/18 09/22/18 04:11 04:21 04:31 Temperature Pulse Rate 64 52 L 54 L Pulse Rate [ Apical] Respiratory Rate Blood Pressure 140/79 140/79 140/79 O2 Sat by Pulse 97 99 99 Oximetry 09/22/18 09/22/18 09/22/18 04:41 04:51 05:00 Temperature Pulse Rate 59 L 61 60 Pulse Rate [ Apical] Respiratory Rate Blood Pressure 140/79 140/79 140/79 O2 Sat by Pulse 98 97 98 Oximetry 09/22/18 09/22/18 09/22/18 05:11 05:21 05:31 Temperature Pulse Rate 57 L 59 L 59 L Pulse Rate [ Apical] Respiratory Rate Blood Pressure 134/75 134/75 134/75 O2 Sat by Pulse 99 97 97 Oximetry 09/22/18 09/22/18 09/22/18 05:40 05:51 06:01 Temperature Pulse Rate 58 L 69 62 Pulse Rate [ Apical] Respiratory Rate Blood Pressure 134/75 134/75 144/81 O2 Sat by Pulse 98 100 99 Oximetry 09/22/18 09/22/18 09/22/18 06:07 06:11 06:21 Temperature Pulse Rate 86 55 L 53 L Pulse Rate [ Apical] Respiratory Rate Blood Pressure 144/81 144/81 144/81 O2 Sat by Pulse 100 100 Oximetry 09/22/18 09/22/18 09/22/18 06:31 06:41 06:51 Temperature Pulse Rate 52 L 58 L 60 Pulse Rate [ Apical] Respiratory Rate Blood Pressure 144/81 144/81 144/81 O2 Sat by Pulse 100 100 100 Oximetry 09/22/18 09/22/18 09/22/18 07:01 07:11 07:21 Temperature Pulse Rate 64 66 62 Pulse Rate [ Apical] Respiratory Rate Blood Pressure 148/82 148/82 148/82 O2 Sat by Pulse 99 99 99 Oximetry 09/22/18 09/22/18 09/22/18 07:31 07:41 07:51 Temperature Pulse Rate 49 L 51 L 40 L Pulse Rate [ Apical] Respiratory Rate Blood Pressure 148/82 148/82 148/82 O2 Sat by Pulse 100 99 100 Oximetry 09/22/18 09/22/18 09/22/18 08:00 08:11 08:21 Temperature 97.6 F Pulse Rate 64 49 L 53 L Pulse Rate [ 75 Apical] Respiratory 16 Rate Blood Pressure 139/74 139/74 139/74 O2 Sat by Pulse 100 100 100 Oximetry 09/22/18 09/22/18 09/22/18 08:31 08:41 08:51 Temperature Pulse Rate 77 78 75 Pulse Rate [ Apical] Respiratory Rate Blood Pressure 139/74 139/74 139/74 O2 Sat by Pulse 99 99 98 Oximetry 09/22/18 09/22/18 09/22/18 09:00 09:11 09:21 Temperature Pulse Rate 77 80 78 Pulse Rate [ Apical] Respiratory Rate Blood Pressure 140/84 140/84 140/84 O2 Sat by Pulse 98 99 98 Oximetry 09/22/18 09/22/18 09/22/18 09:30 09:31 09:41 Temperature Pulse Rate 79 76 77 Pulse Rate [ Apical] Respiratory Rate Blood Pressure 140/84 140/84 140/84 O2 Sat by Pulse 99 98 Oximetry 09/22/18 09/22/18 09/22/18 09:51 10:00 10:11 Temperature Pulse Rate 68 117 H 88 Pulse Rate [ Apical] Respiratory Rate Blood Pressure 140/84 139/85 139/85 O2 Sat by Pulse 100 100 100 Oximetry 09/22/18 09/22/18 09/22/18 10:21 10:31 10:41 Temperature Pulse Rate 80 73 83 Pulse Rate [ Apical] Respiratory Rate Blood Pressure 139/85 139/85 139/85 O2 Sat by Pulse 100 99 99 Oximetry 09/22/18 09/22/18 09/22/18 10:51 11:01 11:11 Temperature Pulse Rate 57 L 64 79 Pulse Rate [ Apical] Respiratory Rate Blood Pressure 139/85 150/82 139/85 O2 Sat by Pulse 100 100 99 Oximetry 09/22/18 09/22/18 09/22/18 11:21 11:31 11:41 Temperature Pulse Rate 63 65 64 Pulse Rate [ Apical] Respiratory Rate Blood Pressure 139/85 139/85 139/85 O2 Sat by Pulse 100 100 100 Oximetry 09/22/18 09/22/18 09/22/18 11:51 12:01 12:10 Temperature Pulse Rate 81 76 62 Pulse Rate [ Apical] Respiratory Rate Blood Pressure 139/85 139/85 176/85 O2 Sat by Pulse 100 100 100 Oximetry - General Appearance General appearance: well-developed, well-nourished, appears stated age EENT: PERRL, mucous membranes moist Neck: no JVD, no thyromegaly, no carotid bruit, supple Respiratory: Present: Clear to Ascultation Cardiology: regular, normal heart rate, S1S2, no murmurs Gastrointestinal: normal, normoactive bowel sounds Integumentary: no rash, other (no edema) - Lab 09/19/18 05:29 09/20/18 10:59 Most recent lab results Calcium 9.5 mg/dL (8.4-10.2) 09/20/18 10:59 Phosphorus 4.90 mg/dL (2.5-4.5) H 09/17/18 17:34 Magnesium 1.80 mg/dL (1.7-2.3) 09/20/18 10:59 58.9 mg/dL (0.1-20.0) H 09/18/18 17:21 149 mg/dL (5-11.8) H 09/18/18 17:21 Medications & Allergies - Medications Allergies/Adverse Reactions: Allergies Lettuce Allergy (Uncoded 09/18/18 17:27) Unknown Home Medications: Home Medications Medication Instructions Recorded Confirmed Last Taken Type Emtricitab/Rilpiviri/Tenof Ala 1 each PO QAM 09/17/18 09/17/18 Unknown History [Odefsey Tablet] HYDROcodone/APAP 10-325 [Lissie 1 each PO Q6H PRN 09/17/18 09/17/18 Unknown Histo ry 10/325] Ibuprofen [Motrin] 800 mg PO BID PRN 09/17/18 09/17/18 Unknown History Lisinopril [Zestril TAB] 40 mg PO BID 09/17/18 09/17/18 Unknown History Active Medications: Generic Name Dose Route Start Last Admin Trade Name Shonda PRN Reason Stop Dose Admin Acetaminophen 650 mg 09/17/18 19:57 09/21/18 19:56 Tylenol PO 650 mg Q4H PRN Administration Pain MILD(1-3)/Fever >100.5/HORNE Albuterol 2.5 mg 09/17/18 19:57 Proventil IH Q4HRT PRN Shortness Of Breath Alprazolam 0.5 mg 09/21/18 16:19 09/22/18 08:03 Xanax PO 0.5 mg Q8H PRN Administration Anxiety Aspirin 81 mg 09/18/18 10:00 09/22/18 09:31 Baby Aspirin PO 81 mg QDAY SKY Administration Atorvastatin Calcium 40 mg 09/17/18 22:00 09/21/18 21:38 Lipitor PO 40 mg QHS SKY Administration Atropine Sulfate 1 mg 09/22/18 08:00 09/22/18 08:20 Atropine 0.1% (Cardiac) IV 1 mg ONCE PRN Administration Bradycardia Docusate Sodium 100 mg 09/17/18 22:00 09/22/18 09:31 Colace PO 100 mg BID SKY Administration Fluconazole 200 mg 09/20/18 20:00 09/22/18 09:34 Diflucan PO 200 mg QDAY SKY Administration Heparin Sodium (Porcine) 5,000 unit 09/17/18 22:00 09/22/18 09:32 Heparin SUB-Q 5,000 unit Q12HR SKY Administration Hydralazine HCl 100 mg 09/21/18 13:00 09/22/18 06:07 Apresoline PO 100 mg Q8H SKY Administration Lidocaine HCl 15 ml 09/18/18 14:00 09/22/18 08:50 Magic Mouthwash PO 15 ml TID SKY Administration Lisinopril 40 mg 09/21/18 10:00 09/22/18 09:31 Zestril PO 40 mg QDAY SKY Administration Miscellaneous Medication 1 each 09/18/18 10:00 09/22/18 09:34 Emtricitab/Rilpiviri/Tenof Ala [Odefsey Tablet] PO 1 each QAM SKY Administration Nicotine 14 mg 09/19/18 10:00 09/22/18 09:31 Habitrol TD 14 mg QDAY SKY Administration Nitroglycerin 0.4 mg 09/17/18 20:03 Nitrostat SL Q5M PRN Chest Pain Ondansetron HCl 4 mg 09/17/18 19:57 Zofran IV Q8H PRN Nausea And Vomiting Oxycodone/Acetaminophen 1 tab 09/17/18 19:57 09/22/18 11:54 Percocet 5/325 PO 1 tab Q6H PRN Administration Pain, Moderate (4-6) Pantoprazole Sodium 40 mg 09/19/18 18:00 09/22/18 09:30 Protonix IV 40 mg QDAY SKY Administration Sodium Chloride 10 ml 09/17/18 22:00 09/22/18 09:32 Sodium Chloride Flush Syringe 10 Ml IV 10 ml BID SKY Administration Sodium Chloride 10 ml 09/17/18 19:57 Sodium Chloride Flush Syringe 10 Ml IV PRN PRN LINE FLUSH Spironolactone 25 mg 09/19/18 10:00 09/22/18 09:30 Aldactone PO 25 mg QDAY SKY Administration
--- NOTE | 2018-09-22 12:35 | Progress Note ---
Assessment and Plan Will further optimize BP regimen. PPM implatation tomorrow. - Patient Problems (1) High degree atrioventricular block Current Visit: Yes Status: Acute (2) Atypical chest pain Current Visit: Yes Status: Acute (3) Dysphagia Current Visit: Yes Status: Acute (4) Acute kidney injury superimposed on CKD Current Visit: Yes Status: Acute (5) Hypertension Current Visit: Yes Status: Chronic Qualifiers: Hypertension type: essential hypertension Qualified Code(s): I10 - Essential (primary) hypertension (6) COPD (chronic obstructive pulmonary disease) Current Visit: Yes Status: Chronic (7) HIV antibody positive Current Visit: Yes Status: Chronic (8) Schizophrenia Current Visit: Yes Status: Chronic Subjective Date of service: 09/22/18 Principal diagnosis: odynophagia, atypical CP, acute on ckd, HIV, schizophrenia, AV block Interval history: No complaint. Objective Vital Signs Last Vital Signs Temp 97.6 F 09/22/18 08:00 Pulse 62 09/22/18 12:10 Resp 16 09/22/18 12:00 BP 176/85 09/22/18 12:10 Pulse Ox 100 09/22/18 12:10 - Physical Examination General: No Apparent Distress HEENT: Positive: EOMI, Normocephaly, Mucus Membranes Moist Neck: Positive: neck supple, trachea midline Cardiac: Positive: Reg Rate and Rhythm Lungs: Positive: clear to auscultation Neuro: Positive: Grossly Intact Abdomen: Positive: Soft, Active Bowel Sounds. Negative: Tender Skin: Positive: Clear. Negative: Rash Musculoskeletal: Normal Range of Motion Extremities: Present: normal. Absent: edema - Imaging and Cardiology EKG: image reviewed - Telemetry EKG Rhythm: Sinus Rhythm (with variable degrees of AV block) - EKG Sinus rhythms and dysrhythmias: sinus rhythm AV and intraventricular conduction: 2 to 1 AV block
[2018-09-22] MEDS: NORVASC PO SCH (13:01)
[2018-09-22] MEDS: TYLENOL PO PRN ×2 (14:14→14:22)
--- NOTE | 2018-09-22 14:17 | Progress Note ---
Assessment and Plan Cultures: 09/17/2018 Blood culture no growth so far 09/17/2018 GAS neg 09/17/2018 Urine culture neg A/P: 61-year-old male with COPD, coronary artery disease, HIV disease admitted with dysphagia/odynophagia and reporting weight loss: 1) HIV: well controlled, on Odefsey. Per history, viral load undetectable and good CD4 count. Follows up at [facility]. Odefsey is non formulary. 2) ?UTI: UA showed 12 WBC. No leucocytosis, no fever. Patient has no urinary symptoms. When questioned the patient, he was not instructed to provide a mid- stream sample. No abx needed. 3) Dysphagia / odynophagia and weight loss: Group A Strep rapid negative. Reports "bad reflux". Placed on fluconazole now better, GI med signed off 4) TUAN: nephrology consulted. Improving. 5) Heart block Recs: - GI med signed off - continue Odefsey - continue fluconazole 200 mg po qday total 10 days until 09/29/2018 - Pacamaker tomorrow per cards Will sign off thanks Daysi Murray MD Infectious Diseases Chief Information Security Officer [facility] [phone] O [phone] Subjective Date of service: 09/22/18 Principal diagnosis: odynophagia, atypical CP, acute on ckd, HIV, schizophrenia, AV block Interval history: Feels better, denies odynophagia/dysphagia. No fever. Objective - Exam Narrative Exam: General appearance: Alert in NAD, conversant Eyes: anicteric sclerae, moist conjunctivae; no lid-lag; PERRLA HENT: Atraumatic; oropharynx clear with moist mucous membranes and no mucosal ulcerations/no oral thrush; normal hard and soft palate. Normal external ears. Neck: Trachea midline; supple, no thyromegaly or lymphadenopathy Lungs: CTA, with normal respiratory effort and no intercostal retractions CV: RRR, no murmurs Abdomen: Soft, non-tender; no masses or hepatosplenomegaly Extremities: No peripheral edema or extremity lymphadenopathy Skin: Normal temperature, turgor and texture; no rash, ulcers or subcutaneous nodules Psych: Appropriate affect, alert and oriented to person, place and time. Neuro: alert and oriented x 3. Moving all extermities - Constitutional Vitals: Vital Signs Temp Pulse Resp BP Pulse Ox 97.6 F 53 L 15 156/78 100 09/22/18 12:00 09/22/18 13:04 09/22/18 14:14 09/22/18 13:04 09/22/18 12:10 Temperature -Last 24 Hours Temperature 97.6 F Temperature 97.5 F Temperature 97.6 F Temperature 98.3 F Temperature 98.2 F Temperature 98.5 F Temperature 98.8 F - Labs CBC & Chem 7: 09/19/18 05:29 09/20/18 10:59 Labs: Abnormal lab results 09/21/18 09/22/18 09/22/18 Range/Units 22:02 02:01 05:17 POC Glucose 158 H 128 H 128 H (70-105) 09/22/18 Range/Units 13:54 POC Glucose 139 H (70-105)
[2018-09-22] MEDS: TORADOL IV PRN ×2 (16:28→22:29)
[2018-09-23 05:04] LABS: Basophils % (Auto) 0.9 % (0.0-1.8); Eosinophils # (Auto) 0.2 K/mm3 (0.0-0.4); Eosinophils % (Auto) 4.6 % (0.0-4.3); Hematocrit 34.7 % (35.5-45.6); Hemoglobin 11.9 gm/dl (11.8-15.2); Lymphocytes % (Auto) 42.8 % (13.4-35.0); Mean Corpuscular HGB Conc 34 % (32-34); Mean Corpuscular Volume 97 fl (84-94); Monocytes # (Auto) 0.7 K/mm3 (0.0-0.8); Monocytes % (Auto) 15.3 % (0.0-7.3); Platelet Count 185 K/mm3 (140-440); Red Blood Count 3.57 M/mm3 (3.65-5.03); Red Cell Distribution Width 14.5 % (13.2-15.2)
[2018-09-23 05:12] LABS: INR 1.15 (0.87-1.13)
[2018-09-23 05:17] LABS: Calcium 8.9 mg/dL (8.4-10.2)
[2018-09-23] MEDS: TORADOL IV PRN ×2 (05:32→17:00)
[2018-09-23] MEDS: PERCOCET 5/325 PO PRN ×3 (07:57→20:05)
[2018-09-23] MEDS: XANAX PO PRN ×2 (07:57→16:59)
[2018-09-23] MEDS: MAGIC MOUTHWASH PO SCH ×3 (08:00→20:38)
[2018-09-23] MEDS ORDERED: NACL 0.9% 1,000 ML, .VANCOMYCIN VIAL 1,000 MG IR ONE (08:34)
[2018-09-23] MEDS ORDERED: NACL 0.9% 500 ML 500 ML ONE (08:51)
[2018-09-23] MEDS ORDERED: NACL 0.9% 500 ML 500 ML IV SCH (10:00)
[2018-09-23] MEDS ORDERED: MARCAINE 0.5% INFILTRATI ONE (10:00)
[2018-09-23] MEDS: HEPARIN SUB-Q SCH ×2 (10:00→22:08)
[2018-09-23] MEDS: ZESTRIL PO SCH (10:00)
[2018-09-23] MEDS ORDERED: NACL 0.9% 500 ML IR ONE (10:00)
[2018-09-23] MEDS ORDERED: XYLOCAINE 1% 20 mL ONE (10:00)
[2018-09-23] MEDS ORDERED: ANCEF/STERILE WATER 2 GM/20 ML 2 GM/20 ML SYRINGE IV ONE (10:03)
[2018-09-23] MEDS ORDERED: .VANCOMYCIN VIAL 1,000 MG in NACL 0.9% 1,000 ML IRRIGATION ONE (10:49)
[2018-09-23] MEDS: VERSED ONE ×3 (10:55→12:04)
[2018-09-23] MEDS: SUBLIMAZE ONE ×3 (10:55→12:04)
--- NOTE | 2018-09-23 10:55 | Progress Note ---
Assessment and Plan Proceed with PPM implantation today. The patient has been seen in conjunction with Dr. Garcia who agrees with the assessment and plan of care. - Patient Problems (1) High degree atrioventricular block Current Visit: Yes Status: Acute (2) Atypical chest pain Current Visit: Yes Status: Resolved (3) Dysphagia Current Visit: Yes Status: Acute (4) Acute kidney injury superimposed on CKD Current Visit: Yes Status: Acute (5) Hypertension Current Visit: Yes Status: Chronic Qualifiers: Hypertension type: essential hypertension Qualified Code(s): I10 - Essential (primary) hypertension (6) COPD (chronic obstructive pulmonary disease) Current Visit: Yes Status: Chronic (7) HIV antibody positive Current Visit: Yes Status: Chronic (8) Schizophrenia Current Visit: Yes Status: Chronic (9) NSVT Current Visit: Yes Status: Acute Subjective Date of service: 09/23/18 Principal diagnosis: odynophagia, atypical CP, acute on ckd, HIV, schizophrenia, AV block Interval history: pt resting in bed, no current complaints, for PPM implantation today. Intermittent AV block with NSVT noted on tele over the weekend. Objective Last Vital Signs Temp 97.5 F L 09/23/18 08:00 Pulse 72 09/23/18 08:00 Resp 24 09/23/18 08:00 BP 158/80 09/23/18 08:00 Pulse Ox 100 09/23/18 08:00 - Physical Examination General: No Apparent Distress HEENT: Positive: EOMI, Normocephaly, Mucus Membranes Moist Neck: Positive: neck supple, trachea midline Cardiac: Positive: Regular Rhythm, S1/S2 Lungs: Positive: Decreased Breath Sounds Neuro: Positive: Grossly Intact Abdomen: Positive: Soft, Active Bowel Sounds. Negative: Tender Skin: Positive: Clear. Negative: Rash Musculoskeletal: Normal Range of Motion Extremities: Present: normal. Absent: edema - Labs and Meds Coagulation 09/23/18 Range/Units 04:00 PT 14.4 (12.2-14.9) Sec. INR 1.15 H (0.87-1.13) CBC 09/23/18 Range/Units 04:00 WBC 4.7 (4.5-11.0) K/mm3 RBC 3.57 L (3.65-5.03) M/mm3 Hgb 11.9 (11.8-15.2) gm/dl Hct 34.7 L (35.5-45.6) % Plt Count 185 (140-440) K/mm3 Lymph # 2.0 (1.2-5.4) K/mm3 Winkler # 0.7 (0.0-0.8) K/mm3 Eos # 0.2 (0.0-0.4) K/mm3 Baso # 0.0 (0.0-0.1) K/mm3 Comprehensive Metabolic Panel 09/23/18 Range/Units 04:00 Sodium 134 L (137-145) mmol/L Potassium 3.6 (3.6-5.0) mmol/L Chloride 98.5 (98-107) mmol/L Carbon Dioxide 23 (22-30) mmol/L BUN 29 H (9-20) mg/dL Creatinine 1.6 H (0.8-1.5) mg/dL Glucose 124 H (75-100) mg/dL Calcium 8.9 (8.4-10.2) mg/dL - Imaging and Cardiology EKG: image reviewed - EKG Sinus rhythms and dysrhythmias: sinus rhythm AV and intraventricular conduction: 2 to 1 AV block
[2018-09-23] MEDS ORDERED: APRESOLINE ONE (13:54)
[2018-09-23] MEDS: DIFLUCAN PO SCH (13:54)
[2018-09-23] MEDS: BABY ASPIRIN PO SCH (13:55)
[2018-09-23] MEDS: COLACE PO SCH ×2 (13:55→22:06)
[2018-09-23] MEDS: NORVASC PO SCH (13:55)
[2018-09-23] MEDS: NON-FORMULARY (Emtricitab/Rilpiviri/Tenof Ala [Odefsey Tablet] 1 EACH) PO SCH (13:56)
[2018-09-23] MEDS: HABITROL TD SCH (13:57)
[2018-09-23] MEDS: ALDACTONE PO SCH (13:58)
[2018-09-23] MEDS: APRESOLINE PO SCH ×3 (13:59→20:10)
[2018-09-23] MEDS: SODIUM CHLORIDE FLUSH SYRINGE 10 ML IV SCH ×2 (14:02→22:10)
[2018-09-23] MEDS: PROTONIX PO SCH (14:06)
--- NOTE | 2018-09-23 15:42 | XRay Report ---
CHEST 1 VIEW INDICATION: john. COMPARISON: 09/17/2018. FINDINGS: Support devices: Pacemaker unchanged. Heart: Within normal limits. Lungs/Pleura: Prior granulomatous exposure. No acute infiltrate. Additional findings: None. IMPRESSION: No acute abnormality. Signer Name: Piotr Martinez MD Signed: 09/23/2018 3:38 PM Workstation Name: [id number]
--- NOTE | 2018-09-23 15:49 | Progress Note ---
Assessment and Plan Continue cardiac monitoring Should be able to transition from manager cardiac cath to floor tomorrow as long as there are no complications or concerns. Subjective Principal diagnosis: odynophagia, atypical CP, acute on ckd, HIV, schizophrenia, AV block Interval history: 09/23 had pacemaker doing well no resp distress alert Objective - Constitutional Vitals: Vital Signs - 12hr 09/23/18 09/23/18 09/23/18 03:51 03:58 04:00 Temperature 98.4 F Pulse Rate 67 65 Pulse Rate [ 72 From Monitor] Respiratory 19 17 Rate Blood Pressure 129/65 132/73 O2 Sat by Pulse 98 98 Oximetry 09/23/18 09/23/18 09/23/18 04:11 04:21 04:31 Temperature Pulse Rate 66 66 64 Pulse Rate [ From Monitor] Respiratory 18 21 16 Rate Blood Pressure 127/71 127/71 132/73 O2 Sat by Pulse 100 99 97 Oximetry 09/23/18 09/23/18 09/23/18 04:41 04:51 05:00 Temperature Pulse Rate 66 69 68 Pulse Rate [ From Monitor] Respiratory 18 21 17 Rate Blood Pressure 132/73 132/73 143/79 O2 Sat by Pulse 97 97 99 Oximetry 09/23/18 09/23/18 09/23/18 05:11 05:21 05:31 Temperature Pulse Rate 70 72 77 Pulse Rate [ From Monitor] Respiratory 22 10 L 14 Rate Blood Pressure 143/79 143/79 143/79 O2 Sat by Pulse 99 100 100 Oximetry 09/23/18 09/23/18 09/23/18 05:41 05:51 06:00 Temperature Pulse Rate 66 69 61 Pulse Rate [ From Monitor] Respiratory 15 16 21 Rate Blood Pressure 143/79 143/79 141/76 O2 Sat by Pulse 100 100 100 Oximetry 09/23/18 09/23/18 09/23/18 06:11 06:21 06:31 Temperature Pulse Rate 64 62 63 Pulse Rate [ From Monitor] Respiratory 20 21 21 Rate Blood Pressure 141/76 141/76 141/76 O2 Sat by Pulse 100 100 100 Oximetry 09/23/18 09/23/18 09/23/18 06:41 06:51 07:00 Temperature Pulse Rate 64 66 68 Pulse Rate [ From Monitor] Respiratory 21 17 20 Rate Blood Pressure 141/76 141/76 133/67 O2 Sat by Pulse 99 100 99 Oximetry 09/23/18 09/23/18 09/23/18 07:11 07:21 07:31 Temperature Pulse Rate 64 57 L 66 Pulse Rate [ From Monitor] Respiratory 12 20 13 Rate Blood Pressure 133/67 133/67 133/67 O2 Sat by Pulse 100 100 100 Oximetry 09/23/18 09/23/18 09/23/18 07:41 07:51 08:00 Temperature 97.5 F L Pulse Rate 69 67 62 Pulse Rate [ 72 From Monitor] Respiratory 12 17 12 Rate Blood Pressure 133/67 133/67 158/80 O2 Sat by Pulse 99 100 100 Oximetry 09/23/18 09/23/18 09/23/18 10:00 13:13 13:21 Temperature Pulse Rate 70 75 Pulse Rate [ From Monitor] Respiratory 11 L Rate Blood Pressure 117/78 158/80 125/84 O2 Sat by Pulse 81 L 99 Oximetry 09/23/18 09/23/18 09/23/18 13:31 13:41 13:51 Temperature Pulse Rate 86 68 68 Pulse Rate [ From Monitor] Respiratory 12 15 11 L Rate Blood Pressure 125/84 125/84 125/84 O2 Sat by Pulse 99 99 99 Oximetry 09/23/18 09/23/18 09/23/18 13:55 13:58 14:01 Temperature Pulse Rate 65 60 65 Pulse Rate [ From Monitor] Respiratory 16 Rate Blood Pressure 125/84 125/84 117/78 O2 Sat by Pulse 99 Oximetry 09/23/18 09/23/18 14:11 14:21 Temperature Pulse Rate 64 64 Pulse Rate [ From Monitor] Respiratory 16 14 Rate Blood Pressure 117/78 117/78 O2 Sat by Pulse 100 100 Oximetry - Respiratory Respiratory: bilateral: diminished - Labs CBC & Chem 7: 09/23/18 04:00 09/23/18 04:00 Labs: Abnormal lab results 09/22/18 09/22/18 09/23/18 Range/Units 18:56 22:13 02:21 RBC (3.65-5.03) M/mm3 Hct (35.5-45.6) % MCV (84-94) fl MCH (28-32) pg Lymph % (Auto) (13.4-35.0) % [place] % (Auto) (0.0-7.3) % Eos % (Auto) (0.0-4.3) % Seg Neutrophils % (40.0-70.0) % Seg Neutrophils # (1.8-7.7) K/mm3 INR (0.87-1.13) Sodium (137-145) mmol/L BUN (9-20) mg/dL Creatinine (0.8-1.5) mg/dL Glucose (75-100) mg/dL POC Glucose 122 H 146 H 128 H (70-105) 09/23/18 09/23/18 09/23/18 Range/Units 04:00 04:00 04:00 RBC 3.57 L (3.65-5.03) M/mm3 Hct 34.7 L (35.5-45.6) % MCV 97 H (84-94) fl MCH 33 H (28-32) pg Lymph % (Auto) 42.8 H (13.4-35.0) % [place] % (Auto) 15.3 H (0.0-7.3) % Eos % (Auto) 4.6 H (0.0-4.3) % Seg Neutrophils % 36.4 L (40.0-70.0) % Seg Neutrophils # 1.7 L (1.8-7.7) K/mm3 INR 1.15 H (0.87-1.13) Sodium 134 L (137-145) mmol/L BUN 29 H (9-20) mg/dL Creatinine 1.6 H (0.8-1.5) mg/dL Glucose 124 H (75-100) mg/dL POC Glucose (70-105) 09/23/18 09/23/18 Range/Units 05:27 14:26 RBC (3.65-5.03) M/mm3 Hct (35.5-45.6) % MCV (84-94) fl MCH (28-32) pg Lymph % (Auto) (13.4-35.0) % [place] % (Auto) (0.0-7.3) % Eos % (Auto) (0.0-4.3) % Seg Neutrophils % (40.0-70.0) % Seg Neutrophils # (1.8-7.7) K/mm3 INR (0.87-1.13) Sodium (137-145) mmol/L BUN (9-20) mg/dL Creatinine (0.8-1.5) mg/dL Glucose (75-100) mg/dL POC Glucose 116 H 144 H (70-105) Medications & Allergies - Medications Allergies/Adverse Reactions: Allergies Lettuce Allergy (Uncoded 09/18/18 17:27) Unknown Home Medications: Home Medications Medication Instructions Recorded Confirmed Last Taken Type Emtricitab/Rilpiviri/Tenof Ala 1 each PO QAM 09/17/18 09/17/18 Unknown History [Odefsey Tablet] HYDROcodone/APAP 10-325 [[place] 1 each PO Q6H PRN 09/17/18 09/17/18 Unknown History 10/325] Ibuprofen [Motrin] 800 mg PO BID PRN 09/17/18 09/17/18 Unknown History Lisinopril [Zestril TAB] 40 mg PO BID 09/17/18 09/17/18 Unknown History Active Medications: Generic Name Dose Route Start Last Admin Trade Name Freq PRN Reason Stop Dose Admin Acetaminophen 650 mg 09/17/18 19:57 09/22/18 14:22 Tylenol PO 650 mg Q4H PRN Administration Pain MILD(1-3)/Fever >100.5/HORNE Albuterol 2.5 mg 09/17/18 19:57 Proventil IH Q4HRT PRN Shortness Of Breath Alprazolam 0.5 mg 09/21/18 16:19 09/23/18 07:57 Xanax PO 0.5 mg Q8H PRN Administration Anxiety Amlodipine Besylate 5 mg 09/22/18 13:00 09/23/18 13:55 Norvasc PO 5 mg QDAY SKY Administration Aspirin 81 mg 09/18/18 10:00 09/23/18 13:55 Baby Aspirin PO 81 mg QDAY SKY Administration Atorvastatin Calcium 40 mg 09/17/18 22:00 09/22/18 21:02 Lipitor PO 40 mg QHS SKY Administration Atropine Sulfate 1 mg 09/22/18 08:00 09/22/18 08:20 Atropine 0.1% (Cardiac) IV 1 mg ONCE PRN Administration Bradycardia Docusate Sodium 100 mg 09/17/18 22:00 09/23/18 13:55 Colace PO 100 mg BID SKY Administration Fluconazole 200 mg 09/20/18 20:00 09/23/18 13:54 Diflucan PO 09/29/18 10:01 200 mg QDAY SKY Administration Heparin Sodium (Porcine) 5,000 unit 09/17/18 22:00 09/23/18 10:00 Heparin SUB-Q Not Given Q12HR SKY Hydralazine HCl 100 mg 09/23/18 14:00 09/23/18 14:01 Apresoline PO Not Given TID SKY Sodium Chloride 500 mls @ 50 mls/hr 09/23/18 10:00 09/23/18 14:08 Nacl 0.9% 500 Ml IV 50 mls/hr DIRECT SKY Administration Ketorolac Tromethamine 15 mg 09/22/18 14:30 09/23/18 05:32 Toradol IV 09/27/18 14:29 15 mg Q6H PRN Administration Pain, Mild (1-3) Lidocaine HCl 15 ml 09/18/18 14:00 09/23/18 13:59 Magic Mouthwash PO 15 ml TID SKY Administration Lisinopril 40 mg 09/21/18 10:00 09/23/18 10:00 Zestril PO Not Given QDAY SKY Miscellaneous Medication 1 each 09/18/18 10:00 09/23/18 13:56 Emtricitab/Rilpiviri/Tenof Ala [Odefsey Tablet] PO 1 each QAM SKY Administration Nicotine 14 mg 09/19/18 10:00 09/23/18 13:57 Habitrol TD 14 mg QDAY SKY Administration Nitroglycerin 0.4 mg 09/17/18 20:03 Nitrostat SL Q5M PRN Chest Pain Ondansetron HCl 4 mg 09/17/18 19:57 Zofran IV Q8H PRN Nausea And Vomiting Oxycodone/Acetaminophen 1 tab 09/17/18 19:57 09/23/18 14:03 Percocet 5/325 PO 1 tab Q6H PRN Administration Pain, Moderate (4-6) Pantoprazole Sodium 40 mg 09/23/18 10:00 09/23/18 14:06 Protonix PO 40 mg DAILY SKY Administration Sodium Chloride 10 ml 09/17/18 22:00 09/23/18 14:02 Sodium Chloride Flush Syringe 10 Ml IV 10 ml BID SKY Administration Sodium Chloride 10 ml 09/17/18 19:57 Sodium Chloride Flush Syringe 10 Ml IV PRN PRN LINE FLUSH Spironolactone 25 mg 09/19/18 10:00 09/23/18 13:58 Aldactone PO 25 mg QDAY SKY Administration
--- NOTE | 2018-09-23 17:38 | Progress Note ---
Assessment and Plan Assessment and plan: 61-year-old -Maced[place] male with history of COPD, NM, retention, HIV who presents [facility] with complaints of intermittent left-sided chest pain with radiation to left arm and the discomfort for the past 4 days. CXR showed hyperexpanded lungs chest of COPD. No acute cardiopulmonary abnormalities noted. Neck x-ray was unrevealing for acute abnormalities. He was found to be mildly hyponatremic with Na of 133. Elevated urine WBC at 12.0. Patient was initially scheduled for EGD, however patient had asymptomatic intermittent high degree heart block on the monitor,and EGD cancelled,Judge adv transfer to ICU, s/p placement of PPM . --High degree heart block[Intermittent]; patient is asymptomatic s/p PPM placement today --Dysphagia; odynophagia, supportive care, Magic mouthwash swish and swallow symptoms slightly improved Diet as tolerated, EGD cancelled due to heart block. GI w/u as out pt , continue diflucan --Hyponatremia/ Hypokalemia; resolved --Acute on chronic renal failure; vasomotor nephropathy Closely monitor renal function, avoid nephrotoxins, Creatinine levels significantly improved, back to baseline --HIV; continue current management per ID Patient follows with [facility], --Severe malnutrition; nutrition supplements and supportive care Nutrition consult as needed --DVT prophylaxis; Lovenox Monitor closely and adjust management as needed Monitor in ICU per cardiology Critical care time 32 minutes The high probability of a clinically significant, sudden or life threatening deterioration of the [CVS,ID,Metabolic ,renal, respiratory] system(s) required my full and direct attention, intervention and personal management. The aggregate critical care time was [32] minutes. This time is in addition to time spent performing ,reported procedures but includes the following: [x] Data Review and interpretation [x] Patient assessment and monitoring of vital signs [x] Documentation [x] Medication orders and management Plan of care is reviewed with the patient and his nurse History Interval history: Patient feels better had permanent pacemaker placement No new complaints Vital signs noted Hospitalist Physical - Constitutional Vitals: Temp Pulse Resp BP Pulse Ox 97.5 F L 66 19 136/68 100 09/23/18 16:00 09/23/18 17:00 09/23/18 17:00 09/23/18 17:00 09/23/18 17:00 General appearance: Present: no acute distress, well-nourished - EENT Eyes: Present: PERRL, EOM intact - Neck Neck: Present: supple, normal ROM - Respiratory Respiratory effort: normal Respiratory: bilateral: diminished, negative: rales, rhonchi, wheezing - Cardiovascular Rhythm: regular Heart Sounds: Present: S1 & S2 - Extremities Extremities: no ischemia, No edema - Abdominal General gastrointestinal: soft, non-tender, non-distended, normal bowel sounds - Integumentary Integumentary: Present: clear, warm - Psychiatric Psychiatric: appropriate mood/affect, cooperative - Neurologic Neurologic: CNII-XII intact, moves all extremities Results - Labs CBC & Chem 7: 09/23/18 04:00 09/23/18 04:00 Labs: Laboratory Last Values WBC 4.7 K/mm3 (4.5-11.0) 09/23/18 04:00 RBC 3.57 M/mm3 (3.65-5.03) L 09/23/18 04:00 Hgb 11.9 gm/dl (11.8-15.2) 09/23/18 04:00 Hct 34.7 % (35.5-45.6) L 09/23/18 04:00 MCV 97 fl (84-94) H 09/23/18 04:00 MCH 33 pg (28-32) H 09/23/18 04:00 MCHC 34 % (32-34) 09/23/18 04:00 RDW 14.5 % (13.2-15.2) 09/23/18 04:00 Plt Count 185 K/mm3 (140-440) 09/23/18 04:00 Lymph % (Auto) 42.8 % (13.4-35.0) H 09/23/18 04:00 [place] % (Auto) 15.3 % (0.0-7.3) H 09/23/18 04:00 Eos % (Auto) 4.6 % (0.0-4.3) H 09/23/18 04:00 Baso % (Auto) 0.9 % (0.0-1.8) 09/23/18 04:00 Lymph # 2.0 K/mm3 (1.2-5.4) 09/23/18 04:00 [place] # 0.7 K/mm3 (0.0-0.8) 09/23/18 04:00 Eos # 0.2 K/mm3 (0.0-0.4) 09/23/18 04:00 Baso # 0.0 K/mm3 (0.0-0.1) 09/23/18 04:00 Seg Neutrophils % 36.4 % (40.0-70.0) L 09/23/18 04:00 Seg Neutrophils # 1.7 K/mm3 (1.8-7.7) L 09/23/18 04:00 PT 14.4 Sec. (12.2-14.9) 09/23/18 04:00 INR 1.15 (0.87-1.13) H 09/23/18 04:00 Sodium 134 mmol/L (137-145) L 09/23/18 04:00 Potassium 3.6 mmol/L (3.6-5.0) 09/23/18 04:00 Chloride 98.5 mmol/L (98-107) 09/23/18 04:00 Carbon Dioxide 23 mmol/L (22-30) 09/23/18 04:00 16 mmol/L 09/23/18 04:00 BUN 29 mg/dL (9-20) H 09/23/18 04:00 1.6 mg/dL (0.8-1.5) H 09/23/18 04:00 Estimated GFR 53 ml/min 09/23/18 04:00 18 % 09/23/18 04:00 Glucose 124 mg/dL (75-100) H 09/23/18 04:00 POC Glucose 144 (70-105) H 09/23/18 14:26 8.1 mg/dL (3.5-7.6) H 09/18/18 05:04 Calcium 8.9 mg/dL (8.4-10.2) 09/23/18 04:00 Phosphorus 4.90 mg/dL (2.5-4.5) H 09/17/18 17:34 Magnesium 1.80 mg/dL (1.7-2.3) 09/20/18 10:59 0.20 mg/dL (0.1-1.2) 09/19/18 05:29 AST 11 units/L (5-40) 09/19/18 05:29 ALT 6 units/L (7-56) L 09/19/18 05:29 105 units/L (35-129) 09/19/18 05:29 < 0.010 ng/mL (0.00-0.029) 09/18/18 00:44 NT-Pro-B Natriuret Pep 636.1 pg/mL (0-900) 09/17/18 17:34 6.8 g/dL (6.3-8.2) 09/19/18 05:29 3.2 g/dL (3.9-5) L 09/19/18 05:29 0.9 % 09/19/18 05:29 Triglycerides 255 mg/dL (2-149) H 09/18/18 05:48 Cholesterol 146 mg/dL (50-199) 09/18/18 05:48 76 mg/dL (50-130) 09/18/18 05:48 18 mg/dL (40-59) L 09/18/18 05:48 8.11 % 09/18/18 05:48 TSH 0.920 mlU/mL (0.270-4.200) 09/20/18 05:44 Free T4 0.81 ng/dL (0.76-1.46) 09/20/18 05:44 Yellow (Yellow) 09/18/18 17:21 Clear (Clear) 09/18/18 17:21 6.0 (5.0-7.0) 09/18/18 17:21 Ur Specific [place] 1.012 (1.003-1.030) 09/18/18 17:21 100 mg/dl mg/dL (Negative) 09/18/18 17:21 Neg mg/dL (Negative) 09/18/18 17:21 Neg mg/dL (Negative) 09/18/18 17:21 Neg (Negative) 09/18/18 17:21 Neg (Negative) 09/18/18 17:21 Neg (Negative) 09/18/18 17:21 < 2.0 mg/dL (<2.0) 09/18/18 17:21 Ur Leukocyte Esterase Neg (Negative) 09/18/18 17:21 1.0 /HPF (0.0-6.0) 09/18/18 17:21 1.0 /HPF (0.0-6.0) 09/18/18 17:21 58.9 mg/dL (0.1-20.0) H 09/18/18 17:21 149 mg/dL (5-11.8) H 09/18/18 17:21 Group A Strep Rapid Negative (Negative) 09/17/18 Unknown Blood Type O POSITIVE 09/23/18 08:54 Antibody Screen Negative 09/23/18 08:54 Active Medications - Current Medications Current Medications: Generic Name Dose Route Start Last Admin Trade Name Freq PRN Reason Stop Dose Admin Acetaminophen 650 mg 09/17/18 19:57 09/22/18 14:22 Tylenol PO 650 mg Q4H PRN Administration Pain MILD(1-3)/Fever >100.5/HORNE Albuterol 2.5 mg 09/17/18 19:57 Proventil IH Q4HRT PRN Shortness Of Breath Alprazolam 0.5 mg 09/21/18 16:19 09/23/18 16:59 Xanax PO 0.5 mg Q8H PRN Administration Anxiety Amlodipine Besylate 5 mg 09/22/18 13:00 09/23/18 13:55 Norvasc PO 5 mg QDAY SKY Administration Aspirin 81 mg 09/18/18 10:00 09/23/18 13:55 Baby Aspirin PO 81 mg QDAY SKY Administration Atorvastatin Calcium 40 mg 09/17/18 22:00 09/22/18 21:02 Lipitor PO 40 mg QHS SKY Administration Atropine Sulfate 1 mg 09/22/18 08:00 09/22/18 08:20 Atropine 0.1% (Cardiac) IV 1 mg ONCE PRN Administration Bradycardia Docusate Sodium 100 mg 09/17/18 22:00 09/23/18 13:55 Colace PO 100 mg BID SKY Administration Fluconazole 200 mg 09/20/18 20:00 09/23/18 13:54 Diflucan PO 09/29/18 10:01 200 mg QDAY SKY Administration Heparin Sodium (Porcine) 5,000 unit 09/17/18 22:00 09/23/18 10:00 Heparin SUB-Q Not Given Q12HR SKY Hydralazine HCl 100 mg 09/23/18 14:00 09/23/18 14:01 Apresoline PO Not Given TID [facility] Sodium Chloride 500 mls @ 50 mls/hr 09/23/18 10:00 09/23/18 14:08 Nacl 0.9% 500 Ml IV 50 mls/hr DIRECT SKY Administration Ketorolac Tromethamine 15 mg 09/22/18 14:30 09/23/18 17:00 Toradol IV 09/27/18 14:29 15 mg Q6H PRN Administration Pain, Mild (1-3) Lidocaine HCl 15 ml 09/18/18 14:00 09/23/18 13:59 Magic Mouthwash PO 15 ml TID SKY Administration Lisinopril 40 mg 09/21/18 10:00 09/23/18 10:00 Zestril PO Not Given QDAY SKY Miscellaneous Medication 1 each 09/18/18 10:00 09/23/18 13:56 Emtricitab/Rilpiviri/Tenof Ala [Odefsey Tablet] PO 1 each QAM SKY Administration Nicotine 14 mg 09/19/18 10:00 09/23/18 13:57 Habitrol TD 14 mg QDAY SKY Administration Nitroglycerin 0.4 mg 09/17/18 20:03 Nitrostat SL Q5M PRN Chest Pain Ondansetron HCl 4 mg 09/17/18 19:57 Zofran IV Q8H PRN Nausea And Vomiting Oxycodone/Acetaminophen 1 tab 09/17/18 19:57 09/23/18 14:03 Percocet 5/325 PO 1 tab Q6H PRN Administration Pain, Moderate (4-6) Pantoprazole Sodium 40 mg 09/23/18 10:00 09/23/18 14:06 Protonix PO 40 mg DAILY SKY Administration Sodium Chloride 10 ml 09/17/18 22:00 09/23/18 14:02 Sodium Chloride Flush Syringe 10 Ml IV 10 ml BID SKY Administration Sodium Chloride 10 ml 09/17/18 19:57 Sodium Chloride Flush Syringe 10 Ml IV PRN PRN LINE FLUSH Spironolactone 25 mg 09/19/18 10:00 09/23/18 13:58 Aldactone PO 25 mg QDAY SKY Administration Nutrition/Malnutrition Assess - Dietary Evaluation Nutrition/Malnutrition Findings: Nutrition Notes Start: 09/18/18 17:16 Freq: Status: Active Protocol: Document 09/20/18 19:14 RM (Rec: 09/20/18 19:19 RM [id number]) Nutrition Notes Initial or Follow up Reassessment Current Diagnosis COPD Other Pertinent Diagnosis UTI, HIV, Schizophrenia, Dysphagia,CP Current Diet Cardiac Labs/Tests Reviewed Pertinent Medications Reviewed Height 6 ft Weight 56.9 kg [place] Body Weight (kg) 80.90 BMI 16.9 Subjective/Other Information Pt moved to ICU. Pt stated that he eats all of his meals and drinks the Ensure Enlive. Pt requested softer diet d/t throat pain and some difficulty swallowing. Percent of energy/protein needs met: 100%/100% Burn Absent Trauma Absent #1 Nutrition Diagnosis Malnutrition Diagnosis Progress(for reassessment Continues documentation) Is patient on ventilator? No Is Patient Ambulatory and/or Out of Bed Yes REE-([facility]-ambulatory/OOB) [ 1822.600 [id number]] Kcal/Kg value to use for calculation 41 Approximate Energy Requirements Using 2333 kcal/Kg Calculation Used for Recommendations Kcal/kg Additional Notes Protein Needs: 68-114g (1.2-2) Fluid Needs: 1 ml/kcal Nutrition Intervention Change Diet Order: Cardiac, Mech soft w/ground meat Add Supplement/Snack (indicate name/kcal Ensure Enlive [place] TID /protein ) Provides kCal: 1,050 Provides Protein (gm) 60 Goal #1 Meet at least 75% of calorie and protein needs via PO and ONS intakes Goal #2 Wt gain/mainetenance Anticipated Discharge Needs: Cardiac diet Follow-Up By: 09/25/18 Additional Comments Follow for PO and ONS intakes
--- NOTE | 2018-09-23 18:30 | Progress Note ---
Assessment and Plan - Patient Problems (1) Acute kidney injury superimposed on CKD Current Visit: Yes Status: Acute Plan to address problem: Acute kidney injury superimposed on chronic kidney disease Baseline creatinine in September 2017 was 1.6 mg/DL Creatinine appears to be at his baseline Recent acute kidney injury in a certain of bradycardia high degree AV block Avoid nephrotoxic medications Strict input and output Renal function is back to baseline Nephrology will sign off (2) Hypertension Current Visit: Yes Status: Chronic Qualifiers: Hypertension type: essential hypertension Qualified Code(s): I10 - Essential (primary) hypertension Plan to address problem: HTN: controlled continue current medications. (3) High degree atrioventricular block Current Visit: Yes Status: Acute Plan to address problem: High degree AV block: Status post pacemaker placement cardiology following (4) Anemia Current Visit: Yes Status: Acute Plan to address problem: Mild anemia hemoglobin 11.9 g per DL is a vasomotor chronic inflammation Monitor CBC We will sign off Please call us back if there are any questions. Subjective Principal diagnosis: odynophagia, atypical CP, acute on ckd, HIV, schizophrenia, AV block Interval history: 62-year-old gentleman with medical history significant for chronic kidney disease admitted with high degree AV block status post pacemaker placement today Good urine output Patient denies any shortness of breath orthopnea or PND Objective - Vital Signs Vital signs: Vital Signs - 12hr 09/23/18 09/23/18 09/23/18 06:31 06:41 06:51 Temperature Pulse Rate 63 64 66 Pulse Rate [ From Monitor] Respiratory 21 21 17 Rate Blood Pressure 141/76 141/76 141/76 O2 Sat by Pulse 100 99 100 Oximetry 09/23/18 09/23/18 09/23/18 07:00 07:11 07:21 Temperature Pulse Rate 68 64 57 L Pulse Rate [ From Monitor] Respiratory 20 12 20 Rate Blood Pressure 133/67 133/67 133/67 O2 Sat by Pulse 99 100 100 Oximetry 09/23/18 09/23/18 09/23/18 07:31 07:41 07:51 Temperature Pulse Rate 66 69 67 Pulse Rate [ From Monitor] Respiratory 13 12 17 Rate Blood Pressure 133/67 133/67 133/67 O2 Sat by Pulse 100 99 100 Oximetry 09/23/18 09/23/18 09/23/18 08:00 10:00 13:13 Temperature 97.5 F L Pulse Rate 62 70 Pulse Rate [ 72 From Monitor] Respiratory 12 Rate Blood Pressure 158/80 117/78 158/80 O2 Sat by Pulse 100 81 L Oximetry 09/23/18 09/23/18 09/23/18 13:21 13:31 13:41 Temperature Pulse Rate 75 86 68 Pulse Rate [ From Monitor] Respiratory 11 L 12 15 Rate Blood Pressure 125/84 125/84 125/84 O2 Sat by Pulse 99 99 99 Oximetry 09/23/18 09/23/18 09/23/18 13:51 13:55 13:58 Temperature Pulse Rate 68 65 60 Pulse Rate [ From Monitor] Respiratory 11 L Rate Blood Pressure 125/84 125/84 125/84 O2 Sat by Pulse 99 Oximetry 09/23/18 09/23/18 09/23/18 14:01 14:11 14:21 Temperature Pulse Rate 65 64 64 Pulse Rate [ From Monitor] Respiratory 16 16 14 Rate Blood Pressure 117/78 117/78 117/78 O2 Sat by Pulse 99 100 100 Oximetry 09/23/18 09/23/18 09/23/18 14:31 14:41 14:51 Temperature Pulse Rate 65 70 63 Pulse Rate [ From Monitor] Respiratory 13 15 16 Rate Blood Pressure 117/78 117/78 117/78 O2 Sat by Pulse 100 99 100 Oximetry 09/23/18 09/23/18 09/23/18 15:01 15:11 15:21 Temperature Pulse Rate 77 74 65 Pulse Rate [ From Monitor] Respiratory 16 16 16 Rate Blood Pressure 117/78 117/78 117/78 O2 Sat by Pulse 100 100 100 Oximetry 09/23/18 09/23/18 09/23/18 15:31 15:41 15:51 Temperature Pulse Rate 61 78 63 Pulse Rate [ From Monitor] Respiratory 14 17 14 Rate Blood Pressure 117/78 117/78 117/78 O2 Sat by Pulse 99 100 99 Oximetry 09/23/18 09/23/18 09/23/18 16:00 16:01 16:11 Temperature 97.5 F L Pulse Rate 62 72 Pulse Rate [ 72 From Monitor] Respiratory 24 12 14 Rate Blood Pressure 117/78 117/78 O2 Sat by Pulse 100 99 100 Oximetry 09/23/18 09/23/18 09/23/18 16:21 16:31 16:41 Temperature Pulse Rate 69 64 61 Pulse Rate [ From Monitor] Respiratory 17 18 16 Rate Blood Pressure 117/78 117/78 117/78 O2 Sat by Pulse 99 100 100 Oximetry 09/23/18 09/23/18 09/23/18 16:51 17:00 17:11 Temperature Pulse Rate 75 66 75 Pulse Rate [ From Monitor] Respiratory 11 L 19 14 Rate Blood Pressure 117/78 136/68 136/68 O2 Sat by Pulse 100 100 100 Oximetry 09/23/18 09/23/18 09/23/18 17:21 17:31 17:41 Temperature Pulse Rate 60 60 62 Pulse Rate [ From Monitor] Respiratory 18 15 17 Rate Blood Pressure 136/68 136/68 136/68 O2 Sat by Pulse 100 100 100 Oximetry 09/23/18 09/23/18 09/23/18 17:51 18:00 18:11 Temperature Pulse Rate 62 68 70 Pulse Rate [ From Monitor] Respiratory 17 22 24 Rate Blood Pressure 136/68 76/49 76/49 O2 Sat by Pulse 99 100 99 Oximetry 09/23/18 18:21 Temperature Pulse Rate 73 Pulse Rate [ From Monitor] Respiratory 15 Rate Blood Pressure 143/72 O2 Sat by Pulse 99 Oximetry - General Appearance General appearance: well-developed, well-nourished EENT: ATNC, PERRL, mucous membranes moist Neck: no JVD Respiratory: Present: Clear to Ascultation Cardiology: regular, S1S2 Gastrointestinal: normal, normoactive bowel sounds Integumentary: no rash Neurologic: no focal deficit, CN 3-12 intact Psychiatric: mood/affect appropriate - Lab 09/23/18 04:00 09/23/18 04:00 Most recent lab results Calcium 8.9 mg/dL (8.4-10.2) 09/23/18 04:00 Phosphorus 4.90 mg/dL (2.5-4.5) H 09/17/18 17:34 Magnesium 1.80 mg/dL (1.7-2.3) 09/20/18 10:59 58.9 mg/dL (0.1-20.0) H 09/18/18 17:21 149 mg/dL (5-11.8) H 09/18/18 17:21 Medications & Allergies - Medications Allergies/Adverse Reactions: Allergies Lettuce Allergy (Uncoded 09/18/18 17:27) Unknown Home Medications: Home Medications Medication Instructions Recorded Confirmed Last Taken Type Emtricitab/Rilpiviri/Tenof Ala 1 each PO QAM 09/17/18 09/17/18 Unknown History [Odefsey Tablet] HYDROcodone/APAP 10-325 [[place] 1 each PO Q6H PRN 09/17/18 09/17/18 Unknown History 10/325] Ibuprofen [Motrin] 800 mg PO BID PRN 09/17/18 09/17/18 Unknown History Lisinopril [Zestril TAB] 40 mg PO BID 09/17/18 09/17/18 Unknown History Active Medications: Generic Name Dose Route Start Last Admin Trade Name Freq PRN Reason Stop Dose Admin Acetaminophen 650 mg 09/17/18 19:57 09/22/18 14:22 Tylenol PO 650 mg Q4H PRN Administration Pain MILD(1-3)/Fever >100.5/HORNE Albuterol 2.5 mg 09/17/18 19:57 Proventil IH Q4HRT PRN Shortness Of Breath Alprazolam 0.5 mg 09/21/18 16:19 09/23/18 16:59 Xanax PO 0.5 mg Q8H PRN Administration Anxiety Amlodipine Besylate 5 mg 09/22/18 13:00 09/23/18 13:55 Norvasc PO 5 mg QDAY SKY Administration Aspirin 81 mg 09/18/18 10:00 09/23/18 13:55 Baby Aspirin PO 81 mg QDAY SKY Administration Atorvastatin Calcium 40 mg 09/17/18 22:00 09/22/18 21:02 Lipitor PO 40 mg QHS SKY Administration Atropine Sulfate 1 mg 09/22/18 08:00 09/22/18 08:20 Atropine 0.1% (Cardiac) IV 1 mg ONCE PRN Administration Bradycardia Docusate Sodium 100 mg 09/17/18 22:00 09/23/18 13:55 Colace PO 100 mg BID SKY Administration Fluconazole 200 mg 09/20/18 20:00 09/23/18 13:54 Diflucan PO 09/29/18 10:01 200 mg QDAY SKY Administration Heparin Sodium (Porcine) 5,000 unit 09/17/18 22:00 09/23/18 10:00 Heparin SUB-Q Not Given Q12HR SKY Hydralazine HCl 100 mg 09/23/18 14:00 09/23/18 14:01 Apresoline PO Not Given TID SKY Sodium Chloride 500 mls @ 50 mls/hr 09/23/18 10:00 09/23/18 14:08 Nacl 0.9% 500 Ml IV 50 mls/hr DIRECT SKY Administration Ketorolac Tromethamine 15 mg 09/22/18 14:30 09/23/18 17:00 Toradol IV 09/27/18 14:29 15 mg Q6H PRN Administration Pain, Mild (1-3) Lidocaine HCl 15 ml 09/18/18 14:00 09/23/18 13:59 Magic Mouthwash PO 15 ml TID SKY Administration Lisinopril 40 mg 09/21/18 10:00 09/23/18 10:00 Zestril PO Not Given QDAY [facility] Miscellaneous Medication 1 each 09/18/18 10:00 09/23/18 13:56 Emtricitab/Rilpiviri/Tenof Ala [Odefsey Tablet] PO 1 each QAM SKY Administration Nicotine 14 mg 09/19/18 10:00 09/23/18 13:57 Habitrol TD 14 mg QDAY SKY Administration Nitroglycerin 0.4 mg 09/17/18 20:03 Nitrostat SL Q5M PRN Chest Pain Ondansetron HCl 4 mg 09/17/18 19:57 Zofran IV Q8H PRN Nausea And Vomiting Oxycodone/Acetaminophen 1 tab 09/17/18 19:57 09/23/18 14:03 Percocet 5/325 PO 1 tab Q6H PRN Administration Pain, Moderate (4-6) Pantoprazole Sodium 40 mg 09/23/18 10:00 09/23/18 14:06 Protonix PO 40 mg DAILY SKY Administration Sodium Chloride 10 ml 09/17/18 22:00 09/23/18 14:02 Sodium Chloride Flush Syringe 10 Ml IV 10 ml BID SKY Administration Sodium Chloride 10 ml 09/17/18 19:57 Sodium Chloride Flush Syringe 10 Ml IV PRN PRN LINE FLUSH Spironolactone 25 mg 09/19/18 10:00 09/23/18 13:58 Aldactone PO 25 mg QDAY SKY Administration
[2018-09-23] MEDS: TYLENOL PO PRN (22:06)
[2018-09-24] MEDS: XANAX PO PRN ×2 (01:09→10:50)
[2018-09-24] MEDS: TORADOL IV PRN ×2 (01:10→10:49)
[2018-09-24] MEDS: PERCOCET 5/325 PO PRN ×2 (04:07→09:29)
[2018-09-24] MEDS: MAGIC MOUTHWASH PO SCH (08:39)
[2018-09-24] MEDS: APRESOLINE PO SCH (08:40)
[2018-09-24] MEDS: TYLENOL PO PRN ×2 (08:41→13:56)
--- NOTE | 2018-09-24 09:10 | Progress Note ---
Assessment and Plan Assessment and plan: 61-year-old -[place] male with history of COPD, CT, retention, HIV who presents [facility] with complaints of intermittent left-sided chest pain with radiation to left arm and the discomfort for the past 4 days. CXR showed hyperexpanded lungs chest of COPD. No acute cardiopulmonary abnormalities noted. Neck x-ray was unrevealing for acute abnormalities. He was found to be mildly hyponatremic with Na of 133. Elevated urine WBC at 12.0. Patient was initially scheduled for EGD, however patient had asymptomatic intermittent high degree heart block on the monitor,and EGD cancelled,Cement Cutter adv transfer to ICU, s/p placement of PPM . --High degree heart block[Intermittent]; s/p PPM placement,stable --Dysphagia; odynophagia, improved Magic mouthwash swish and swallow Diet as tolerated, EGD cancelled due to heart block. GI w/u as out pt , continue diflucan --Hyponatremia/ Hypokalemia; resolved --Acute on chronic renal failure; vasomotor nephropathy Closely monitor renal function, avoid nephrotoxins, Creatinine levels significantly improved, back to baseline --HIV; continue current management per ID Patient follows with [facility], --Severe malnutrition; nutrition supplements and supportive care Nutrition consult as needed --DVT prophylaxis; Lovenox Monitor closely and adjust management as needed Monitor in ICU per cardiology Critical care time 32 minutes The high probability of a clinically significant, sudden or life threatening deterioration of the [CVS,ID,Metabolic ,renal, respiratory] system(s) required my full and direct attention, intervention and personal management. The aggregate critical care time was [32] minutes. This time is in addition to time spent performing ,reported procedures but includes the following: [x] Data Review and interpretation [x] Patient assessment and monitoring of vital signs [x] Documentation [x] Medication orders and management Plan of care is reviewed with the patient and his nurse Hospitalist Physical - Constitutional Vitals: Temp Pulse Resp BP Pulse Ox 97.8 F 74 13 136/80 99 09/24/18 08:00 09/24/18 08:51 09/24/18 08:51 09/24/18 08:51 09/24/18 08:51 General appearance: Present: no acute distress, well-nourished Results - Labs CBC & Chem 7: 09/23/18 04:00 09/23/18 04:00 Labs: Laboratory Last Values WBC 4.7 K/mm3 (4.5-11.0) 09/23/18 04:00 RBC 3.57 M/mm3 (3.65-5.03) L 09/23/18 04:00 Hgb 11.9 gm/dl (11.8-15.2) 09/23/18 04:00 Hct 34.7 % (35.5-45.6) L 09/23/18 04:00 MCV 97 fl (84-94) H 09/23/18 04:00 MCH 33 pg (28-32) H 09/23/18 04:00 MCHC 34 % (32-34) 09/23/18 04:00 RDW 14.5 % (13.2-15.2) 09/23/18 04:00 Plt Count 185 K/mm3 (140-440) 09/23/18 04:00 Lymph % (Auto) 42.8 % (13.4-35.0) H 09/23/18 04:00 Phillips % (Auto) 15.3 % (0.0-7.3) H 09/23/18 04:00 Eos % (Auto) 4.6 % (0.0-4.3) H 09/23/18 04:00 Baso % (Auto) 0.9 % (0.0-1.8) 09/23/18 04:00 Lymph # 2.0 K/mm3 (1.2-5.4) 09/23/18 04:00 Phillips # 0.7 K/mm3 (0.0-0.8) 09/23/18 04:00 Eos # 0.2 K/mm3 (0.0-0.4) 09/23/18 04:00 Baso # 0.0 K/mm3 (0.0-0.1) 09/23/18 04:00 Seg Neutrophils % 36.4 % (40.0-70.0) L 09/23/18 04:00 Seg Neutrophils # 1.7 K/mm3 (1.8-7.7) L 09/23/18 04:00 PT 14.4 Sec. (12.2-14.9) 09/23/18 04:00 INR 1.15 (0.87-1.13) H 09/23/18 04:00 Sodium 134 mmol/L (137-145) L 09/23/18 04:00 Potassium 3.6 mmol/L (3.6-5.0) 09/23/18 04:00 Chloride 98.5 mmol/L (98-107) 09/23/18 04:00 Carbon Dioxide 23 mmol/L (22-30) 09/23/18 04:00 16 mmol/L 09/23/18 04:00 BUN 29 mg/dL (9-20) H 09/23/18 04:00 1.6 mg/dL (0.8-1.5) H 09/23/18 04:00 Estimated GFR 53 ml/min 09/23/18 04:00 18 % 09/23/18 04:00 Glucose 124 mg/dL (75-100) H 09/23/18 04:00 POC Glucose 92 (70-105) 09/24/18 03:59 8.1 mg/dL (3.5-7.6) H 09/18/18 05:04 Calcium 8.9 mg/dL (8.4-10.2) 09/23/18 04:00 Phosphorus 4.90 mg/dL (2.5-4.5) H 09/17/18 17:34 Magnesium 1.80 mg/dL (1.7-2.3) 09/20/18 10:59 0.20 mg/dL (0.1-1.2) 09/19/18 05:29 AST 11 units/L (5-40) 09/19/18 05:29 ALT 6 units/L (7-56) L 09/19/18 05:29 105 units/L (35-129) 09/19/18 05:29 < 0.010 ng/mL (0.00-0.029) 09/18/18 00:44 NT-Pro-B Natriuret Pep 636.1 pg/mL (0-900) 09/17/18 17:34 6.8 g/dL (6.3-8.2) 09/19/18 05:29 3.2 g/dL (3.9-5) L 09/19/18 05:29 0.9 % 09/19/18 05:29 Triglycerides 255 mg/dL (2-149) H 09/18/18 05:48 Cholesterol 146 mg/dL (50-199) 09/18/18 05:48 76 mg/dL (50-130) 09/18/18 05:48 18 mg/dL (40-59) L 09/18/18 05:48 8.11 % 09/18/18 05:48 TSH 0.920 mlU/mL (0.270-4.200) 09/20/18 05:44 Free T4 0.81 ng/dL (0.76-1.46) 09/20/18 05:44 Yellow (Yellow) 09/18/18 17:21 Clear (Clear) 09/18/18 17:21 6.0 (5.0-7.0) 09/18/18 17:21 Ur Specific [place]ese 1.012 (1.003-1.030) 09/18/18 17:21 100 mg/dl mg/dL (Negative) 09/18/18 17:21 Neg mg/dL (Negative) 09/18/18 17:21 Neg mg/dL (Negative) 09/18/18 17:21 Neg (Negative) 09/18/18 17:21 Neg (Negative) 09/18/18 17:21 Neg (Negative) 09/18/18 17:21 < 2.0 mg/dL (<2.0) 09/18/18 17:21 Ur Leukocyte Esterase Neg (Negative) 09/18/18 17:21 1.0 /HPF (0.0-6.0) 09/18/18 17:21 1.0 /HPF (0.0-6.0) 09/18/18 17:21 58.9 mg/dL (0.1-20.0) H 09/18/18 17:21 149 mg/dL (5-11.8) H 09/18/18 17:21 Group A Strep Rapid Negative (Negative) 09/17/18 Unknown Blood Type O POSITIVE 09/23/18 08:54 Antibody Screen Negative 09/23/18 08:54 Active Medications - Current Medications Current Medications: Generic Name Dose Route Start Last Admin Trade Name Freq PRN Reason Stop Dose Admin Acetaminophen 650 mg 09/17/18 19:57 09/24/18 08:41 Tylenol PO 650 mg Q4H PRN Administration Pain MILD(1-3)/Fever >100.5/HORNE Albuterol 2.5 mg 09/17/18 19:57 Proventil IH Q4HRT PRN Shortness Of Breath Alprazolam 0.5 mg 09/21/18 16:19 09/24/18 01:09 Xanax PO 0.5 mg Q8H PRN Administration Anxiety Amlodipine Besylate 5 mg 09/22/18 13:00 09/23/18 13:55 Norvasc PO 5 mg QDAY SKY Administration Aspirin 81 mg 09/18/18 10:00 09/23/18 13:55 Baby Aspirin PO 81 mg QDAY SKY Administration Atorvastatin Calcium 40 mg 09/17/18 22:00 09/23/18 22:06 Lipitor PO 40 mg QHS SKY Administration Atropine Sulfate 1 mg 09/22/18 08:00 09/22/18 08:20 Atropine 0.1% (Cardiac) IV 1 mg ONCE PRN Administration Bradycardia Docusate Sodium 100 mg 09/17/18 22:00 09/23/18 22:06 Colace PO 100 mg BID SKY Administration Fluconazole 200 mg 09/20/18 20:00 09/23/18 13:54 Diflucan PO 09/29/18 10:01 200 mg QDAY KSY Administration Heparin Sodium (Porcine) 5,000 unit 09/17/18 22:00 09/23/18 22:08 Heparin SUB-Q 5,000 unit Q12HR SKY Administration Hydralazine HCl 100 mg 09/23/18 14:00 09/24/18 08:40 Apresoline PO 100 mg TID SKY Administration Ketorolac Tromethamine 15 mg 09/22/18 14:30 09/24/18 01:10 Toradol IV 09/27/18 14:29 15 mg Q6H PRN Administration Pain, Mild (1-3) Lidocaine HCl 15 ml 09/18/18 14:00 09/24/18 08:39 Magic Mouthwash PO 15 ml TID SKY Administration Lisinopril 40 mg 09/21/18 10:00 09/23/18 10:00 Zestril PO Not Given QDAY SKY Miscellaneous Medication 1 each 09/18/18 10:00 09/23/18 13:56 Emtricitab/Rilpiviri/Tenof Ala [Odefsey Tablet] PO 1 each QAM SKY Administration Nicotine 14 mg 09/19/18 10:00 09/23/18 13:57 Habitrol TD 14 mg QDAY SKY Administration Nitroglycerin 0.4 mg 09/17/18 20:03 Nitrostat SL Q5M PRN Chest Pain Ondansetron HCl 4 mg 09/17/18 19:57 Zofran IV Q8H PRN Nausea And Vomiting Oxycodone/Acetaminophen 1 tab 09/17/18 19:57 09/24/18 04:07 Percocet 5/325 PO 1 tab Q6H PRN Administration Pain, Moderate (4-6) Pantoprazole Sodium 40 mg 09/23/18 10:00 09/23/18 14:06 Protonix PO 40 mg DAILY SKY Administration Sodium Chloride 10 ml 09/17/18 22:00 09/23/18 22:10 Sodium Chloride Flush Syringe 10 Ml IV 10 ml BID SKY Administration Sodium Chloride 10 ml 09/17/18 19:57 Sodium Chloride Flush Syringe 10 Ml IV PRN PRN LINE FLUSH Spironolactone 25 mg 09/19/18 10:00 09/23/18 13:58 Aldactone PO 25 mg QDAY SKY Administration Nutrition/Malnutrition Assess - Dietary Evaluation Nutrition/Malnutrition Findings: Nutrition Notes Start: 09/18/18 17:16 Freq: Status: Active Protocol: Document 09/20/18 19:14 RM (Rec: 09/20/18 19:19 [email or web address]) Nutrition Notes Initial or Follow up Reassessment Current Diagnosis COPD Other Pertinent Diagnosis UTI, HIV, Schizophrenia, Dysphagia,CP Current Diet Cardiac Labs/Tests Reviewed Pertinent Medications Reviewed Height 6 ft Weight 56.9 kg [place] Body Weight (kg) 80.90 BMI 16.9 Subjective/Other Information Pt moved to ICU. Pt stated that he eats all of his meals and drinks the Ensure Enlive. Pt requested softer diet d/t throat pain and some difficulty swallowing. Percent of energy/protein needs met: 100%/100% Burn Absent Trauma Absent #1 Nutrition Diagnosis Malnutrition Diagnosis Progress(for reassessment Continues documentation) Is patient on ventilator? No Is Patient Ambulatory and/or Out of Bed Yes REE-([place] Jeor-ambulatory/OOB) [ 1822.600 NUTR.[id number]] Kcal/Kg value to use for calculation 41 Approximate Energy Requirements Using 2333 kcal/Kg Calculation Used for Recommendations Kcal/kg Additional Notes Protein Needs: 68-114g (1.2-2) Fluid Needs: 1 ml/kcal Nutrition Intervention Change Diet Order: Cardiac, Mech soft w/ground meat Add Supplement/Snack (indicate name/kcal Ensure Enlive [place] TID /protein ) Provides kCal: 1,050 Provides Protein (gm) 60 Goal #1 Meet at least 75% of calorie and protein needs via PO and ONS intakes Goal #2 Wt gain/mainetenance Anticipated Discharge Needs: Cardiac diet Follow-Up By: 09/25/18 Additional Comments Follow for PO and ONS intakes
[2018-09-24] MEDS: HABITROL TD SCH (09:29)
[2018-09-24] MEDS: NORVASC PO SCH (09:30)
[2018-09-24] MEDS: ALDACTONE PO SCH (09:30)
[2018-09-24] MEDS: PROTONIX PO SCH (09:31)
[2018-09-24] MEDS: DIFLUCAN PO SCH (09:31)
[2018-09-24] MEDS: COLACE PO SCH (09:31)
[2018-09-24] MEDS: HEPARIN SUB-Q SCH (09:33)
[2018-09-24] MEDS: NON-FORMULARY (Emtricitab/Rilpiviri/Tenof Ala [Odefsey Tablet] 1 EACH) PO SCH (09:35)
[2018-09-24] MEDS: SODIUM CHLORIDE FLUSH SYRINGE 10 ML IV SCH (09:35)
[2018-09-24] MEDS: ZESTRIL PO SCH (09:36)
[2018-09-24] MEDS: BABY ASPIRIN PO SCH (09:36)
--- NOTE | 2018-09-24 10:01 | Progress Note ---
Assessment and Plan S/p PPM implantation yesterday. Left pectoralis PPM implantation site covered with telfa and tegaderm dressing, site c/d/i. Device interrogation this AM showed normal device function, post-procedure CXR wit NAF. Pt noted to have some NSVT on telemetry - will initiate lopressor and d/c amlodipine and decrease hydralazine to allow for addition of lopressor. Currently stable cardiac status. Pt may discharge home from cardiology standpoint. Follow up in our [place] office for post-op device clinic on 10/04/2018 @ 2:30PM. Follow up in our [place] office with Dr. Poe on 10/11/2018 @ 1:00PM. The patient has been seen in conjunction with Dr. Garcia who agrees with the assessment and plan of care. - Patient Problems (1) High degree atrioventricular block Current Visit: Yes Status: Acute (2) Atypical chest pain Current Visit: Yes Status: Resolved (3) Dysphagia Current Visit: Yes Status: Acute (4) Acute kidney injury superimposed on CKD Current Visit: Yes Status: Acute (5) Hypertension Current Visit: Yes Status: Chronic Qualifiers: Hypertension type: essential hypertension Qualified Code(s): I10 - Essential (primary) hypertension (6) COPD (chronic obstructive pulmonary disease) Current Visit: Yes Status: Chronic (7) HIV antibody positive Current Visit: Yes Status: Chronic (8) Schizophrenia Current Visit: Yes Status: Chronic (9) NSVT Current Visit: Yes Status: Acute Subjective Date of service: 09/24/18 Principal diagnosis: odynophagia, atypical CP, acute on ckd, HIV, schizophrenia, AV block Interval history: pt resting in bed, no current complaints, s/p PPM implantation yesterday. Objective Last Vital Signs Temp 97.8 F 09/24/18 08:00 Pulse 70 09/24/18 09:36 Resp 13 09/24/18 08:51 BP 126/84 09/24/18 09:36 Pulse Ox 99 09/24/18 08:51 - Physical Examination General: No Apparent Distress HEENT: Positive: EOMI, Normocephaly, Mucus Membranes Moist Neck: Positive: neck supple, trachea midline Cardiac: Positive: Reg Rate and Rhythm, S1/S2 Lungs: Positive: clear to auscultation Neuro: Positive: Grossly Intact Abdomen: Positive: Soft, Active Bowel Sounds. Negative: Tender Skin: Positive: Clear. Negative: Rash Incision: Incision Site (left pectoralis PPM implantation site pressure dressing removed, site covered with telfa and tegaderm dressing, site c/d/i with no bleeding or hematoma noted) Musculoskeletal: Normal Range of Motion Extremities: Present: normal. Absent: edema - Imaging and Cardiology EKG: image reviewed - Telemetry EKG Rhythm: Sinus Rhythm - EKG Sinus rhythms and dysrhythmias: sinus rhythm AV and intraventricular conduction: 2 to 1 AV block
--- NOTE | 2018-09-24 12:29 | Discharge Summary ---
Providers - Providers Date of Admission: 09/17/18 19:58 Date of discharge: 09/24/18 Attending physician: CHEPE MANLEY 09/17/18 Consult to Cardiac Rehabilitation [CONS] Routine Reason For Exam: Phase I 09/17/18 19:58 Consult to Cardiology [CONS] Routine Consulting Provider: SILVIA POP Reason For Exam: hx PA and HTN with c/o CP 09/17/18 20:03 Consult to Physician [CONS] Routine Comment: Consulting Provider: JEFFERY GARVEY Physician Instructions: Reason For Exam: UTI , hx HIV, 09/17/18 20:11 Consult to Physician [CONS] Routine Comment: Consulting Provider: KASHIF HEARN Physician Instructions: Reason For Exam: TUAN ?? CKD, HIV + 09/17/18 20:51 Speech Therapy Evaluation and Treat [CONS] Routine Reason For Exam: ?? Dysphagia 09/19/18 16:33 Consult to Physician [CONS] Routine Comment: Consulting Provider: COLLIN KELLEY Physician Instructions: Reason For Exam: Dysphagia/odynophagia/ HIV 09/20/18 12:11 Consult to Physician [CONS] Routine Comment: Consulting Provider: MY MCRAE Physician Instructions: Reason For Exam: Cr Care consult /high degree AV block,rec by cardi Primary care physician: NEMESIO COMER Hospitalization Reason for admission: Chest pain, difficulty swallowing Condition: Stable Pertinent studies: Chest x-ray Soft tissue neck x-ray Exercise stress test Echocardiogram Renal ultrasound Procedures: ICD placement Hospital course: 61-year-old -Grenadian male with history of COPD, PA, retention, HIV who presents [facility] with complaints of intermittent left-sided chest pain with radiation to left arm and the discomfort for the past 4 days. CXR showed hyp erexpanded lungs chest of COPD. No acute cardiopulmonary abnormalities noted. Neck x-ray was unrevealing for acute abnormalities. He was found to be mildly hyponatremic with Na of 133. Elevated urine WBC at 12.0. Patient was initially scheduled for EGD, however patient had asymptomatic intermittent high degree heart block on the monitor,and EGD cancelled,Oncology Technician adv transfer to ICU, s/p placement of PPM., GI has recommended outpatient EGD upon discharge, nephrology evaluated the patient underwent renal ultrasound, no significant acute findings, Advised to avoid nephrotoxins and follow up upon discharge Today patient is comfortable in no new complaints vital signs stable physical examination unremarkable Hemodynamically and clinically stable at discharge Discharge diagnosis: --High degree heart block[Intermittent]; s/p PPM placement,stable --Dysphagia; odynophagia, improved Magic mouthwash swish and swallow Diet as tolerated, EGD cancelled due to heart block. GI w/u as out pt , continue diflucan Patient is able to tolerate a soft diet at the time of discharge Advised to advance the diet as tolerated, and follow GI --Hyponatremia/ Hypokalemia; resolved --Acute on chronic renal failure; vasomotor nephropathy Closely monitor renal function, avoid nephrotoxins, Creatinine levels significantly improved, back to baseline --HIV; continue current management per ID Patient follows with [facility], --Severe malnutrition; nutrition supplements and supportive care Nutrition consult as needed --DVT prophylaxis; Lovenox Patient is clinically stable, Clear by cardiology for discharge Patient advised to follow up with cardiology, primary care physician, GI and nephrology per schedule The high probability of a clinically significant, sudden or life threatening deterioration of the [CVS,ID,Metabolic ,renal, respiratory] system(s) required my full and direct attention, intervention and personal management. The aggregate critical care time was [32] minutes. This time is in addition to time spent performing ,reported procedures but includes the following: [x] Data Review and interpretation [x] Patient assessment and monitoring of vital signs [x] Documentation [x] Medication orders and management Plan of care is reviewed with the patient and his nurse Patient is stable at discharge Disposition: DC-01 TO HOME OR SELFCARE Time spent for discharge: 32 min Core Measure Documentation - Palliative Care Palliative Care/ Comfort Measures: Not Applicable - Core Measures Any of the following diagnoses?: none Exam - Constitutional Vitals: Temp Pulse Resp BP Pulse Ox 97.8 F 74 12 151/72 100 09/24/18 08:00 09/24/18 11:11 09/24/18 11:11 09/24/18 11:11 09/24/18 11:11 General appearance: Present: no acute distress, well-nourished - EENT Eyes: Present: PERRL, EOM intact - Neck Neck: Present: supple, normal ROM - Respiratory Respiratory effort: normal Respiratory: bilateral: diminished, negative: rales, rhonchi, wheezing - Cardiovascular Rhythm: regular - Extremities Extremities: no ischemia, No edema - Abdominal General gastrointestinal: Present: soft, non-tender, non-distended, normal bowel sounds - Integumentary Integumentary: Present: clear, warm - Musculoskeletal Musculoskeletal: strength equal bilaterally, generalized weakness - Psychiatric Psychiatric: appropriate mood/affect, cooperative - Neurologic Neurologic: moves all extremities Plan Activity: advance as tolerated Diet: other (Soft diet ,advance as tolerated) Additional Instructions: Advised to comply with medications and follow up visits. smoking cessation Follow Post Pace maker instructions. F/U post pacemaker instructions Follow up with: ARIS SANTOS MD [Staff Physician] - 7 Days (Follow up in our [place] office with Dr. Santos on 10/11/2018 @ 1:00PM. ) NEMESIO COMER MD [Primary Care Provider] - 3-5 Days EMILY KRUSE MD [Staff Physician] - 7 Days (Follow up in our [place] office for post-op device clinic on 10/04/2018 @ 2:30PM. ) DARWIN FORRESTER MD [Staff Physician] - 7 Days COLLIN KELLEY MD [Staff Physician] - 7 Days JEFFERY GARVEY MD [Staff Physician] - 7 Days Prescriptions: Spironolactone [Aldactone] 25 mg PO QDAY #30 tablet hydrALAZINE [Apresoline TAB] 50 mg PO TID #90 tab Aspirin [Aspirin BABY CHEW TAB] 81 mg PO QDAY #30 tab.chew Docusate Sodium [Colace CAP] 100 mg PO BID PRN #20 capsule PRN Reason: Constipation Fluconazole [Diflucan TAB] 200 mg PO QDAY #5 tablet Nicotine [Habitrol] 14 mg TD QDAY #30 patch AtorvaSTATin [Lipitor] 40 mg PO QHS #30 tablet Metoprolol [Lopressor TAB] 25 mg PO BID #60 tablet Nystas/Diphen/Xyl Visc/Mylanta [Magic Mouthwash] 15 ml PO TID 10 Days oral.liqd Pantoprazole [Protonix TAB] 40 mg PO DAILY #30 tablet Lisinopril [Zestril TAB] 40 mg PO QDAY #30 tablet
[2018-09-24 12:31] VITALS: BP 140/77
[2018-09-24] MEDS ORDERED: APRESOLINE PO SCH (14:00)
[2018-09-24] MEDS ORDERED: LOPRESSOR PO SCH (22:00)
[2018-09-24 22:03] LABS: ANA Screen, IFA Negative (Negative)
== END 2018-09-24 14:49 | disposition home or self-care (01) | DRG 242 ==
LOC: ED 15:25 → OBSVTOIN 19:58 → 4A 19:58 → CC1 09-20 13:49
PROVIDERS: ADMIT Internal Medicine; ATTEND Internal Medicine
PROC: 0JH606Z Insertion of Pacemaker, Dual Chamber into Chest Subcutaneous Tissue and Fascia, Open Approach (ICD-10-PCS; 2018-09-23)
PROC: 02HK3JZ Insertion of Pacemaker Lead into Right Ventricle, Percutaneous Approach (ICD-10-PCS; 2018-09-23)
PROC: 02H63JZ Insertion of Pacemaker Lead into Right Atrium, Percutaneous Approach (ICD-10-PCS; 2018-09-23)
PROC: 4B02XSZ Measurement of Cardiac Pacemaker, External Approach (ICD-10-PCS; principal; 2018-09-24)
DX: I44.2 Atrioventricular block, complete (principal); N17.0 Acute kidney failure with tubular necrosis; E43 Unspecified severe protein-calorie malnutrition; B20 Human immunodeficiency virus [HIV] disease; E87.1 Hypo-osmolality and hyponatremia; N39.0 Urinary tract infection, site not specified; Z68.1 Body mass index [BMI] 19.9 or less, adult; E87.2 Acidosis; I42.9 Cardiomyopathy, unspecified; I47.2 Ventricular tachycardia; J44.9 Chronic obstructive pulmonary disease, unspecified; F29 Unspecified psychosis not due to a substance or known physiological condition; I12.9 Hypertensive chronic kidney disease with stage 1 through stage 4 chronic kidney disease, or unspecified chronic kidney disease; N18.9 Chronic kidney disease, unspecified; R13.10 Dysphagia, unspecified; R07.89 Other chest pain; F20.9 Schizophrenia, unspecified; E87.6 Hypokalemia; N28.1 Cyst of kidney, acquired; I25.2 Old myocardial infarction
CPT/HCPCS: 33208; 36415; 70360; 71045; 71046; 76770; 78452; 80048; 80053; 80061; 81001; 82570; 82962; 83735; 83880; 84100; 84156; 84439; 84443; 84484; 84550; 85025; 85027; 85610; 86038; 86850; 86900; 86901; 87040; 87086; 87116; 87430; 93005; 93010; 93017; 93306; 94640; 94644; 96361; 96365; 96372; 96375; G0378; A9270-GY; A9502; C1769; C1779; C1785; C1892; C9113; J0360; J0461; J0690; J0696; J1644; J1885; J2250; J2270; J2405; J2785; J3010; J3370; J3480; J7030; J7040; J7120; Q9967

== ENCOUNTER 2018-09-27 13:08 | Emergency (ER) | payer MEDICARE ==
[2018-09-27] MEDS ORDERED: ASPIRIN PO ONE (13:39)
--- NOTE | 2018-09-27 13:40 | Event Note ---
ED Screening Note Date of service: 09/27/18 Time: 13:37 ED Screening Note: This is a 62 y.o. M. that presents to the ER with throbbing/sharp pain to left chest radiating to left shoulder. Pacemaker placed Sunday. PCP Dr. Candelario instructed patient f/u in ER. This initial assessment/diagnostic orders/clinical plan/treatment(s) is/are subject to change based on patients health status, clinical progression and re- assessment by fellow clinical providers in the ED. Further treatment and workup at subsequent clinical providers discretion. Patient/guardian urged not to elope from the ED as their condition may be serious if not clinically assessed and managed. Initial orders include: Labs and CXR
[2018-09-27 13:58] LABS: Hematocrit 32.8 % (35.5-45.6); Hemoglobin 11.4 gm/dl (11.8-15.2); Mean Corpuscular HGB Conc 35 % (32-34); Mean Corpuscular Volume 98 fl (84-94); Platelet Count 191 K/mm3 (140-440); Red Blood Count 3.36 M/mm3 (3.65-5.03); Red Cell Distribution Width 14.2 % (13.2-15.2)
[2018-09-27 14:07] LABS: BUN/Creatinine Ratio 11; Blood Urea Nitrogen 19 mg/dL (9-20); Calcium 8.8 mg/dL (8.4-10.2); Hemolysis Index 12
--- NOTE | 2018-09-27 15:04 | XRay Report ---
CHEST 1 VIEW 09/27/2018 1:39 PM INDICATION / CLINICAL INFORMATION: Chest Pain. COMPARISON: 09/23/18 FINDINGS: SUPPORT DEVICES: None. HEART / MEDIASTINUM: Heart is normal size. Left-sided dual-lead cardiac pacemaker is unchanged. LUNGS / PLEURA: No significant pulmonary or pleural abnormality. Right upper lobe calcified granuloma s are unchanged. No pneumothorax. ADDITIONAL FINDINGS: No significant additional findings. IMPRESSION: 1. No acute findings. No significant change. Signer Name: Clemencia Paulino MD Signed: 09/27/2018 2:59 PM Workstation Name: [id number]
[2018-09-27 15:12] LABS: Total Cells Counted 100
[2018-09-27 15:13] LABS: Anisocytosis Few
[2018-09-27 15:14] LABS: Platelet Estimate Consistent w Auto
[2018-09-27] MEDS ORDERED: NORCO 5/325 PO ONE (15:26)
--- NOTE | 2018-09-27 15:39 | Emergency Department Report ---
ED General Adult HPI - General Chief complaint: Pain General Stated complaint: L SHOULDER PAIN Time Seen by Provider: 09/27/18 13:36 Source: patient Mode of arrival: Ambulatory Limitations: No Limitations - History of Present Illness Initial comments: 62-year-old -[place] male with history of HIV, history of hyperlipidemia, schizophrenia, among other medical issues, presents to ED with pain at his pacemaker insertion site. He had a pacemaker implanted on 09/23/2018 for High degree AV block and pauses, he states he's been having stretching type of pain at the site since. Pain is 6 out of 10, sharp, without any radiation. No Fever, no discharge at the site. - Related Data Home Medications Medication Instructions Recorded Confirmed Last Taken Emtricitab/Rilpiviri/Tenof [place] 1 each PO QAM 09/17/18 09/17/18 Unknown [Odefsey Tablet] HYDROcodone/APAP 10-325 [[place] 1 each PO Q6H PRN 09/17/18 09/17/18 Unknown 10-325 mg TAB] Ibuprofen [Motrin 800 MG tab] 800 mg PO BID PRN 09/17/18 09/17/18 Unknown Previous Rx's Medication Instructions Recorded Last Taken Type Aspirin [Aspirin BABY CHEW TAB] 81 mg PO QDAY #30 tab.chew 09/24/18 Unknown Rx AtorvaSTATin [Lipitor] 40 mg PO QHS #30 tablet 09/24/18 Unknown Rx Docusate Sodium [Colace CAP] 100 mg PO BID PRN #20 capsule 09/24/18 Unknown Rx Fluconazole [Diflucan TAB] 200 mg PO QDAY #5 tablet 09/24/18 Unknown Rx Lisinopril [Zestril TAB] 40 mg PO QDAY #30 tablet 09/24/18 Unknown Rx Metoprolol [Lopressor TAB] 25 mg PO BID #60 tablet 09/24/18 Unknown Rx Nicotine [Habitrol] 14 mg TD QDAY #30 patch 09/24/18 Unknown Rx Nystas/Diphen/Xyl Visc/Mylanta 15 ml PO TID 10 Days oral.liqd 09/24/18 Unknown Rx [Magic Mouthwash] Pantoprazole [Protonix TAB] 40 mg PO DAILY #30 tablet 09/24/18 Unknown Rx Spironolactone [Aldactone] 25 mg PO QDAY #30 tablet 09/24/18 Unknown Rx hydrALAZINE [Apresoline TAB] 50 mg PO TID #90 tab 09/24/18 Unknown Rx Allergies Allergy/AdvReac Type Severity Reaction Status Date / Time Lettuce Allergy Unknown Uncoded 09/18/18 17:27 ED Review of Systems ROS: Stated complaint: L SHOULDER PAIN Other details as noted in HPI Comment: All other systems reviewed and negative ENT: denies: ear pain Respiratory: denies: cough Cardiovascular: chest pain Endocrine: denies: flushing Gastrointestinal: denies: abdominal pain, nausea ED Past Medical Hx - Past Medical History Hx Hypertension: Yes Hx Heart Attack/AMI: Yes Hx Congestive Heart Failure: No Hx Diabetes: No Hx Psychiatric Treatment: Yes Hx Asthma: No Hx COPD: Yes Hx HIV: Yes Additional medical history: Schizophrenia - Surgical History Hx Pacemaker: Yes - Social History Smoking Status: Current Every Day Smoker Substance Use Type: None - Medications Home Medications: Home Medications Medication Instructions Recorded Confirmed Last Taken Type Emtricitab/Rilpiviri/Tenof [place] 1 each PO QAM 09/17/18 09/17/18 Unknown History [Odefsey Tablet] HYDROcodone/APAP 10-325 [[place] 1 each PO Q6H PRN 09/17/18 09/17/18 Unknown History 10-325 mg TAB] Ibuprofen [Motrin 800 MG tab] 800 mg PO BID PRN 09/17/18 09/17/18 Unknown History Aspirin [Aspirin BABY CHEW TAB] 81 mg PO QDAY #30 tab.chew 09/24/18 Unknown Rx AtorvaSTATin [Lipitor] 40 mg PO QHS #30 tablet 09/24/18 Unknown Rx Docusate Sodium [Colace CAP] 100 mg PO BID PRN #20 capsule 09/24/18 Unknown Rx Fluconazole [Diflucan TAB] 200 mg PO QDAY #5 tablet 09/24/18 Unknown Rx Lisinopril [Zestril TAB] 40 mg PO QDAY #30 tablet 09/24/18 Unknown Rx Metoprolol [Lopressor TAB] 25 mg PO BID #60 tablet 09/24/18 Unknown Rx Nicotine [Habitrol] 14 mg TD QDAY #30 patch 09/24/18 Unknown Rx Nystas/Diphen/Xyl Visc/Mylanta 15 ml PO TID 10 Days oral.liqd 09/24/18 Unknown Rx [Magic Mouthwash] Pantoprazole [Protonix TAB] 40 mg PO DAILY #30 tablet 09/24/18 Unknown Rx Spironolactone [Aldactone] 25 mg PO QDAY #30 tablet 09/24/18 Unknown Rx hydrALAZINE [Apresoline TAB] 50 mg PO TID #90 tab 09/24/18 Unknown Rx ED Physical Exam - General Limitations: No Limitations General appearance: alert, in no apparent distress - Head Head exam: Present: atraumatic, normocephalic - Eye Eye exam: Present: normal appearance, PERRL, EOMI - ENT ENT exam: Present: normal exam, normal orophraynx - Neck Neck exam: Present: normal inspection - Respiratory Respiratory exam: Present: normal lung sounds bilaterally - Cardiovascular Cardiovascular Exam: Present: regular rate, normal rhythm, other (pacemaker site appears d/c/i) - GI/Abdominal GI/Abdominal exam: Present: soft ED Course Vital Signs 09/27/18 13:37 Temperature 98.5 F Pulse Rate 75 Respiratory 18 Rate Blood Pressure 162/91 O2 Sat by Pulse 100 Oximetry ED Medical Decision Making - Lab Data Result diagrams: 09/27/18 13:44 09/27/18 13:44 Critical care attestation.: If time is entered above; I have spent that time in minutes in the direct care of this critically ill patient, excluding procedure time. ED Disposition Condition: Stable Referrals: MICAH BAUTISTA MD [Primary Care Provider] - 3-5 Days
[2018-09-27 16:11] VITALS: BP 173/89
== END 2018-09-27 16:15 | disposition home or self-care (01) ==
LOC: ED 13:08
DX: T82.847A Pain due to cardiac prosthetic devices, implants and grafts, initial encounter (principal); I10 Essential (primary) hypertension; I25.2 Old myocardial infarction; J44.9 Chronic obstructive pulmonary disease, unspecified; F20.9 Schizophrenia, unspecified; F17.200 Nicotine dependence, unspecified, uncomplicated; Z79.899 Other long term (current) drug therapy; Z91.09 Other allergy status, other than to drugs and biological substances; Y92.89 Other specified places as the place of occurrence of the external cause
CPT/HCPCS: 36415; 71045; 80048; 84484; 85007; 85025; 93005; 93010

== ENCOUNTER 2018-11-06 10:30 | Inpatient (IN) | payer MEDICARE ==
[2018-11-06] MEDS ORDERED: NARCAN 2 MG/2 ML IV ONE ×2 (11:45→13:56)
[2018-11-06] MEDS ORDERED: ZOFRAN IV ONE (11:45)
--- NOTE | 2018-11-06 12:01 | Emergency Department Report ---
HPI - General Chief Complaint: Overdose Time Seen by Provider: 11/06/18 11:33 - HPI HPI: Room 8 The patient is a 62-year-old male presenting with a chief complaint of unresponsiveness. Per EMS the patient was found unresponsive by his roommate. EMS reports that there were bottles of prescription medications felt near the patient. EMS immunization 0.5 mg of Narcan prior to arrival and the patient was alert and awake upon arrival to the ED. My evaluation the patient is somnolent and awakens to tactile stimuli but does not answer questions. Location: [See above] Duration: [See above] Quality: [See above] Severity: [See above] Timing: [See above] Context: [See above] Modifying factors: [See above] Associated signs and symptoms: [see above] ED Past Medical Hx - Past Medical History Hx Hypertension: Yes Hx Heart Attack/AMI: Yes Hx Psychiatric Treatment: Yes Hx COPD: Yes Hx HIV: Yes Additional medical history: Schizophrenia - Surgical History Hx Pacemaker: Yes - Family History Family history: no significant - Social History Smoking Status: Unknown if ever smoked Substance Use Type: Alcohol - Medications Home Medications: Home Medications Medication Instructions Recorded Confirmed Last Taken Type Emtricitab/Rilpiviri/Tenof [place] 1 each PO QAM 09/17/18 09/17/18 Unknown History [Odefsey Tablet] Ibuprofen [Motrin 800 MG tab] 800 mg PO BID PRN 09/17/18 09/17/18 Unknown History Aspirin [Aspirin BABY CHEW TAB] 81 mg PO QDAY #30 tab.chew 09/24/18 Unknown Rx AtorvaSTATin [Lipitor] 40 mg PO QHS #30 tablet 09/24/18 Unknown Rx Docusate Sodium [Colace CAP] 100 mg PO BID PRN #20 capsule 09/24/18 Unknown Rx Fluconazole [Diflucan TAB] 200 mg PO QDAY #5 tablet 09/24/18 Unknown Rx Lisinopril [Zestril TAB] 40 mg PO QDAY #30 tablet 09/24/18 Unknown Rx Metoprolol [Lopressor TAB] 25 mg PO BID #60 tablet 09/24/18 Unknown Rx Nicotine [Habitrol] 14 mg TD QDAY #30 patch 09/24/18 Unknown Rx Nystas/Diphen/Xyl Visc/Mylanta 15 ml PO TID 10 Days oral.liqd 09/24/18 Unknown Rx [Magic Mouthwash] Pantoprazole [Protonix TAB] 40 mg PO DAILY #30 tablet 09/24/18 Unknown Rx Spironolactone [Aldactone] 25 mg PO QDAY #30 tablet 09/24/18 Unknown Rx hydrALAZINE [Apresoline TAB] 50 mg PO TID #90 tab 09/24/18 Unknown Rx HYDROcodone/APAP 10-325 [[place] 1 each PO Q6H PRN #6 tablet 09/27/18 Unknown Rx 10-325 mg TAB] ED Review of Systems ROS: Stated complaint: OVERDOSE Other details as noted in HPI Comment: Unobtainable due to pts medical conditions Physical Exam - Physical Exam Vital Signs: Vital Signs 11/06/18 10:46 Temperature 98.4 F Pulse Rate 91 H Respiratory 18 Rate Blood Pressure 152/88 [Left] O2 Sat by Pulse 100 Oximetry Physical Exam: GENERAL: The patient is well-developed well-nourished male sleeping on stretcher very lethargic awakens minimally to tactile stimuli but does not speak. [] HEENT: Normocephalic. Atraumatic. Extraocular motions are intact. Patient has moist mucous membranes. NECK: Supple. Trachea midline CHEST/LUNGS: Clear to auscultation. There is no respiratory distress noted. HEART/CARDIOVASCULAR: Regular. There is no tachycardia. There is no gallop rub or murmur. ABDOMEN: Abdomen is soft, nontender. Patient has normal bowel sounds. There is no abdominal distention. SKIN: There is no rash. There is no edema. There is no diaphoresis. NEURO: The patient is obtunded MUSCULOSKELETAL: There is no evidence of acute injury. ED Course Vital Signs 11/06/18 10:46 Temperature 98.4 F Pulse Rate 91 H Respiratory 18 Rate Blood Pressure 152/88 [Left] O2 Sat by Pulse 100 Oximetry - Reevaluation(s) Reevaluation #1: 11/06/18 12:11 Status post Narcan the patient admits to taking 4 oxycodone today but does not offer any more information. ED Medical Decision Making - Lab Data Result diagrams: 11/06/18 11:58 11/06/18 11:58 Laboratory Tests 11/06/18 11/06/18 11/06/18 11:58 11:58 11:58 WBC RBC Hgb Hct MCV MCH MCHC RDW Plt Count Lymph % (Auto) Allen % (Auto) Eos % (Auto) Baso % (Auto) Lymph # Allen # Eos # Baso # Seg Neutrophils % Seg Neutrophils # Sodium 145 Potassium 3.5 L Chloride 112.8 H Carbon Dioxide 16 L Anion Gap 20 BUN 31 H Creatinine 2.5 H Estimated GFR 32 BUN/Creatinine Ratio 12 Glucose 98 Calcium 8.9 Ammonia Total Creatine Kinase CK-MB (CK-2) CK-MB (CK-2) Rel Index Troponin T Urine Color Urine Turbidity Urine pH Ur Specific [place] Urine Protein Urine Glucose (UA) Urine Ketones Urine Blood Urine Nitrite Urine Bilirubin Urine Urobilinogen Ur Leukocyte Esterase Urine WBC (Auto) Urine RBC (Auto) Urine Mucus Salicylates 28.0 H Urine Opiates Screen Urine Methadone Screen Acetaminophen < 5.0 L Ur Barbiturates Screen Ur Phencyclidine Scrn Ur Amphetamines Screen U Benzodiazepines Scrn Urine Cocaine Screen U Marijuana (THC) Screen Drugs of Abuse Note Plasma/Serum Alcohol 11/06/18 11/06/18 11/06/18 11:58 11:58 11:58 WBC 8.2 RBC 3.64 L Hgb 11.9 Hct 37.2 MCV 102 H MCH 33 H MCHC 32 RDW 17.1 H Plt Count 156 Lymph % (Auto) 18.9 Allen % (Auto) 9.1 H Eos % (Auto) 0.3 Baso % (Auto) 0.4 Lymph # 1.6 Allen # 0.8 Eos # 0.0 Baso # 0.0 Seg Neutrophils % 71.3 H Seg Neutrophils # 5.9 Sodium Potassium Chloride Carbon Dioxide Anion Gap BUN Creatinine Estimated GFR BUN/Creatinine Ratio Glucose Calcium Ammonia 21.0 L Total Creatine Kinase CK-MB (CK-2) CK-MB (CK-2) Rel Index Troponin T Urine Color Urine Turbidity Urine pH Ur Specific [place] Urine Protein Urine Glucose (UA) Urine Ketones Urine Blood Urine Nitrite Urine Bilirubin Urine Urobilinogen Ur Leukocyte Esterase Urine WBC (Auto) Urine RBC (Auto) Urine Mucus Salicylates Urine Opiates Screen Urine Methadone Screen Acetaminophen Ur Barbiturates Screen Ur Phencyclidine Scrn Ur Amphetamines Screen U Benzodiazepines Scrn Urine Cocaine Screen U Marijuana (THC) Screen Drugs of Abuse Note Plasma/Serum Alcohol < 0.01 11/06/18 11/06/18 11/06/18 11:58 12:12 12:12 WBC RBC Hgb Hct MCV MCH MCHC RDW Plt Count Lymph % (Auto) Allen % (Auto) Eos % (Auto) Baso % (Auto) Lymph # Allen # Eos # Baso # Seg Neutrophils % Seg Neutrophils # Sodium Potassium Chloride Carbon Dioxide Anion Gap BUN Creatinine Estimated GFR BUN/Creatinine Ratio Glucose Calcium Ammonia Total Creatine Kinase 172 H CK-MB (CK-2) 4.0 CK-MB (CK-2) Rel Index 2.3 Troponin T < 0.010 Urine Color Yellow Urine Turbidity Clear Urine pH 5.0 Ur Specific [place] 1.024 Urine Protein >2000 mg dl Urine Glucose (UA) Neg Urine Ketones Neg Urine Blood Neg Urine Nitrite Neg Urine Bilirubin Neg Urine Urobilinogen < 2.0 Ur Leukocyte Esterase Neg Urine WBC (Auto) 1.0 Urine RBC (Auto) 4.0 Urine Mucus Few Salicylates Urine Opiates Screen Presumptive negative Urine Methadone Screen Presumptive negative Acetaminophen Ur Barbiturates Screen Presumptive negative Ur Phencyclidine Scrn Presumptive negative Ur Amphetamines Screen Presumptive negative U Benzodiazepines Scrn Presumptive negative Urine Cocaine Screen Presumptive negative U Marijuana (THC) Screen Presumptive negative Drugs of Abuse Note Disclamer Plasma/Serum Alcohol - EKG Data -: EKG Interpreted by Nv EKG shows normal: sinus rhythm Rate: normal - EKG Data When compared to previous EKG there are: previous EKG unavailable Interpretation: nonspecific ST-T wave asia (T wave inversion lead aVL) - Radiology Data Radiology results: report reviewed (CT head), image reviewed (CT head) [place] [address] Cat Scan Report Signed Patient: GEGE CASTILLO MR#: [id number] : 1955 Acct:[id number] Age/Sex: 62 / M ADM Date: 11/06/18 Loc: ED Attending Dr: Ordering Physician: DOMINIC DUBOIS MD Date of Service: 11/06/18 Procedure(s): CT head/brain wo con Accession Number(s): [id number] cc: DOMINIC DUBOIS MD CT head/brain wo con INDICATION: altered mental status. TECHNIQUE: Routine CT head without contrast. All CT scans at this location are performed using CT dose reduction for ALARA by means of automated exposure control. COMPARISON: None. FINDINGS: BRAIN / INTRACRANIAL CONTENTS: No acute hemorrhage, mass effect, midline shift, or hydrocephalus. No appreciable acute large territorial or lacunar infarct. No chronic infarct or focal atrophy. Normal brain volume and ventricular/sulcal size for age. ORBITS: No significant abnormality of visualized orbits. SINUSES / MASTOIDS: No significant abnormality of visualized sinuses and mastoid air cells. ADDITIONAL FINDINGS: None. IMPRESSION: 1. No acute intracranial abnormality. Signer Name: Wilton Devi MD Signed: 11/06/2018 2:23 PM Workstation Name: [id number] Transcribed By: ARIANA Dictated By: Wilton Devi MD Electronically Authenticated By: Wilton Devi MD Signed Date/Time: 11/06/18 1423 DD/ 142 TD/TT: - Medical Decision Making Patient continues to become somnolent when Narcan wears off. Will admit the patient to the hospital for further evaluation - Differential Diagnosis narcotic overdose Critical care attestation.: If time is entered above; I have spent that time in minutes in the direct care of this critically ill patient, excluding procedure time. ED Disposition Clinical Impression: Altered mental status Disposition: -09 OP ADMIT IP TO THIS HOSP Is pt being admited?: Yes Does the pt Need Aspirin: Yes Condition: Fair Referrals: PRIMARY CARE, [Primary Care Provider] - 3-5 Days Time of Disposition: 15:58 (hospitalist paged (Dr Encinas))
[2018-11-06 12:31] LABS: Basophils % (Auto) 0.4 % (0.0-1.8); Eosinophils % (Auto) 0.3 % (0.0-4.3); Hematocrit 37.2 % (35.5-45.6); Hemoglobin 11.9 gm/dl (11.8-15.2); Lymphocytes # (Auto) 1.6 K/mm3 (1.2-5.4); Lymphocytes % (Auto) 18.9 % (13.4-35.0); Mean Corpuscular HGB Conc 32 % (32-34); Mean Corpuscular Volume 102 fl (84-94); Monocytes # (Auto) 0.8 K/mm3 (0.0-0.8); Monocytes % (Auto) 9.1 % (0.0-7.3); Platelet Count 156 K/mm3 (140-440); Red Blood Count 3.64 M/mm3 (3.65-5.03); Red Cell Distribution Width 17.1 % (13.2-15.2)
[2018-11-06 12:44] LABS: Bilirubin,Urine NEG (Negative); Blood,Urine NEG (Negative); Color,Urine Yellow (Yellow); Mucus,Urine FEW /HPF; Urobilinogen,Urine < 2.0 mg/dL (<2.0)
[2018-11-06 12:52] LABS: Calcium 8.9 mg/dL (8.4-10.2)
[2018-11-06 12:54] LABS: Amphetamine Screen,Urine PRESUMPTIVE NEGATIVE; Benzodiazepines Screen,Urine PRESUMPTIVE NEGATIVE; Cannabinoid Screen,Urine PRESUMPTIVE NEGATIVE; Cocaine Screen,Urine PRESUMPTIVE NEGATIVE; Methadone Screen,Urine PRESUMPTIVE NEGATIVE; Opiate Screen,Urine PRESUMPTIVE NEGATIVE
[2018-11-06 13:09] LABS: Protein,Urine >2000 mg dL mg/dL (Negative)
--- NOTE | 2018-11-06 14:28 | Cat Scan Report ---
CT head/brain wo con INDICATION: altered mental status. TECHNIQUE: Routine CT head without contrast. All CT scans at this location are performed using CT dos e reduction for ALARA by means of automated exposure control. COMPARISON: None. FINDINGS: BRAIN / INTRACRANIAL CONTENTS: No acute hemorrhage, mass effect, midline shift, or hydrocephalus. No appreciable acute large territorial or lacunar infarct. No chronic infarct or focal atrophy. Normal b rain volume and ventricular/sulcal size for age. ORBITS: No significant abnormality of visualized orbits. SINUSES / MASTOIDS: No significant abnormality of visualized sinuses and mastoid air cells. ADDITIONAL FINDINGS: None. IMPRESSION: 1. No acute intracranial abnormality. Signer Name: Wilton Devi MD Signed: 11/06/2018 2:23 PM Workstation Name: [id number]
--- NOTE | 2018-11-06 16:15 | History and Physical Report ---
History of Present Illness Chief complaint: Unresponsive History of present illness: 62 YO Male with HTN, COPD, [place], HIV, Schizophrenia, [place], Cardiomyopathy S/P Pacemaker placement presents to ED for evaluation. The patient is lethargic and unable to provide history at time of my exam. Pt was found down and unresponsive today by his roommate. EMS was notified, and upon arrival the patient was found to be unresponsive. EMS reports finding empty prescription bottles near the patient. No medication type reported. Pt treated with Narcan and transported to [facility]. Pt seen and evaluated in ED and found to have Encephalopathy, TUAN, Acidosis as elevated salicylate level. Pt is lethargic but has a positive gag reflex and is able to protect his airway. Nephrology consulted in ED. Pt admitted to telemetry. No further history obtainable. Mental Health consulted for possible overdose. Prior admission on 09/17/18 reviewed. All listed medication reconciled at time of admission. Past History Past Medical History: acute KS, COPD, HIV/AIDS, hypertension, other (Cardiomyopathy, malnutrition, Schizophrenia) Past Surgical History: No surgical history, Other (reviewed) Social history: Family history: hypertension Medications and Allergies Allergies Allergy/AdvReac Type Severity Reaction Status Date / Time Lettuce Allergy Unknown Uncoded 09/18/18 17:27 Home Medications Medication Instructions Recorded Confirmed Last Taken Type Emtricitab/Rilpiviri/Tenof Ala 1 each PO QAM 09/17/18 11/06/18 Unknown History [Odefsey Tablet] Ibuprofen [Motrin 800 MG tab] 800 mg PO BID PRN 09/17/18 11/06/18 Unknown History Aspirin [Aspirin BABY CHEW TAB] 81 mg PO QDAY #30 tab.chew 09/24/18 11/06/18 Unknown Rx AtorvaSTATin [Lipitor] 40 mg PO QHS #30 tablet 09/24/18 11/06/18 Unknown Rx Docusate Sodium [Colace CAP] 100 mg PO BID PRN #20 capsule 09/24/18 11/06/18 Unknown Rx Lisinopril [Zestril TAB] 40 mg PO QDAY #30 tablet 09/24/18 11/06/18 Unknown Rx Metoprolol [Lopressor TAB] 25 mg PO BID #60 tablet 09/24/18 11/06/18 Unknown Rx Nicotine [Habitrol] 14 mg TD QDAY #30 patch 09/24/18 11/06/18 Unknown Rx Nystas/Diphen/Xyl Visc/Mylanta 15 ml PO TID 10 Days oral.liqd 09/24/18 11/06/18 Unknown Rx [Magic Mouthwash] Pantoprazole [Protonix TAB] 40 mg PO DAILY #30 tablet 09/24/18 11/06/18 Unknown Rx Spironolactone [Aldactone] 25 mg PO QDAY #30 tablet 09/24/18 11/06/18 Unknown Rx hydrALAZINE [Apresoline TAB] 50 mg PO TID #90 tab 09/24/18 11/06/18 Unknown Rx HYDROcodone/APAP 10-325 [[place] 1 each PO Q6H PRN #6 tablet 09/27/18 11/06/18 Unknown Rx 10-325 mg TAB] Review of Systems ROS unobtainable: due to mental status Exam - Constitutional Vitals: Temp Pulse Resp BP Pulse Ox 98.4 F 87 19 143/79 100 11/06/18 10:46 11/06/18 13:30 11/06/18 13:30 11/06/18 13:30 11/06/18 13:29 General appearance: Present: mild distress, cachectic - EENT Eyes: Present: miosis ENT: hearing intact, clear oral mucosa - Neck Neck: Present: supple, normal ROM - Respiratory Respiratory effort: normal Respiratory: bilateral: CTA - Cardiovascular Heart Sounds: Present: S1 & S2. Absent: rub, click - Extremities Extremities: pulses symmetrical, No edema Peripheral Pulses: within normal limits - Abdominal General gastrointestinal: Present: soft, non-tender, non-distended, normal bowel sounds Male genitourinary: Present: normal - Integumentary Integumentary: Present: clear, warm, dry - Musculoskeletal Musculoskeletal: generalized weakness - Psychiatric Psychiatric: no appropriate mood/affect, no intact judgment & insight, no memory intact - Neurologic Neurologic: CNII-XII intact, moves all extremities Results - Labs CBC & Chem 7: 11/06/18 11:58 11/07/18 04:25 Labs: Abnormal lab results 11/06/18 11/06/18 11/06/18 Range/Units 11:58 11:58 11:58 RBC (3.65-5.03) M/mm3 MCV (84-94) fl MCH (28-32) pg RDW (13.2-15.2) % [place] % (Auto) (0.0-7.3) % Seg Neutrophils % (40.0-70.0) % Potassium 3.5 L (3.6-5.0) mmol/L Chloride 112.8 H (98-107) mmol/L Carbon Dioxide 16 L (22-30) mmol/L BUN 31 H (9-20) mg/dL Creatinine 2.5 H (0.8-1.5) mg/dL Ammonia (25-60) umol/L Total Creatine Kinase (55-170) units/L Salicylates 28.0 H (2.8-20.0) mg/dL Acetaminophen < 5.0 L (10.0-30.0) ug/mL 11/06/18 11/06/18 11/06/18 Range/Units 11:58 11:58 11:58 RBC 3.64 L (3.65-5.03) M/mm3 MCV 102 H (84-94) fl MCH 33 H (28-32) pg RDW 17.1 H (13.2-15.2) % [place] % (Auto) 9.1 H (0.0-7.3) % Seg Neutrophils % 71.3 H (40.0-70.0) % Potassium (3.6-5.0) mmol/L Chloride (98-107) mmol/L Carbon Dioxide (22-30) mmol/L BUN (9-20) mg/dL Creatinine (0.8-1.5) mg/dL Ammonia 21.0 L (25-60) umol/L Total Creatine Kinase 172 H (55-170) units/L Salicylates (2.8-20.0) mg/dL Acetaminophen (10.0-30.0) ug/mL Assessment and Plan - Patient Problems (1) Encephalopathy Current Visit: Yes Status: Acute Plan to address problem: CT Head, neuro check, seizure precations, aspiration precautions, supportive care. (2) TUAN (acute kidney injury) Current Visit: Yes Status: Acute Plan to address problem: IVF resuscitation therapy, nephrology consulted in ED, Urine electrolytes, monitor uop q shift, (3) Acidosis Current Visit: Yes Status: Acute Plan to address problem: IVf resuscitation therapy, IV bicarbonate therapy, repeat bmp, supportive care. (4) HIV (human immunodeficiency virus infection) Current Visit: Yes Status: Acute Qualifiers: HIV symptom status: unspecified Qualified Code(s): B20 - Human immunodeficiency virus [HIV] disease Plan to address problem: continue antiretroviral therapy, Outpatient I/D F/U care. (5) HTN (hypertension) Current Visit: Yes Status: Acute Qualifiers: Hypertension type: essential hypertension Qualified Code(s): I10 - Essential (primary) hypertension Plan to address problem: Monitor BP q shift, continue medical management (6) Overdose Current Visit: Yes Status: Suspected Qualifiers: Encounter type: initial encounter Plan to address problem: Mental Health consulted for suspected overdose/ Schizophrenia. (7) DVT prophylaxis Current Visit: Yes Status: Acute Plan to address problem: SCD to BLE while in bed, ambulation TID and prn in hallway, in AM.
[2018-11-06] MEDS ORDERED: TYLENOL PO PRN (20:23)
[2018-11-06] MEDS ORDERED: PROVENTIL IH PRN (20:23)
[2018-11-06] MEDS ORDERED: SODIUM CHLORIDE FLUSH SYRINGE 10 ML IV PRN (20:23)
[2018-11-06] MEDS ORDERED: ZOFRAN IV PRN (20:23)
[2018-11-06] MEDS ORDERED: COLACE PO PRN (20:24)
[2018-11-06] MEDS ORDERED: IBUPROFEN PO PRN (20:24)
[2018-11-06] MEDS: LOPRESSOR PO SCH (22:28)
[2018-11-06] MEDS: SODIUM CHLORIDE FLUSH SYRINGE 10 ML IV SCH (22:29)
[2018-11-07 06:18] LABS: Calcium 8.9 mg/dL (8.4-10.2)
[2018-11-07] MEDS: HABITROL TD SCH (09:26)
[2018-11-07] MEDS: PROTONIX PO SCH (09:26)
[2018-11-07] MEDS: BABY ASPIRIN PO SCH (09:27)
[2018-11-07] MEDS: ALDACTONE PO SCH (09:27)
[2018-11-07] MEDS: APRESOLINE PO SCH ×3 (09:27→22:36)
[2018-11-07] MEDS: SODIUM CHLORIDE FLUSH SYRINGE 10 ML IV SCH ×2 (09:28→20:59)
[2018-11-07] MEDS: LOPRESSOR PO SCH ×2 (09:28→20:59)
[2018-11-07] MEDS: MAGIC MOUTHWASH PO SCH ×3 (09:29→22:34)
[2018-11-07] MEDS ORDERED: NON-FORMULARY (Emtricitab/Rilpiviri/Tenof Ala [Odefsey Tablet] 1 EACH) PO SCH ×2 (10:00)
[2018-11-07] MEDS ORDERED: ZESTRIL PO SCH (10:00)
[2018-11-07] MEDS: STERILE WATER IV SCH ×2 (11:59→22:57)
[2018-11-07] MEDS: SODIUM BICARBONATE IV SCH ×2 (11:59→22:57)
[2018-11-07] MEDS ORDERED: STERILE IV SCH (12:00)
[2018-11-07] MEDS ORDERED: SODIUM BICARBONATE IV SCH (12:00)
[2018-11-07] MEDS ORDERED: WATER IV SCH (12:00)
[2018-11-07] MEDS: NORCO 10/325 PO PRN ×2 (13:03→20:59)
--- NOTE | 2018-11-07 16:32 | Progress Note ---
Assessment and Plan Assessment and plan: Encephalopathy CT Head negative, neuro check, seizure precautions, aspiration precautions, supportive care. TUAN (acute kidney injury) IVF resuscitation therapy, nephrology consulted, Urine electrolytes, monitor uop q shift, F/U BMP in am Acidosis IVf resuscitation therapy, IV bicarbonate therapy, repeat bmp, supportive care. HIV (human immunodeficiency virus infection) continue antiretroviral therapy, Outpatient I/D F/U care. HTN (hypertension) Monitor BP q shift, continue medical management Overdose Mental Health consulted for suspected overdose/ Schizophrenia. History Interval history: No new issues. Pt denies SI/HI Hospitalist Physical - Constitutional Vitals: Temp Pulse Resp BP Pulse Ox 98.3 F 72 18 138/76 99 11/07/18 07:36 11/07/18 09:28 11/07/18 07:36 11/07/18 09:28 11/07/18 14:02 General appearance: Present: mild distress, cachectic - EENT Eyes: Present: PERRL, EOM intact ENT: hearing intact, clear oral mucosa, dentition normal - Neck Neck: Present: supple, normal ROM - Respiratory Respiratory effort: normal Respiratory: bilateral: CTA - Cardiovascular Rhythm: regular Heart Sounds: Present: S1 & S2. Absent: gallop, rub - Extremities Extremities: no ischemia, No edema, Full ROM - Abdominal General gastrointestinal: soft, non-tender, non-distended, normal bowel sounds - Integumentary Integumentary: Present: clear, warm, dry - Neurologic Neurologic: CNII-XII intact, moves all extremities Results - Labs CBC & Chem 7: 11/06/18 11:58 11/07/18 04:25 Labs: Laboratory Last Values WBC 8.2 K/mm3 (4.5-11.0) 11/06/18 11:58 RBC 3.64 M/mm3 (3.65-5.03) L 11/06/18 11:58 Hgb 11.9 gm/dl (11.8-15.2) 11/06/18 11:58 Hct 37.2 % (35.5-45.6) 11/06/18 11:58 MCV 102 fl (84-94) H 11/06/18 11:58 MCH 33 pg (28-32) H 11/06/18 11:58 MCHC 32 % (32-34) 11/06/18 11:58 RDW 17.1 % (13.2-15.2) H 11/06/18 11:58 Plt Count 156 K/mm3 (140-440) 11/06/18 11:58 Lymph % (Auto) 18.9 % (13.4-35.0) 11/06/18 11:58 [place] % (Auto) 9.1 % (0.0-7.3) H 11/06/18 11:58 Eos % (Auto) 0.3 % (0.0-4.3) 11/06/18 11:58 Baso % (Auto) 0.4 % (0.0-1.8) 11/06/18 11:58 Lymph # 1.6 K/mm3 (1.2-5.4) 11/06/18 11:58 [place] # 0.8 K/mm3 (0.0-0.8) 11/06/18 11:58 Eos # 0.0 K/mm3 (0.0-0.4) 11/06/18 11:58 Baso # 0.0 K/mm3 (0.0-0.1) 11/06/18 11:58 Seg Neutrophils % 71.3 % (40.0-70.0) H 11/06/18 11:58 Seg Neutrophils # 5.9 K/mm3 (1.8-7.7) 11/06/18 11:58 Sodium 146 mmol/L (137-145) H 11/07/18 04:25 Potassium 3.4 mmol/L (3.6-5.0) L 11/07/18 04:25 Chloride 116.0 mmol/L (98-107) H 11/07/18 04:25 Carbon Dioxide 16 mmol/L (22-30) L 11/07/18 04:25 17 mmol/L 11/07/18 04:25 BUN 33 mg/dL (9-20) H 11/07/18 04:25 2.1 mg/dL (0.8-1.5) H 11/07/18 04:25 Estimated GFR 39 ml/min 11/07/18 04:25 16 % 11/07/18 04:25 Glucose 74 mg/dL (75-100) L 11/07/18 04:25 Calcium 8.9 mg/dL (8.4-10.2) 11/07/18 04:25 21.0 umol/L (25-60) L 11/06/18 11:58 172 units/L (55-170) H 11/06/18 11:58 CK-MB (CK-2) 4.0 ng/mL (0.0-4.0) 11/06/18 11:58 CK-MB (CK-2) Rel Index 2.3 (0-4) 11/06/18 11:58 < 0.010 ng/mL (0.00-0.029) 11/06/18 11:58 Yellow (Yellow) 11/06/18 12:12 Clear (Clear) 11/06/18 12:12 5.0 (5.0-7.0) 11/06/18 12:12 Ur Specific [place] 1.024 (1.003-1.030) 11/06/18 12:12 >2000 mg dl mg/dL (Negative) 11/06/18 12:12 Neg mg/dL (Negative) 11/06/18 12:12 Neg mg/dL (Negative) 11/06/18 12:12 Neg (Negative) 11/06/18 12:12 Neg (Negative) 11/06/18 12:12 Neg (Negative) 11/06/18 12:12 < 2.0 mg/dL (<2.0) 11/06/18 12:12 Ur Leukocyte Esterase Neg (Negative) 11/06/18 12:12 1.0 /HPF (0.0-6.0) 11/06/18 12:12 4.0 /HPF (0.0-6.0) 11/06/18 12:12 Few /HPF 11/06/18 12:12 Salicylates 28.0 mg/dL (2.8-20.0) H 11/06/18 11:58 Presumptive negative 11/06/18 12:12 Presumptive negative 11/06/18 12:12 Acetaminophen < 5.0 ug/mL (10.0-30.0) L 11/06/18 11:58 Ur Barbiturates Screen Presumptive negative 11/06/18 12:12 Ur Phencyclidine Scrn Presumptive negative 11/06/18 12:12 Ur Amphetamines Screen Presumptive negative 11/06/18 12:12 U Benzodiazepines Scrn Presumptive negative 11/06/18 12:12 Presumptive negative 11/06/18 12:12 U Marijuana (THC) Screen Presumptive negative 11/06/18 12:12 Disclamer 11/06/18 12:12 Plasma/Serum Alcohol < 0.01 % (0-0.07) 11/06/18 11:58 Active Medications - Current Medications Current Medications: Generic Name Dose Route Start Last Admin Trade Name Freq PRN Reason Stop Dose Admin Acetaminophen 650 mg 11/06/18 20:23 Tylenol PO Q4H PRN Pain MILD(1-3)/Fever >100.5/HORNE Acetaminophen/Hydrocodone Bitart 1 each 11/06/18 20:24 11/07/18 13:03 [place] 10/325 PO 1 each Q6H PRN Administration Pain Albuterol 2.5 mg 11/06/18 20:23 Proventil IH Q4HRT PRN Shortness Of Breath Aspirin 81 mg 11/07/18 10:00 11/07/18 09:27 Baby Aspirin PO 81 mg QDAY SKY Administration Atorvastatin Calcium 40 mg 11/06/18 22:00 11/06/18 22:28 Lipitor PO 40 mg QHS SYK Administration Docusate Sodium 100 mg 11/06/18 20:24 Colace PO BID PRN Constipation Hydralazine HCl 50 mg 11/07/18 08:00 11/07/18 09:27 Apresoline PO 50 mg TID SKY Administration Sodium Bicarbonate 100 meq/ 1,100 mls @ 100 mls/hr 11/07/18 12:00 11/07/18 11:59 Sterile Water IV 100 mls/hr DIRECT SKY Administration Lidocaine HCl 15 ml 11/07/18 08:00 11/07/18 09:29 Magic Mouthwash PO Not Given TID SKY Metoprolol Tartrate 25 mg 11/06/18 22:00 11/07/18 09:28 Lopressor PO 25 mg BID SKY Administration Miscellaneous Medication 1 each 11/07/18 10:00 Emtricitab/Rilpiviri/Tenof Ala [Odefsey Tablet] PO QAM SKY Nicotine 14 mg 11/07/18 10:00 11/07/18 09:26 Habitrol TD 14 mg QDAY SKY Administration Ondansetron HCl 4 mg 11/06/18 20:23 Zofran IV Q8H PRN Nausea And Vomiting Pantoprazole Sodium 40 mg 11/07/18 10:00 11/07/18 09:26 Protonix PO 40 mg DAILY SKY Administration Sodium Chloride 10 ml 11/06/18 22:00 11/07/18 09:28 Sodium Chloride Flush Syringe 10 Ml IV 10 ml BID SKY Administration Sodium Chloride 10 ml 11/06/18 20:23 Sodium Chloride Flush Syringe 10 Ml IV PRN PRN LINE FLUSH Spironolactone 25 mg 11/07/18 10:00 11/07/18 09:27 Aldactone PO 25 mg QDAY SKY Administration Nutrition/Malnutrition Assess - Dietary Evaluation Nutrition/Malnutrition Findings: Nutrition Notes Start: 11/07/18 10:08 Freq: Status: Active Protocol: Document 11/07/18 10:08 ROSANGELA (Rec: 11/07/18 10:40 ROSANGELA [id number]) Nutrition Notes Need for Assessment generated from: Low BMI Initial or Follow up Assessment Current Diagnosis COPD,Hypertension Other Pertinent Diagnosis HIV, substance abuse, Current Diet Cardiac Diet Labs/Tests Na: 146 BUN: 33 Pertinent Medications Reviewed Height 6 ft Weight 60.1 kg Usual Body Weight 70.9 kg [place] Body Weight (kg) 80.90 BMI 17.9 Weight change and time frame Pt stated he has lost about 15 # over the last 3 months Weight Status Underweight Subjective/Other Information Pt screened for low BMI of 17. 9. RD observed mild temporal wasting. 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 RD observed breakfast tray with about 2/3 of food missing . Pt agreed to try Ensure Enlive on breakfast trays, but fell asleep before he could provide flavor preference. Pt denied chewing/swallowing difficulties, as well as N/V/C /D. Percent of energy/protein needs met: 66%/73% Burn Absent Trauma Absent Current % PO Fair (50-74%) Minimum of two criteria Yes Interpretation of Weight Loss (severe) >7.5% in 3 months Muscle Mass Mild Depletion (non-severe) #1 Nutrition Diagnosis Malnutrition Etiology poor appetite [employer] PROF[employer]OR As Evidenced by Signs and Symptoms WL of more than 7.5% UBW in the past 3 months, mild temporal wasting Is patient on ventilator? No Is Patient Ambulatory and/or Out of Bed Yes REE-(Apollo-St. Jeor-ambulatory/OOB) [ 1864.200 NUTR.MSJOOB] Kcal/Kg value to use for calculation 35 Approximate Energy Requirements Using 2104 kcal/Kg Calculation Used for Recommendations Kcal/kg Additional Notes IBW: 80.9kg PRO: 1.25-1.5 g/kg BW (75-105 g/day) Fluid: 1 ml/kcal Nutrition Intervention Change Diet Order: Continue Cardiac Diet Add Supplement/Snack (indicate name/kcal Ensure Enlive, flavor rotate, /protein ) once daily Provides kCal: 350 Provides Protein (gm) 20 Goal #1 Pt to meet at least 80% of energy and protein needs via PO and ONS intakes Anticipated Discharge Needs: Cardiac diet with ONS PRN Follow-Up By: 11/12/18 Additional Comments F/u for PO intakes, ONS tolerance
[2018-11-08] MEDS: NORCO 10/325 PO PRN ×2 (03:13→08:46)
[2018-11-08 04:50] VITALS: BP 146/83
[2018-11-08 05:43] LABS: Basophils % (Auto) 0.3 % (0.0-1.8); Eosinophils # (Auto) 0.2 K/mm3 (0.0-0.4); Eosinophils % (Auto) 3.9 % (0.0-4.3); Hematocrit 30.4 % (35.5-45.6); Hemoglobin 10.4 gm/dl (11.8-15.2); Lymphocytes % (Auto) 35.9 % (13.4-35.0); Mean Corpuscular HGB Conc 34 % (32-34); Mean Corpuscular Volume 97 fl (84-94); Monocytes # (Auto) 0.7 K/mm3 (0.0-0.8); Monocytes % (Auto) 12.2 % (0.0-7.3); Platelet Count 147 K/mm3 (140-440); Red Blood Count 3.13 M/mm3 (3.65-5.03); Red Cell Distribution Width 16.1 % (13.2-15.2)
[2018-11-08 06:03] LABS: Calcium 8.2 mg/dL (8.4-10.2)
--- NOTE | 2018-11-08 07:36 | Discharge Summary ---
Providers - Providers Date of Admission: 11/06/18 20:23 Date of discharge: 11/08/18 Attending physician: NIMA MEDELLIN 11/07/18 06:05 Consult to Physician [CONS] Routine Comment: Consulting Provider: GAGE SOUSA Physician Instructions: Reason For Exam: TUAN 11/07/18 06:20 Consult to Mental Health [CONS] Routine Reason For Exam: Schizophrenia, Overdose? Place consult to:: Psych Notified:: GEGE Phone number called:: [phone] Was contact made?: Yes If yes, spoke with:: GEGE Time called:: 08:00 Primary care physician: BROKER Hospitalization Reason for admission: AMS Condition: Fair Hospital course: 62 YO Male with HTN, COPD, [place], HIV, Schizophrenia, [place], Cardiomyopathy S/P Pacemaker placement presents to ED for evaluation. The patient was lethargic and unable to provide history on admission. 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 EMS was notified, and upon arrival the patient was found to be unresponsive. EMS reports finding empty prescription bottles near the patient. No medication type reported. Pt treated with Narcan and transported to [facility]. Pt seen and evaluated in ED and found to have Encephalopathy, TUAN secondary to vasomotor nephropathy/dehydration, Acidosis as elevated salicylate level. Pt was lethargic but had a positive gag reflex and was able to protect his airway. Nephrology consulted in ED. Pt admitted to telemetry. Mental Health consulted for possible overdose. Upon my interview, patient vehemently denies suicidal or homicidal ideations. Patient reported that he took approximately 3 oxycodone which caused him to be lethargic. Patient received IV fluid hydration with decrease in his creatinine from 2.5 to near baseline(1.4) overall 0.5 at discharge. Metoprolol evaluate the patient and if cleared patient will discharge home. Dedicated discharge time 32 minutes. Disposition: DC-01 TO HOME OR SELFCARE Time spent for discharge: 32 - Discharge Diagnoses (1) Vasomotor nephropathy Status: Acute (2) TUAN (acute kidney injury) Status: Acute (3) Altered mental status Status: Acute (4) Encephalopathy Status: Acute (5) HIV (human immunodeficiency virus infection) Status: Acute Qualifiers: HIV symptom status: unspecified Qualified Code(s): B20 - Human immunodeficiency virus [HIV] disease (6) HTN (hypertension) Status: Acute Qualifiers: Hypertension type: essential hypertension Qualified Code(s): I10 - Essential (primary) hypertension (7) Overdose Status: Suspected Qualifiers: Encounter type: initial encounter (8) Acute kidney injury superimposed on CKD Status: Acute (9) Anemia Status: Acute (10) Hypertension Status: Chronic Qualifiers: Hypertension type: essential hypertension Qualified Code(s): I10 - Essential (primary) hypertension (11) Schizophrenia Status: Chronic Core Measure Documentation - Palliative Care Palliative Care/ Comfort Measures: Not Applicable - Core Measures Any of the following diagnoses?: none Exam - Constitutional Vitals: Temp Pulse Resp BP Pulse Ox 97.5 F L 63 18 146/83 97 11/08/18 03:54 11/08/18 03:54 11/08/18 03:54 11/08/18 03:54 11/08/18 03:54 General appearance: Present: no acute distress, well-nourished - EENT Eyes: Present: PERRL ENT: hearing intact, clear oral mucosa - Neck Neck: Present: supple, normal ROM - Respiratory Respiratory effort: normal Respiratory: bilateral: CTA - Cardiovascular Heart Sounds: Present: S1 & S2. Absent: rub, click - Extremities Extremities: pulses symmetrical, No edema Peripheral Pulses: within normal limits - Abdominal General gastrointestinal: Present: soft, non-tender, non-distended, normal bowel sounds Male genitourinary: Present: normal - Integumentary Integumentary: Present: clear, warm, dry - Musculoskeletal Musculoskeletal: gait normal, strength equal bilaterally - Psychiatric Psychiatric: appropriate mood/affect, intact judgment & insight - Neurologic Neurologic: CNII-XII intact, moves all extremities Plan Activity: no restrictions Weight Bearing Status: Full Weight Bearing Diet: regular Follow up with: PRIMARY CARE, [Primary Care Provider] - 3-5 Days Prescriptions: Spironolactone [Aldactone] 25 mg PO QDAY #30 tablet hydrALAZINE [Apresoline TAB] 50 mg PO TID #90 tab Aspirin [Aspirin BABY CHEW TAB] 81 mg PO QDAY #30 tab.chew Docusate Sodium [Colace CAP] 100 mg PO BID PRN #20 capsule PRN Reason: Constipation AtorvaSTATin [Lipitor] 40 mg PO QHS #30 tablet Metoprolol [Lopressor TAB] 25 mg PO BID #60 tablet Pantoprazole [Protonix TAB] 40 mg PO DAILY #30 tablet
[2018-11-08] MEDS ORDERED: K-DUR PO ONE (08:00)
[2018-11-08] MEDS: APRESOLINE PO SCH (08:46)
[2018-11-08] MEDS: ALDACTONE PO SCH (10:55)
[2018-11-08] MEDS: HABITROL TD SCH (10:56)
[2018-11-08] MEDS: BABY ASPIRIN PO SCH (10:56)
[2018-11-08] MEDS: MAGIC MOUTHWASH PO SCH (10:57)
[2018-11-08] MEDS: SODIUM CHLORIDE FLUSH SYRINGE 10 ML IV SCH (10:57)
[2018-11-08] MEDS: PROTONIX PO SCH (10:57)
[2018-11-08] MEDS: LOPRESSOR PO SCH (10:57)
--- NOTE | 2018-11-08 11:05 | Progress Note ---
Assessment and Plan 1. Acute kidney injury: Vasomotor TUAN superimposed on CKD in the setting of volume depletion. UA with proteinuria. Renal function is better. Continue IV fluids. Monitor renal function. Avoid nephrotoxic agents. 2. FEN: Metabolic acidosis, on bicarbonate drip. Hypernatremia, improved. Replete K. Monitor lytes. 3. Encephalopathy: Improving / improved. 4. HIV. If discharged, f/u with me in 1-2 weeks. Subjective Date of service: 11/08/18 Interval history: Patient was seen and examined at the bedside. Doing better. Objective - Vital Signs Vital signs: Vital Signs - 12hr 11/08/18 11/08/18 11/08/18 00:37 03:54 10:55 Temperature 97.9 F 97.5 F L Pulse Rate 63 63 63 Respiratory 18 18 Rate Blood Pressure 126/61 146/83 146/83 O2 Sat by Pulse 98 97 Oximetry 11/08/18 10:57 Temperature Pulse Rate 68 Respiratory Rate Blood Pressure 146/83 O2 Sat by Pulse Oximetry - General Appearance General appearance: well-developed, appears stated age, other (no distress) EENT: ATNC, PERRL, hearing intact, vision intact Neck: supple Respiratory: Present: Clear to Ascultation Cardiology: regular, S1S2, no murmurs Gastrointestinal: normoactive bowel sounds, no tenderness, no distended Integumentary: no rash, warm and dry Neurologic: no focal deficit, no asterixis, alert and oriented x3 Musculoskeletal: other (no edema) - Lab 11/08/18 04:41 11/08/18 04:41 Most recent lab results Calcium 8.2 mg/dL (8.4-10.2) L 11/08/18 04:41 Medications & Allergies - Medications Allergies/Adverse Reactions: Allergies Lettuce Allergy (Uncoded 09/18/18 17:27) Unknown Home Medications: Home Medications Medication Instructions Recorded Confirmed Last Taken Type Emtricitab/Rilpiviri/Tenof Ala 1 each PO QAM 09/17/18 11/06/18 Unknown History [Odefsey Tablet] Ibuprofen [Motrin 800 MG tab] 800 mg PO BID PRN 09/17/18 11/06/18 Unknown History Lisinopril [Zestril TAB] 40 mg PO QDAY #30 tablet 09/24/18 11/06/18 Unknown Rx Nicotine [Habitrol] 14 mg TD QDAY #30 patch 09/24/18 11/06/18 Unknown Rx Aspirin [Aspirin BABY CHEW TAB] 81 mg PO QDAY #30 tab.chew 11/08/18 Unknown Rx AtorvaSTATin [Lipitor] 40 mg PO QHS #30 tablet 11/08/18 Unknown Rx Docusate Sodium [Colace CAP] 100 mg PO BID PRN #20 capsule 11/08/18 Unknown Rx Metoprolol [Lopressor TAB] 25 mg PO BID #60 tablet 11/08/18 Unknown Rx Nystas/Diphen/Xyl Visc/Mylanta 15 ml PO TID oral.liqd 11/08/18 Unknown Rx [Magic Mouthwash] Pantoprazole [Protonix TAB] 40 mg PO DAILY #30 tablet 11/08/18 Unknown Rx Spironolactone [Aldactone] 25 mg PO QDAY #30 tablet 11/08/18 Unknown Rx hydrALAZINE [Apresoline TAB] 50 mg PO TID #90 tab 11/08/18 Unknown Rx Active Medications: Generic Name Dose Route Start Last Admin Trade Name Freq PRN Reason Stop Dose Admin Acetaminophen 650 mg 11/06/18 20:23 Tylenol PO Q4H PRN Pain MILD(1-3)/Fever >100.5/HORNE Acetaminophen/Hydrocodone Bitart 1 each 11/06/18 20:24 11/08/18 08:46 [place] 10/325 PO 1 each Q6H PRN Administration Pain Albuterol 2.5 mg 11/06/18 20:23 Proventil IH Q4HRT PRN Shortness Of Breath Aspirin 81 mg 11/07/18 10:00 11/08/18 10:56 Baby Aspirin PO 81 mg QDAY SKY Administration Atorvastatin Calcium 40 mg 11/06/18 22:00 11/07/18 21:00 Lipitor PO 40 mg QHS SKY Administration Docusate Sodium 100 mg 11/06/18 20:24 Colace PO BID PRN Constipation Hydralazine HCl 50 mg 11/07/18 08:00 11/08/18 08:46 Apresoline PO 50 mg TID SKY Administration Sodium Bicarbonate 100 meq/ 1,100 mls @ 100 mls/hr 11/07/18 12:00 11/07/18 22:57 Sterile Water IV 100 mls/hr DIRECT SKY Administration Lidocaine HCl 15 ml 11/07/18 08:00 11/08/18 10:57 Magic Mouthwash PO 15 ml TID SKY Administration Metoprolol Tartrate 25 mg 11/06/18 22:00 11/08/18 10:57 Lopressor PO 25 mg BID SKY Administration Miscellaneous Medication 1 each 11/07/18 10:00 Emtricitab/Rilpiviri/Tenof Ala [Odefsey Tablet] PO QAM SKY Nicotine 14 mg 11/07/18 10:00 11/08/18 10:56 Habitrol TD 14 mg QDAY SKY Administration Ondansetron HCl 4 mg 11/06/18 20:23 Zofran IV Q8H PRN Nausea And Vomiting Pantoprazole Sodium 40 mg 11/07/18 10:00 11/08/18 10:57 Protonix PO 40 mg DAILY SKY Administration Sodium Chloride 10 ml 11/06/18 22:00 11/08/18 10:57 Sodium Chloride Flush Syringe 10 Ml IV 10 ml BID SKY Administration Sodium Chloride 10 ml 11/06/18 20:23 Sodium Chloride Flush Syringe 10 Ml IV PRN PRN LINE FLUSH Spironolactone 25 mg 11/07/18 10:00 11/08/18 10:55 Aldactone PO 25 mg QDAY SKY Administration
--- NOTE | 2018-11-08 11:05 | Consultation ---
History of Present Illness - Reason for Consult Consult date: 11/08/18 acute renal failure, hypokalemia, metabolic acidosis - History of Present Illness The patient is a 62 YO male with history significant for HTN, COPD, CAD/RI, HIV, Schizophrenia, CKD and Cardiomyopathy s/p Pacemaker placement who presented to [facility] ED for evaluation of AMS. The patient is a poor historian and there was no family members at the bedside. Pt was found down and unresponsive by his roommate. Patient admits taking 4 tablets of Aspirin and decreased PO intake. EMS reported that there were bottles of prescription medications found near the patient. EMS gave 0.5 mg of Narcan prior to arrival. In the ER the patient was somnolent and awakens to tactile stimuli but does not answer questions. Patient was admitted with Encephalopathy, TUAN, Acidosis and elevated salicylate level. Labs significant for creatinine 2.5 and bicarb 16. Nephrology was consulted for further evaluation. Past History Past Medical History: acute RI, COPD, HIV/AIDS, hypertension, other (Ca rdiomyopathy, malnutrition, Schizophrenia) Past Surgical History: No surgical history, Other (reviewed) Social history: Family history: hypertension Medications and Allergies Allergies Allergy/AdvReac Type Severity Reaction Status Date / Time Lettuce Allergy Unknown Uncoded 09/18/18 17:27 Home Medications Medication Instructions Recorded Confirmed Last Taken Type Emtricitab/Rilpiviri/Tenof Ala 1 each PO QAM 09/17/18 11/06/18 Unknown History [Odefsey Tablet] Ibuprofen [Motrin 800 MG tab] 800 mg PO BID PRN 09/17/18 11/06/18 Unknown History Lisinopril [Zestril TAB] 40 mg PO QDAY #30 tablet 09/24/18 11/06/18 Unknown Rx Nicotine [Habitrol] 14 mg TD QDAY #30 patch 09/24/18 11/06/18 Unknown Rx Aspirin [Aspirin BABY CHEW TAB] 81 mg PO QDAY #30 tab.chew 11/08/18 Unknown Rx AtorvaSTATin [Lipitor] 40 mg PO QHS #30 tablet 11/08/18 Unknown Rx Docusate Sodium [Colace CAP] 100 mg PO BID PRN #20 capsule 11/08/18 Unknown Rx Metoprolol [Lopressor TAB] 25 mg PO BID #60 tablet 11/08/18 Unknown Rx Nystas/Diphen/Xyl Visc/Mylanta 15 ml PO TID oral.liqd 11/08/18 Unknown Rx [Magic Mouthwash] Pantoprazole [Protonix TAB] 40 mg PO DAILY #30 tablet 11/08/18 Unknown Rx Spironolactone [Aldactone] 25 mg PO QDAY #30 tablet 11/08/18 Unknown Rx hydrALAZINE [Apresoline TAB] 50 mg PO TID #90 tab 11/08/18 Unknown Rx Active Meds: Active Medications Acetaminophen (Tylenol) 650 mg PO Q4H PRN PRN Reason: Pain MILD(1-3)/Fever >100.5/HORNE Acetaminophen/Hydrocodone Bitart ([place] 10/325) 1 each PO Q6H PRN PRN Reason: Pain Last Admin: 11/08/18 08:46 Dose: 1 each Documented by: Albuterol (Proventil) 2.5 mg IH Q4HRT PRN PRN Reason: Shortness Of Breath Aspirin (Baby Aspirin) 81 mg PO QDAY [facility] Last Admin: 11/08/18 10:56 Dose: 81 mg Documented by: Atorvastatin Calcium (Lipitor) 40 mg PO QHS [facility] Last Admin: 11/07/18 21:00 Dose: 40 mg Documented by: Docusate Sodium (Colace) 100 mg PO BID PRN PRN Reason: Constipation Hydralazine HCl (Apresoline) 50 mg PO TID [facility] Last Admin: 11/08/18 08:46 Dose: 50 mg Documented by: Sodium Bicarbonate 100 meq/ (Sterile Water) 1,100 mls @ 100 mls/hr IV DIRECT [facility] Last Admin: 11/07/18 22:57 Dose: 100 mls/hr Documented by: Lidocaine HCl (Magic Mouthwash) 15 ml PO TID [facility] Last Admin: 11/08/18 10:57 Dose: 15 ml Documented by: Metoprolol Tartrate (Lopressor) 25 mg PO BID [facility] Last Admin: 11/08/18 10:57 Dose: 25 mg Documented by: Miscellaneous Medication (Emtricitab/Rilpiviri/Tenof Ala [Odefsey Tablet]) 1 each PO QAM [facility] Nicotine (Habitrol) 14 mg TD QDAY [facility] Last Admin: 11/08/18 10:56 Dose: 14 mg Documented by: Ondansetron HCl (Zofran) 4 mg IV Q8H PRN PRN Reason: Nausea And Vomiting Pantoprazole Sodium (Protonix) 40 mg PO DAILY [facility] Last Admin: 11/08/18 10:57 Dose: 40 mg Documented by: Sodium Chloride (Sodium Chloride Flush Syringe 10 Ml) 10 ml IV BID [facility] Last Admin: 11/08/18 10:57 Dose: 10 ml Documented by: Sodium Chloride (Sodium Chloride Flush Syringe 10 Ml) 10 ml IV PRN PRN PRN Reason: LINE FLUSH Spironolactone (Aldactone) 25 mg PO QDAY [facility] Last Admin: 11/08/18 10:55 Dose: 25 mg Documented by: Review of Systems ROS unobtainable: due to mental status (patient couldn't remember) Exam - Vital Signs Vital signs: Vital Signs Temp Pulse Resp BP Pulse Ox 98.4 F 91 H 18 152/88 100 11/06/18 10:46 11/06/18 10:46 11/06/18 10:46 11/06/18 10:46 11/06/18 10:46 - General Appearance General appearance: well-developed, appears stated age, other (no distress) EENT: ATNC, PERRL, mucous membranes dry, hearing intact, vision intact Neck: Present: neck supple, trachea midline Respiratory: Clear to Ascultation Heart: regular, S1S2, no murmurs Gastrointestinal: Present: normoactive bowel sounds. Absent: tenderness, distended Integumentary: no rash, warm and dry Neurologic: no focal deficit, no asterixis, alert and oriented x3 Musculoskeletal: Present: other (no edema) Results - Lab Results 11/08/18 04:41 11/08/18 04:41 Most recent lab results Calcium 8.2 mg/dL (8.4-10.2) L 11/08/18 04:41 Assessment and Plan 1. Acute kidney injury: Vasomotor TUAN superimposed on CKD in the setting of volume depletion. UA with proteinuria. Renal function is improving. Continue IV fluids. Monitor renal function. Avoid nephrotoxic agents. 2. FEN: Metabolic acidosis, start on bicarbonate drip. Hypernatremia, hypotonic IV fluids. Replete K. Monitor lytes. 3. Encephalopathy: Improving / improved. 4. HIV.
== END 2018-11-08 11:45 | disposition left against medical advice (07) | DRG 917 ==
LOC: ED 10:30 → 4A 20:23
PROVIDERS: ADMIT Internal Medicine; ATTEND Hospitalist
DX: T40.2X4A Poisoning by other opioids, undetermined, initial encounter (principal); N17.0 Acute kidney failure with tubular necrosis; G93.40 Encephalopathy, unspecified; B20 Human immunodeficiency virus [HIV] disease; E87.2 Acidosis; E87.0 Hyperosmolality and hypernatremia; I25.2 Old myocardial infarction; J44.9 Chronic obstructive pulmonary disease, unspecified; N18.9 Chronic kidney disease, unspecified; I12.9 Hypertensive chronic kidney disease with stage 1 through stage 4 chronic kidney disease, or unspecified chronic kidney disease; E86.0 Dehydration; D64.9 Anemia, unspecified; F20.9 Schizophrenia, unspecified; Z53.21 Procedure and treatment not carried out due to patient leaving prior to being seen by health care provider; Z95.0 Presence of cardiac pacemaker; Y92.89 Other specified places as the place of occurrence of the external cause
CPT/HCPCS: 36415; 70450; 80048; 80307; 80320; 81001; 82140; 82550; 82553; 84484; 85025; 93005; 93010; 96374; 96375; G0378; A9270-GY; G0480; J2310; J2405; J3246

== ENCOUNTER 2018-12-31 14:14 | Emergency (ER) | payer MEDICARE ==
--- NOTE | 2018-12-31 14:20 | Emergency Department Report ---
Blank Doc - Documentation Documentation: 63-year-old male that presents with URI symptoms. This initial assessment/diagnostic orders/clinical plan/treatment(s) is/are subject to change based on patient's health status, clinical progression and re- assessment by fellow clinical providers in the ED. Further treatment and workup at subsequent clinical providers discretion. Patient/guardians urged not to elope from the ED as their condition may be serious if not clinically assessed and managed. Initial orders include: 1- Patient sent to [facility] for further evaluation and treatment 2- CXR
[2018-12-31 14:22] VITALS: BP 141/87
--- NOTE | 2018-12-31 14:48 | XRay Report ---
CHEST 2 VIEWS INDICATION: cough. Coughing since yesterday COMPARISON: 09/27/2018 FINDINGS: Support devices: Stable satisfactory device positioning. Heart: Within normal limits. Lungs/pleura: No acute air space or interstitial disease. Scattered calcifications in the right uppe r lobe again noted in this patient with underlying COPD changes. Additional findings: None. IMPRESSION: 1. No acute findings. Signer Name: Chema Thomas MD Signed: 12/31/2018 2:43 PM Workstation Name: [id number]
[2018-12-31] MEDS ORDERED: methylPREDNISolone Sod Succinate 125 MG/2 ML INJ IV ONE (15:22)
[2018-12-31] MEDS ORDERED: SODIUM CHLORIDE 0.9% 1000 ML 1,000 ML IV ONE (15:22)
[2018-12-31] MEDS ORDERED: IPRATROPIUM 0.02% NEBU 2.5 ML IH ONE (15:22)
[2018-12-31] MEDS ORDERED: ALBUTEROL 2.5 MG/3 ML NEBU IH ONE (15:22)
[2018-12-31 16:02] LABS: Basophils # (Auto) 0.1 K/mm3 (0.0-0.1); Basophils % (Auto) 1.4 % (0.0-1.8); Eosinophils # (Auto) 0.5 K/mm3 (0.0-0.4); Hemoglobin 13.5 gm/dl (11.8-15.2); Lymphocytes # (Auto) 1.8 K/mm3 (1.2-5.4); Lymphocytes % (Auto) 21.8 % (13.4-35.0); Mean Corpuscular HGB Conc 34 % (32-34); Mean Corpuscular Volume 98 fl (84-94); Monocytes # (Auto) 0.9 K/mm3 (0.0-0.8); Monocytes % (Auto) 11.2 % (0.0-7.3); Platelet Count 180 K/mm3 (140-440); Red Blood Count 4.09 M/mm3 (3.65-5.03); Red Cell Distribution Width 14.3 % (13.2-15.2)
[2018-12-31] MEDS ORDERED: MORPHINE 4 MG/1 ML INJ IV ONE (16:23)
[2018-12-31 16:27] LABS: Calcium 7.9 mg/dL (8.4-10.2)
--- NOTE | 2018-12-31 17:55 | Emergency Department Report ---
ED General Adult HPI - General Chief complaint: Upper Respiratory Infection Stated complaint: FLU SYMPTOMS Time Seen by Provider: 12/31/18 14:19 Source: patient Mode of arrival: Ambulatory Limitations: No Limitations - History of Present Illness Initial comments: Patient is a 63-year-old -[place] male with past medical history of COPD and coronary artery disease as well as hypertension who is presenting with cough cold congestion for the past 3 days. Patient states he has a cough is productive of clear sputum. She has subjective fevers and chills with dizziness. Patient also states has arm and leg body aches. Patient denies nausea vomiting diarrhea at this time. Severity scale (0 -10): 4 Associated Symptoms: denies: confusion - Related Data Home Medications Medication Instructions Recorded Confirmed Last Taken Emtricitab/Rilpiviri/Tenof Ala 1 each PO QAM 09/17/18 11/06/18 Unknown [Odefsey Tablet] Ibuprofen [Motrin 800 MG tab] 800 mg PO BID PRN 09/17/18 11/06/18 Unknown Previous Rx's Medication Instructions Recorded Last Taken Type Lisinopril [Zestril TAB] 40 mg PO QDAY #30 tablet 09/24/18 Unknown Rx Nicotine [Habitrol] 14 mg TD QDAY #30 patch 09/24/18 Unknown Rx Aspirin [Aspirin BABY CHEW TAB] 81 mg PO QDAY #30 tab.chew 11/08/18 Unknown Rx AtorvaSTATin [Lipitor] 40 mg PO QHS #30 tablet 11/08/18 Unknown Rx Docusate Sodium [Colace CAP] 100 mg PO BID PRN #20 capsule 11/08/18 Unknown Rx Metoprolol [Lopressor TAB] 25 mg PO BID #60 tablet 11/08/18 Unknown Rx Nystas/Diphen/Xyl Visc/Mylanta 15 ml PO TID oral.liqd 11/08/18 Unknown Rx [Magic Mouthwash] Pantoprazole [Protonix TAB] 40 mg PO DAILY #30 tablet 11/08/18 Unknown Rx Spironolactone [Aldactone] 25 mg PO QDAY #30 tablet 11/08/18 Unknown Rx hydrALAZINE [Apresoline TAB] 50 mg PO TID #90 tab 11/08/18 Unknown Rx ALBUTEROL Inhaler (OR & NICU) 2 puff IH QID PRN #1 inhalation 12/31/18 Unknown Rx [ProAir HFA Inhaler] ALBUTEROL NEB's [Proventil 0.083% 5 mg IH TID PRN #20 neb 12/31/18 Unknown Rx NEBS] Azithromycin [Zithromax Z-DORITA] 250 mg PO DAILY #6 tablet 12/31/18 Unknown Rx HYDROcodone/APAP 5-325 [[place] 1 each PO Q6HR PRN #14 tablet 12/31/18 Unknown Rx 5/325] Nebulizer and Compressor [Easy Air 1 each [facility] PRN #1 each 12/31/18 Unknown Rx Compressor Nebulizer] predniSONE [Deltasone] 20 mg PO QDAY #5 tab 12/31/18 Unknown Rx Allergies Allergy/AdvReac Type Severity Reaction Status Date / Time Lettuce Allergy Unknown Uncoded 09/18/18 17:27 ED Review of Systems ROS: Stated complaint: FLU SYMPTOMS Other details as noted in HPI Comment: All other systems reviewed and negative ED Past Medical Hx - Past Medical History Previous Medical History?: Yes Hx Hypertension: Yes Hx Heart Attack/AMI: Yes Hx Congestive Heart Failure: No Hx Diabetes: No Hx Psychiatric Treatment: Yes Hx Asthma: No Hx COPD: Yes Hx HIV: Yes Additional medical history: Schizophrenia - Surgical History Past Surgical History?: Yes Hx Pacemaker: Yes - Social History Smoking Status: Current Every Day Smoker Substance Use Type: Alcohol - Medications Home Medications: Home Medications Medication Instructions Recorded Confirmed Last Taken Type Emtricitab/Rilpiviri/Tenof Ala 1 each PO QAM 09/17/18 11/06/18 Unknown History [Odefsey Tablet] Ibuprofen [Motrin 800 MG tab] 800 mg PO BID PRN 09/17/18 11/06/18 Unknown History Lisinopril [Zestril TAB] 40 mg PO QDAY #30 tablet 09/24/18 11/06/18 Unknown Rx Nicotine [Habitrol] 14 mg TD QDAY #30 patch 09/24/18 11/06/18 Unknown Rx Aspirin [Aspirin BABY CHEW TAB] 81 mg PO QDAY #30 tab.chew 11/08/18 Unknown Rx AtorvaSTATin [Lipitor] 40 mg PO QHS #30 tablet 11/08/18 Unknown Rx Docusate Sodium [Colace CAP] 100 mg PO BID PRN #20 capsule 11/08/18 Unknown Rx Metoprolol [Lopressor TAB] 25 mg PO BID #60 tablet 11/08/18 Unknown Rx Nystas/Diphen/Xyl Visc/Mylanta 15 ml PO TID oral.liqd 11/08/18 Unknown Rx [Magic Mouthwash] Pantoprazole [Protonix TAB] 40 mg PO DAILY #30 tablet 11/08/18 Unknown Rx Spironolactone [Aldactone] 25 mg PO QDAY #30 tablet 11/08/18 Unknown Rx hydrALAZINE [Apresoline TAB] 50 mg PO TID #90 tab 11/08/18 Unknown Rx ALBUTEROL Inhaler (OR & NICU) 2 puff IH QID PRN #1 inhalation 12/31/18 Unknown Rx [ProAir HFA Inhaler] ALBUTEROL NEB's [Proventil 0.083% 5 mg IH TID PRN #20 neb 12/31/18 Unknown Rx NEBS] Azithromycin [Zithromax Z-DORITA] 250 mg PO DAILY #6 tablet 12/31/18 Unknown Rx HYDROcodone/APAP 5-325 [[place] 1 each PO Q6HR PRN #14 tablet 12/31/18 Unknown Rx 5/325] Nebulizer and Compressor [Easy Air 1 each [facility] PRN #1 each 12/31/18 Unknown Rx Compressor Nebulizer] predniSONE [Deltasone] 20 mg PO QDAY #5 tab 12/31/18 Unknown Rx ED Physical Exam - General Limitations: No Limitations General appearance: alert, in no apparent distress - Head Head exam: Present: atraumatic, normocephalic - Eye Eye exam: Present: normal appearance - ENT ENT exam: Present: mucous membranes moist - Neck Neck exam: Present: normal inspection - Respiratory Respiratory exam: Present: normal lung sounds bilaterally, wheezes. Absent: respiratory distress, rales, rhonchi - Cardiovascular Cardiovascular Exam: Present: regular rate, normal rhythm, normal heart sounds. Absent: systolic murmur, diastolic murmur, rubs, gallop - GI/Abdominal GI/Abdominal exam: Present: soft, normal bowel sounds. Absent: distended, tenderness, guarding, rebound - Rectal Rectal exam: Present: deferred - Extremities Exam Extremities exam: Present: normal inspection - Back Exam Back exam: Present: normal inspection - Neurological Exam Neurological exam: Present: alert, oriented X3 - Psychiatric Psychiatric exam: Present: normal affect, normal mood - Skin Skin exam: Present: warm, dry, intact, normal color. Absent: rash ED Course Vital Signs 12/31/18 12/31/18 14:20 16:46 Temperature 98.1 F Pulse Rate 95 H 99 H Respiratory 24 22 Rate Blood Pressure 141/87 O2 Sat by Pulse 98 Oximetry ED Medical Decision Making - Lab Data Result diagrams: 12/31/18 15:40 12/31/18 16:00 Lab Results 12/31/18 12/31/18 12/31/18 Range/Units 15:40 15:44 16:00 WBC 8.3 (4.5-11.0) K/mm3 RBC 4.09 (3.65-5.03) M/mm3 Hgb 13.5 (11.8-15.2) gm/dl Hct 40.0 (35.5-45.6) % MCV 98 H (84-94) fl MCH 33 H (28-32) pg MCHC 34 (32-34) % RDW 14.3 (13.2-15.2) % Plt Count 180 (140-440) K/mm3 Lymph % (Auto) 21.8 (13.4-35.0) % Hughes % (Auto) 11.2 H (0.0-7.3) % Eos % (Auto) 6.0 H (0.0-4.3) % Baso % (Auto) 1.4 (0.0-1.8) % Lymph # 1.8 (1.2-5.4) K/mm3 Hughes # 0.9 H (0.0-0.8) K/mm3 Eos # 0.5 H (0.0-0.4) K/mm3 Baso # 0.1 (0.0-0.1) K/mm3 Seg Neutrophils % 59.6 (40.0-70.0) % Seg Neutrophils # 4.9 (1.8-7.7) K/mm3 Sodium 140 (137-145) mmol/L Potassium 4.8 (3.6-5.0) mmol/L Chloride 102.9 (98-107) mmol/L Carbon Dioxide 21 L (22-30) mmol/L Anion Gap 21 mmol/L BUN 14 (9-20) mg/dL Creatinine 2.0 H (0.8-1.5) mg/dL Estimated GFR 41 ml/min BUN/Creatinine Ratio 7 % Glucose 90 (75-100) mg/dL Calcium 7.9 L (8.4-10.2) mg/dL Influenza A (Rapid) Negative (Negative) Influenza B (Rapid) Negative (Negative) - Radiology Data Radiology results: image reviewed (chest x-ray is negative for consolidation however the patient does have air trapping) - Medical Decision Making Patient is a 63-year-old -[place] male who is presenting with cough cold congestion subjective fevers and body aches. Patient has flulike symptoms out of his flu test were negative. Because of the patient's significant wheezing and fever will also perform a chest x-ray will check labs to rule out pneumonia. There is no pneumonia seen on x-ray. Patient's wheezing has improved at the hour-long neb treatment. Patient will be discharged home with medications for symptomatic relief. Critical Care Time: Yes (30) Critical care attestation.: If time is entered above; I have spent that time in minutes in the direct care of this critically ill patient, excluding procedure time. ED Disposition Clinical Impression: Acute bronchitis, Acute exacerbation of chronic obstructive pulmonary disease (COPD) Disposition: DC-01 TO HOME OR SELFCARE Is pt being admited?: No Does the pt Need Aspirin: No Condition: Stable Instructions: Acute Bronchitis (ED), Chronic Obstructive Pulmonary Disease (ED) Referrals: LILA BARNES MD [Staff Physician] - 3-5 Days Time of Disposition: 17:55
== END 2018-12-31 16:50 | disposition home or self-care (01) ==
LOC: ED 14:14
DX: J44.1 Chronic obstructive pulmonary disease with (acute) exacerbation (principal); J20.9 Acute bronchitis, unspecified; I10 Essential (primary) hypertension; R42 Dizziness and giddiness; F17.200 Nicotine dependence, unspecified, uncomplicated; F20.9 Schizophrenia, unspecified; Z88.8 Allergy status to other drugs, medicaments and biological substances; Z79.899 Other long term (current) drug therapy; Z79.82 Long term (current) use of aspirin; Z21 Asymptomatic human immunodeficiency virus [HIV] infection status; Z95.0 Presence of cardiac pacemaker
CPT/HCPCS: 36415; 71046; 80048; 85025; 87400; 94640; 96361; 96374; 96375; 99284; J2270; J2930; J7030